=== PATIENT | female | born 1960 | race Caucasian/White ===

== ENCOUNTER 2017-04-26 13:57 | Emergency (ER) | payer BC ==
--- NOTE | 2017-04-26 15:21 | ED ---
General Adult HPI - General Chief complaint: Shortness of Breath Stated complaint: SOB Time Seen by Provider: 04/26/17 15:16 Source: patient Mode of arrival: ambulatory Limitations: no limitations - History of Present Illness Initial comments: Daisy is a 56-year-old every day cigarette smoker who presents to the emergency department today for evaluation of persistent cough and shortness of breath. Patient reports that she saw her primary care physician approximately 3 weeks ago and was diagnosed with bronchitis. At that time she was prescribed an antibiotic, despite being compliant with antibiotic Daisy reports she's had persistent nonproductive cough and progressively worsening shortness of breath. ALLERGY reports that she's been using her home nebulizer 1-2 times daily, though she did not use it today because she was too busy. She reports she has transient improvement in her symptoms after using her nebulizer however her shortness of breath and nonproductive cough persist. She reports a history of pulmonary embolism diagnosed 2 years ago, she states that at that time she had had bronchitis for approximately one month and was diagnosed with a pulmonary embolism. She states she did not stay in hospital and was not started on anticoagulation. She reports a vague tightness in her chest which she experienced last week but no recent chest pain, no exertional chest pain, nausea, vomiting, fevers, chills change in bowel or bladder habits. MD Complaint: Cough Onset/Timin -: week(s) Radiation: non-radiation Severity scale (1-10): 7 Consistency: intermittent Improves with: medication (Nebulizer) Worsens with: other (Smoking) Associated Symptoms: denies other symptoms - Related Data Home Medications Medication Instructions Recorded Confirmed Aspirin EC [Ecotrin Low Dose] 162 mg PO DAILY PRN 04/26/17 04/26/17 Previous Rx's Medication Instructions Recorded Azithromycin 250 mg PO DAILY #4 tablet 04/26/17 predniSONE 50 mg PO DAILY #5 tablet 04/26/17 Allergies Allergy/AdvReac Type Severity Reaction Status Date / Time Penicillins Allergy Unknown Verified 04/26/17 15:20 Review of Systems ROS Statement: Those systems with pertinent positive or pertinent negative responses have been documented in the HPI. ROS Other: All systems not noted in ROS Statement are negative. Constitutional: Denies: fever, chills Eyes: Denies: vision change ENT: Denies: throat pain, hearing loss Respiratory: Reports: cough, dyspnea, wheezes. Denies: hemoptysis, stridor Cardiovascular: Reports: dyspnea on exertion. Denies: chest pain, palpitations , orthopnea, edema Endocrine: Reports: fatigue Gastrointestinal: Denies: abdominal pain, nausea, vomiting Genitourinary: Denies: urgency, dysuria Musculoskeletal: Reports: back pain (Last week) Skin: Denies: rash, lesions Neurological: Denies: headache, weakness Psychiatric: Denies: anxiety, depression Hematological/Lymphatic: Denies: easy bleeding, easy bruising Past Medical History Past Medical History: Cancer, COPD, Pulmonary Embolus (PE) History of Any Multi-Drug Resistant Organisms: None Reported Past Surgical History: Appendectomy, Bladder Surgery, Cholecystectomy, Hysterectomy Additional Past Surgical History / Comment(s): cyst on breast removed, sinus surgery Past Psychological History: No Psychological Hx Reported Smoking Status: Current every day smoker Past Alcohol Use History: None Reported Past Drug Use History: None Reported General Exam Limitations: no limitations General appearance: alert, in no apparent distress Head exam: Present: atraumatic, normocephalic Eye exam: Present: normal appearance, PERRL ENT exam: Present: normal exam Neck exam: Present: normal inspection Respiratory exam: Present: wheezes, prolonged expiratory Cardiovascular Exam: Present: normal rhythm, tachycardia GI/Abdominal exam: Present: soft. Absent: distended, tenderness, guarding, rebound, rigid Rectal exam: Present: deferred Extremities exam: Present: normal inspection, full ROM, normal capillary refill. Absent: tenderness, pedal edema Back exam: Present: normal inspection Neurological exam: Present: alert, oriented X3 Psychiatric exam: Present: normal affect, normal mood Skin exam: Present: warm, dry Course Vital Signs 04/26/17 04/26/17 04/26/17 14:44 15:39 16:00 Temperature 99.4 F Pulse Rate 101 H 110 H Respiratory 18 26 H Rate Blood Pressure 127/78 O2 Sat by Pulse 97 Oximetry 04/26/17 04/26/17 04/26/17 16:29 17:20 17:56 Temperature 98 F Pulse Rate 122 H 97 Respiratory 18 16 Rate Blood Pressure 111/76 O2 Sat by Pulse 95 Oximetry Medical Decision Making - Medical Decision Making Patient was seen and evaluated, history was obtained from the patient Vital signs were reviewed, revealed tachycardia with a heart rate of 101 History and physical exam are concerning for bronchitis with COPD exacerbation, however given that the patient reports a history of pulmonary embolism there is also a high risk for pulmonary embolism Labs and duonebs were ordered Patient went improvement in wheezing and cough after DuoNeb's Labs with no significant abnormalities aside from elevated d-dimer for which a CT pulmonary embolus him study was ordered Chest x-ray with no acute findings CT pulmonary embolism study with no evidence of pulmonary embolus him, there is noted emphysematous changes as well as possible and to straighten the right upper lobe. At this point and will treat for community-acquired pneumonia as well as COPD exacerbation. Dose of azithromycin was ordered in the emergency department as well as a dose of Solu-Medrol for COPD exacerbation. Patient was discharged home with the remaining doses of a azithromycin Z-Shaun and prednisone for 5 days duration. Patient was advised that smoking sensation would likely improve her symptoms. Patient was advised to follow-up with her primary care physician by the end of the week for reevaluation of symptoms and possible referral to a solar applications development engineer. Patient requested an off work note for the dates of the to the , advised the patient that I cannot provide an off work note for this number of days however I will excuse her from work tonight and tomorrow night so she has time to rest before returning to work. She was agreeable to this. All questions pertaining to care were answered to the best of my ability and the patient was discharged home in stable condition with a diagnosis of COPD exacerbation and community-acquired pneumonia. Upon discharge the patient requested that the nurse provide her with a work note for the to the . I again reemphasized to the patient that I will only provide her a note for today and tomorrow. - Lab Data Result diagrams: 04/26/17 15:35 04/26/17 15:35 Lab Results 04/26/17 04/26/17 04/26/17 Range/Units 15:35 15:35 15:35 WBC 10.7 H (3.8-10.6) k/uL RBC 5.17 (3.80-5.40) m/uL Hgb 15.0 (11.4-16.0) gm/dL Hct 46.0 (34.0-46.0) % MCV 89.0 (80.0-100.0) fL MCH 29.1 (25.0-35.0) pg MCHC 32.7 (31.0-37.0) g/dL RDW 15.8 H (11.5-15.5) % Plt Count 389 (150-450) k/uL Neutrophils % 56 % Lymphocytes % 32 % Monocytes % 4 % Eosinophils % 6 % Basophils % 1 % Neutrophils # 5.9 (1.3-7.7) k/uL Lymphocytes # 3.4 (1.0-4.8) k/uL Monocytes # 0.4 (0-1.0) k/uL Eosinophils # 0.6 (0-0.7) k/uL Basophils # 0.1 (0-0.2) k/uL PT (9.0-12.0) sec INR (<1.2) APTT (22.0-30.0) sec D-Dimer (<0.60) mg/L FEU Sodium 142 (137-145) mmol/L Potassium 4.6 (3.5-5.1) mmol/L Chloride 109 H (98-107) mmol/L Carbon Dioxide 21 L (22-30) mmol/L Anion Gap 12 mmol/L BUN 9 (7-17) mg/dL Creatinine 0.83 (0.52-1.04) mg/dL Est GFR (MDRD) Af Amer >60 (>60 ml/min/1.73 sqM) Est GFR (MDRD) Non-Af >60 (>60 ml/min/1.73 sqM) Glucose 93 (74-99) mg/dL Calcium 9.9 (8.4-10.2) mg/dL Troponin I (0.000-0.034) ng/mL NT-Pro-B Natriuret Pep 124 pg/mL Urine Color Urine Appearance (Clear) Urine pH (5.0-8.0) Ur Specific [place] (1.001-1.035) Urine Protein (Negative) Urine Glucose (UA) (Negative) Urine Ketones (Negative) Urine Blood (Negative) Urine Nitrite (Negative) Urine Bilirubin (Negative) Urine Urobilinogen (<2.0) mg/dL Ur Leukocyte Esterase (Negative) 04/26/17 04/26/17 04/26/17 Range/Units 15:35 15:35 17:10 WBC (3.8-10.6) k/uL RBC (3.80-5.40) m/uL Hgb (11.4-16.0) gm/dL Hct (34.0-46.0) % MCV (80.0-100.0) fL MCH (25.0-35.0) pg MCHC (31.0-37.0) g/dL RDW (11.5-15.5) % Plt Count (150-450) k/uL Neutrophils % % Lymphocytes % % Monocytes % % Eosinophils % % Basophils % % Neutrophils # (1.3-7.7) k/uL Lymphocytes # (1.0-4.8) k/uL Monocytes # (0-1.0) k/uL Eosinophils # (0-0.7) k/uL Basophils # (0-0.2) k/uL PT 13.3 H (9.0-12.0) sec INR 1.4 H (<1.2) APTT 26.7 (22.0-30.0) sec D-Dimer 0.81 H (<0.60) mg/L FEU Sodium (137-145) mmol/L Potassium (3.5-5.1) mmol/L Chloride (98-107) mmol/L Carbon Dioxide (22-30) mmol/L Anion Gap mmol/L BUN (7-17) mg/dL Creatinine (0.52-1.04) mg/dL Est GFR (MDRD) Af Amer (>60 ml/min/1.73 sqM) Est GFR (MDRD) Non-Af (>60 ml/min/1.73 sqM) Glucose (74-99) mg/dL Calcium (8.4-10.2) mg/dL Troponin I <0.012 (0.000-0.034) ng/mL NT-Pro-B Natriuret Pep pg/mL Urine Color Yellow Urine Appearance Clear (Clear) Urine pH 5.5 (5.0-8.0) Ur Specific [place] 1.013 (1.001-1.035) Urine Protein Negative (Negative) Urine Glucose (UA) Negative (Negative) Urine Ketones Negative (Negative) Urine Blood Negative (Negative) Urine Nitrite Negative (Negative) Urine Bilirubin Negative (Negative) Urine Urobilinogen 2.0 (<2.0) mg/dL Ur Leukocyte Esterase Negative (Negative) Disposition Clinical Impression: Chronic bronchitis, CAP (community acquired pneumonia) Disposition: HOME SELF-CARE Condition: Good Instructions: Chronic Bronchitis (ED), Chronic Cough (ED) Prescriptions: Azithromycin 250 mg PO DAILY #4 tablet predniSONE 50 mg PO DAILY #5 tablet Referrals: None,Stated [Primary Care Provider] - 1-2 days Time of Disposition: 18:01
[2017-04-26] MEDS ORDERED: IPRATROPIUM-ALBUTEROL 3 ML NEB INHALATION STA ×3 (15:54→15:56)
[2017-04-26 15:56] LABS: Basophils # (A) 0.1 k/uL (0-0.2); Basophils % (A) 1 %; CH 30.2; CHCM 34.2; Eosinophils # (A) 0.6 k/uL (0-0.7); Eosinophils % (A) 6 %; HDW 2.52; Luc # (Auto) 0.16; Luc % (Auto) 2; Lymphocytes # (A) 3.4 k/uL (1.0-4.8); Lymphocytes % (A) 32 %; MCH 29.1 pg (25.0-35.0); MCHC 32.7 g/dL (31.0-37.0); Mean Platelet Volume 7.7; Monocytes # (A) 0.4 k/uL (0-1.0); Monocytes % (A) 4 %; Neutrophils # (A) 5.9 k/uL (1.3-7.7); Neutrophils % (A) 56 %; RBC 5.17 m/uL (3.80-5.40); RDW 15.8 % (11.5-15.5); WBC 10.7 k/uL (3.8-10.6); WBC (Perox) 10.55
[2017-04-26 16:09] LABS: INR 1.4 (<1.2); Partial Thromboplastin Time 26.7 sec (22.0-30.0); Prothrombin Time 13.3 sec (9.0-12.0)
[2017-04-26 16:12] LABS: Anion Gap 12 mmol/L; Blood Urea Nitrogen 9 mg/dL (7-17); Calcium 9.9 mg/dL (8.4-10.2); Carbon Dioxide 21 mmol/L (22-30); Chloride 109 mmol/L (98-107); Glucose 93 mg/dL (74-99); Non-African American GFR(MDRD) >60 (>60 ml/min/1.73 sqM); Potassium 4.6 mmol/L (3.5-5.1); Sodium 142 mmol/L (137-145)
[2017-04-26] MEDS ORDERED: RX INFO: IV CONTRAST WAS GIVEN 1 EACH MISC MISCELLANE PRN (16:15)
--- NOTE | 2017-04-26 17:12 | CT ---
EXAMINATION TYPE: CT angio chest DATE OF EXAM: 04/26/2017 COMPARISON: NONE HISTORY: SOB, hx of PE in past, elevated d-dimer CT DLP: 250.10 mGycm. Automated Exposure Control for Dose Reduction was Utilized. CONTRAST: CTA scan of the thorax is performed with IV Contrast, patient injected with 100 mL of Omnipaque 350, pulmonary embolism protocol. MIP Images are created on CT scanner and reviewed. FINDINGS: LUNGS: There is some patchy lingular and right middle lobe atelectasis and/or scarring. There is 11 x 7 mm focus of groundglass opacity medially right upper lobe near axial image 28. No suspicious addit ional consolidation or groundglass opacity is seen. There is background mild to moderate emphysematou s change. No concerning nodule or mass is present bilaterally. There is no pleural effusion or pneum othorax seen. There is mild central peribronchial wall thickening. MEDIASTINUM: There is satisfactory enhancement of the pulmonary artery and its branches, there is no CT evidence for pulmonary embolism. There are no greater than 1 cm hilar or mediastinal lymph nodes. No cardiomegaly or pericardial effusion is seen. Coronary artery calcification is present which is noted marker for coronary artery disease. OTHER: A small hiatal hernia is present. There is mild to moderate mixed plaque in visualized abdomin al aorta. Osseous structures are demineralized. Underlying scoliosis is present. Cholecystectomy clip s are noted. IMPRESSION: 1. No CT evidence for acute pulmonary embolism. 2. Mild to moderate emphysematous change with small area of focal acute infiltrate medial right upper lobe difficult to exclude.
--- NOTE | 2017-04-26 17:13 | XR ---
EXAMINATION TYPE: XR chest 2V DATE OF EXAM: 04/26/2017 COMPARISON: NONE HISTORY: Cough and shortness of breath for 5 days TECHNIQUE: Frontal and lateral views of the chest are obtained. FINDINGS: Underlying emphysematous change is felt present. There is no focal air space opacity, pleur al effusion, or pneumothorax seen. The cardiac silhouette size is within normal limits with atherosc lerotic change in aortic knob. The osseous structures are demineralized with underlying scoliosis s een. IMPRESSION: No suspicious acute cardiopulmonary process.
[2017-04-26 17:27] LABS: Appearance,Urine Clear (Clear); Bilirubin,Urine Negative (Negative); Glucose,Urine (UA) Negative (Negative); Ketones,Urine Negative (Negative); Leukocyte Esterase,Urine Negative (Negative); Nitrite,Urine Negative (Negative); PH, Urine 5.5 (5.0-8.0); Protein,Urine Negative (Negative); Specific Gravity,Urine 1.013 (1.001-1.035); UA Billing (MACRO vs. MICRO) CHEM
[2017-04-26] MEDS ORDERED: methylPREDNISolone SOD SUCCI 125 MG/2 ML VIAL IV STA (17:30)
[2017-04-26] MEDS ORDERED: AZITHROMYCIN 500 MG TAB PO STA (17:32)
[2017-04-26 17:56] VITALS: BP 111/76; PULSE 97; RESP 16; TEMP 98
== END 2017-04-26 18:00 | disposition home or self-care (01) ==
LOC: EC 13:57
DX: J18.9 Pneumonia, unspecified organism (principal); J42 Unspecified chronic bronchitis; R00.0 Tachycardia, unspecified; F17.200 Nicotine dependence, unspecified, uncomplicated; Z88.0 Allergy status to penicillin
CPT/HCPCS: 99285 ×2; 96374 ×2; 36415; 94640; 85379; 83880; 80048; 84484; 85025; 85610; 85730; 81003; 71020; 71275; J2930; Q9967

== ENCOUNTER → 2017-12-14 | Outpatient (CLI) | payer BC ==
--- NOTE | 2017-12-14 08:31 | XR ---
Lumbosacral spine HISTORY: Low back pain 5 views of the lumbosacral spine There is a levoscoliosis centered at L2. Surgical clips are present in the right upper quadrant. Bone mineralization is reduced. Vertebral body height is maintained. No evident spondylolysis. There is m ultilevel spondylosis. Sclerosis present in the posterior elements. Loss of disc height present at in tervertebral levels. Atherosclerotic vascular calcifications are noted. IMPRESSION: Scoliosis, osteopenia, degenerative disc disease and facet arthropathy.
--- NOTE | 2017-12-14 08:33 | XR ---
Right hip HISTORY: Right hip pain 2 views of the right hip Bone mineralization, joint space and alignment are maintained. 2 small ossific densities are present within the soft tissues which are well-corticated at the level of the greater trochanter and are inde terminate. Sclerotic density within the femoral head is likely a bone island. No fracture or dislocat ion. IMPRESSION: Indeterminate calcifications, consider hip MRI for better evaluation.
--- NOTE | 2017-12-21 12:42 | MM ---
Reason for exam: screening (asymptomatic). Last mammogram was performed 3 years and 2 months ago. History: Patient is postmenopausal, has history of other cancer at age 53, and has history of ovarian cancer at age 41. Family history of breast cancer in paternal aunt at age 50. Excisional biopsy of the left breast. 3 benign excisional biopsies of the left breast. Took estrogen for 6 months. Physical Findings: A clinical breast exam by your physician is recommended on an annual basis and results should be correlated with mammographic findings. MG Screening Mammo w CAD Bilateral CC and MLO view(s) were taken. Prior study comparison: October 10, 2014, mammogram, performed at [facility]. October 09, 2014, mammogram, performed at [facility]. The breast tissue is heterogeneously dense. This may lower the sensitivity of mammography. Previous mammotome biopsy in the left breast. No significant changes when compared with prior studies. ASSESSMENT: Benign, BI-RAD 2 RECOMMENDATION: Routine screening mammogram of both breasts in 1 year.
== END | disposition home or self-care (01) ==
LOC: RADMAMWWP 07:38
PROVIDERS: ATTEND Family Medicine
DX: Z12.31 Encounter for screening mammogram for malignant neoplasm of breast (principal); M51.37 Other intervertebral disc degeneration, lumbosacral region; M46.97 Unspecified inflammatory spondylopathy, lumbosacral region; M85.88 Other specified disorders of bone density and structure, other site; M41.87 Other forms of scoliosis, lumbosacral region; M25.851 Other specified joint disorders, right hip
CPT/HCPCS: 72110; 73502; 77067

== ENCOUNTER → 2018-01-11 | Outpatient (CLI) | payer BC ==
--- NOTE | 2018-01-11 16:25 | BD ---
EXAMINATION TYPE: Axial Bone Density DATE OF EXAM: 01/11/2018 COMPARISON: NONE CLINICAL HISTORY: 57-year-old female disorders of bone density and structure, postmenopausal screenin g Height: 5 FT 3 1/2IN Weight: 167 FRAX RISK QUESTIONS: History of Fracture in Adulthood: YES Secondary Osteoporosis: 3. Menopause before 45: YES Rheumatoid Arthritis: YES Current Tobacco Use: YES RISK FACTORS HISTORY OF: Active: YES Postmenopausal woman: TOTAL HYST AGE 44 How long: TOOK FOR ONE MONTH MEDICATIONS: Additional Medications: LIPITOR Additional History: BLADDER CANCER AGE 51 NO CHEMO OR RADIATION, CARPAL TUNNEL RT WRIST EXAM MEASUREMENTS: Bone mineral densitometry was performed using the [employer] System. Bone mineral density as measured about the Lumbar spine is: ----- L1-L4(G/cm2): 0.959 T Score Values are as follows: ----- L2: -3.1 ----- L3: -1.6 ----- L4: -1.0 ----- L1-L4: -1.8 BASELINE Bone mineral density about the R hip (g/cm2): 0.729 Bone mineral density about the L hip (g/cm2): 0.771 T Score values are as follows: -----R Neck: -2.2 -----L Neck: -1.9 -----R Total: -1.9 -----L Total: -1.6 BASELINE IMPRESSION: Osteopenia (T Score between -2.5 and -1). There is slightly increased risk of fracture and the patient may be considered for treatment. Re-Screen 2-5 years. NOTE: T-SCORE=SD OF THE YOUNG ADULT MEAN.
== END | disposition home or self-care (01) ==
LOC: RADBDWWP 07:32
PROVIDERS: ATTEND Family Medicine
DX: M85.89 Other specified disorders of bone density and structure, multiple sites (principal)
CPT/HCPCS: 77080

== ENCOUNTER 2018-04-26 12:29 | Inpatient (IN) | payer BC ==
[2018-04-26] MEDS ORDERED: methylPREDNISolone SOD SUCCI 125 MG/2 ML VIAL IV STA (13:11)
[2018-04-26] MEDS ORDERED: IPRATROPIUM-ALBUTEROL 3 ML NEB INHALATION STA (13:12)
--- NOTE | 2018-04-26 13:14 | ED ---
SOB HPI - General Chief Complaint: Shortness of Breath Stated Complaint: Poss Pneumonia-sent by Time Seen by Provider: 04/26/18 13:07 Source: patient, RN notes reviewed Mode of arrival: ambulatory Limitations: no limitations - History of Present Illness Initial Comments: 57-year-old female presents emergency Department chief complaint of shortness of breath. Patient states she's been sick for 1 week on Biaxin and treated for upper extremity infection COPD. Patient states that she continues to smoke with known COPD. Patient states that she's been on no recent steroids. Patient denies fever, chills, headache or dizziness. Patient states she has no chest pain but she has chest tightness. Patient states is related to her cough. Patient denies any nausea vomiting. - Related Data Home Medications Medication Instructions Recorded Confirmed Ibuprofen [Motrin Ib] 800 mg PO Q6H PRN 04/26/18 04/26/18 Allergies Allergy/AdvReac Type Severity Reaction Status Date / Time Penicillins Allergy Unknown Verified 04/26/18 13:59 Review of Systems ROS Statement: Those systems with pertinent positive or pertinent negative responses have been documented in the HPI. ROS Other: All systems not noted in ROS Statement are negative. Past Medical History Past Medical History: Cancer, COPD, Pulmonary Embolus (PE) History of Any Multi-Drug Resistant Organisms: None Reported Past Surgical History: Appendectomy, Bladder Surgery, Cholecystectomy, Hysterectomy Additional Past Surgical History / Comment(s): cyst on breast removed, sinus surgery Past Psychological History: No Psychological Hx Reported Smoking Status: Current every day smoker Past Alcohol Use History: None Reported Past Drug Use History: None Reported General Exam Limitations: no limitations General appearance: alert, in no apparent distress Head exam: Present: atraumatic, normocephalic, normal inspection Eye exam: Present: normal appearance, PERRL, EOMI. Absent: scleral icterus, conjunctival injection, periorbital swelling ENT exam: Present: normal exam, normal oropharynx, mucous membranes moist, TM's normal bilaterally, normal external ear exam Neck exam: Present: normal inspection, full ROM. Absent: tenderness, meningismus, lymphadenopathy Respiratory exam: Present: respiratory distress (Mild), wheezes, decreased breath sounds. Absent: normal lung sounds bilaterally, rales, rhonchi, stridor Cardiovascular Exam: Present: normal rhythm, tachycardia, normal heart sounds. Absent: systolic murmur, diastolic murmur, rubs, gallop, clicks Course Vital Signs 04/26/18 04/26/18 04/26/18 12:43 13:00 13:26 Temperature 98.1 F Pulse Rate 117 H Pulse Rate [ 90 [employer] ] Respiratory 24 20 Rate Blood Pressure 135/91 113/85 O2 Sat by Pulse 97 96 Oximetry 04/26/18 04/26/18 04/26/18 13:30 13:40 13:50 Temperature Pulse Rate 95 87 89 Pulse Rate [ [employer] ] Respiratory 14 12 23 Rate Blood Pressure 113/85 113/85 113/85 O2 Sat by Pulse 98 97 97 Oximetry 04/26/18 04/26/18 04/26/18 14:00 14:07 14:10 Temperature 98.0 F Pulse Rate 86 89 85 Pulse Rate [ [employer] ] Respiratory 16 11 L Rate Blood Pressure 110/79 110/79 O2 Sat by Pulse 97 99 Oximetry 04/26/18 04/26/18 14:20 14:23 Temperature Pulse Rate 93 90 Pulse Rate [ [employer] ] Respiratory 11 L Rate Blood Pressure 110/79 O2 Sat by Pulse 100 Oximetry Medical Decision Making - Lab Data Result diagrams: 04/26/18 12:56 04/26/18 12:56 Lab Results 04/26/18 04/26/18 04/26/18 Range/Units 12:56 12:56 12:56 WBC 10.6 (3.8-10.6) k/uL RBC 5.51 H (3.80-5.40) m/uL Hgb 15.9 (11.4-16.0) gm/dL Hct 47.9 H (34.0-46.0) % MCV 87.0 (80.0-100.0) fL MCH 28.8 (25.0-35.0) pg MCHC 33.1 (31.0-37.0) g/dL RDW 14.1 (11.5-15.5) % Plt Count 400 (150-450) k/uL Neutrophils % 50 % Lymphocytes % 38 % Monocytes % 5 % Eosinophils % 4 % Basophils % 1 % Neutrophils # 5.3 (1.3-7.7) k/uL Lymphocytes # 4.0 (1.0-4.8) k/uL Monocytes # 0.5 (0-1.0) k/uL Eosinophils # 0.4 (0-0.7) k/uL Basophils # 0.1 (0-0.2) k/uL PT (9.0-12.0) sec INR (<1.2) APTT (22.0-30.0) sec Sodium 140 (137-145) mmol/L Potassium 4.4 (3.5-5.1) mmol/L Chloride 106 (98-107) mmol/L Carbon Dioxide 24 (22-30) mmol/L Anion Gap 10 mmol/L BUN 12 (7-17) mg/dL Creatinine 0.91 (0.52-1.04) mg/dL Est GFR (CKD-EPI)AfAm 82 (>60 ml/min/1.73 sqM) Est GFR (CKD-EPI)NonAf 71 (>60 ml/min/1.73 sqM) Glucose 93 (74-99) mg/dL Calcium 10.3 H (8.4-10.2) mg/dL Magnesium 2.1 (1.6-2.3) mg/dL Total Bilirubin 0.5 (0.2-1.3) mg/dL AST 24 (14-36) U/L ALT 30 (9-52) U/L Alkaline Phosphatase 110 (38-126) U/L Total Creatine Kinase 115 (30-135) U/L CK-MB (CK-2) 1.3 (0.0-2.4) ng/mL CK-MB (CK-2) Rel Index 1.1 Troponin I <0.012 (0.000-0.034) ng/mL Total Protein 8.0 (6.3-8.2) g/dL Albumin 4.7 (3.5-5.0) g/dL 04/26/18 Range/Units 12:56 WBC (3.8-10.6) k/uL RBC (3.80-5.40) m/uL Hgb (11.4-16.0) gm/dL Hct (34.0-46.0) % MCV (80.0-100.0) fL MCH (25.0-35.0) pg MCHC (31.0-37.0) g/dL RDW (11.5-15.5) % Plt Count (150-450) k/uL Neutrophils % % Lymphocytes % % Monocytes % % Eosinophils % % Basophils % % Neutrophils # (1.3-7.7) k/uL Lymphocytes # (1.0-4.8) k/uL Monocytes # (0-1.0) k/uL Eosinophils # (0-0.7) k/uL Basophils # (0-0.2) k/uL PT 9.7 (9.0-12.0) sec INR 1.0 (<1.2) APTT 24.2 (22.0-30.0) sec Sodium (137-145) mmol/L Potassium (3.5-5.1) mmol/L Chloride (98-107) mmol/L Carbon Dioxide (22-30) mmol/L Anion Gap mmol/L BUN (7-17) mg/dL Creatinine (0.52-1.04) mg/dL Est GFR (CKD-EPI)AfAm (>60 ml/min/1.73 sqM) Est GFR (CKD-EPI)NonAf (>60 ml/min/1.73 sqM) Glucose (74-99) mg/dL Calcium (8.4-10.2) mg/dL Magnesium (1.6-2.3) mg/dL Total Bilirubin (0.2-1.3) mg/dL AST (14-36) U/L ALT (9-52) U/L Alkaline Phosphatase (38-126) U/L Total Creatine Kinase (30-135) U/L CK-MB (CK-2) (0.0-2.4) ng/mL CK-MB (CK-2) Rel Index Troponin I (0.000-0.034) ng/mL Total Protein (6.3-8.2) g/dL Albumin (3.5-5.0) g/dL Disposition Clinical Impression: COPD exacerbation, Failure of outpatient treatment Disposition: ADMITTED IP TO THIS HOSP Condition: Fair Referrals: Marshall Beck MD [Primary Care Provider] - 1-2 days
[2018-04-26 13:40] LABS: Basophils # (A) 0.1 k/uL (0-0.2); Basophils % (A) 1 %; Eosinophils # (A) 0.4 k/uL (0-0.7); Eosinophils % (A) 4 %; HCT 47.9 % (34.0-46.0); HGB 15.9 gm/dL (11.4-16.0); Lymphocytes % (A) 38 %; MCH 28.8 pg (25.0-35.0); MCHC 33.1 g/dL (31.0-37.0); Mean Platelet Volume 7.3; Monocytes # (A) 0.5 k/uL (0-1.0); Monocytes % (A) 5 %; Neutrophils # (A) 5.3 k/uL (1.3-7.7); Neutrophils % (A) 50 %; Platelet Count 400 k/uL (150-450); RBC 5.51 m/uL (3.80-5.40); RDW 14.1 % (11.5-15.5); WBC 10.6 k/uL (3.8-10.6)
[2018-04-26 13:51] LABS: Albumin 4.7 g/dL (3.5-5.0); Calcium 10.3 mg/dL (8.4-10.2); Magnesium 2.1 mg/dL (1.6-2.3); Potassium 4.4 mmol/L (3.5-5.1); Total Bilirubin 0.5 mg/dL (0.2-1.3)
[2018-04-26 13:52] LABS: Partial Thromboplastin Time 24.2 sec (22.0-30.0); Prothrombin Time 9.7 sec (9.0-12.0)
[2018-04-26 14:05] LABS: Creatine Kinase 115 U/L (30-135)
--- NOTE | 2018-04-26 14:14 | XR ---
EXAMINATION TYPE: XR chest 2V DATE OF EXAM: 04/26/2018 COMPARISON: Prior chest x-ray 04/26/2017 HISTORY: Shortness of breath and cough, chest pain TECHNIQUE: Frontal and lateral views of the chest are obtained. FINDINGS: There is no focal air space opacity, pleural effusion, or pneumothorax seen. The cardiac silhouette size is stable. There is bronchial wall thickening. The osseous structures are intact. P rominent lung lines are compatible with underlying COPD. The aorta is dense. Biapical pleural thicken ing is noted. There is eventration of the hemidiaphragms. There are overlying cardiac leads. Surgical clips present in the upper abdomen. IMPRESSION: Correlate for bronchitis, reactive airways disease. Emphysema.
[2018-04-26 14:16] LABS: Creatine Kinase MB 1.3 ng/mL (0.0-2.4); Troponin I <0.012 ng/mL (0.000-0.034)
[2018-04-26] MEDS ORDERED: ALBUTEROL NEBULIZED 2.5 MG/3 ML INHALATION STA (14:29)
[2018-04-26] MEDS ORDERED: ALBUTEROL NEBULIZED 2.5 MG/3 ML INHALATION PRN (14:36)
[2018-04-26 16:50] VITALS: BMI 27.0
[2018-04-26] MEDS ORDERED: methylPREDNISolone SOD SUCCI 125 MG/2 ML VIAL IV SCH (18:00)
[2018-04-26] MEDS ORDERED: predniSONE 20 MG TAB PO SCH (18:00)
--- NOTE | 2018-04-26 18:03 | P.HPIM ---
History of Present Illness 57-year-old female presents emergency Department chief complaint of shortness of breath. Patient states she's been sick for 1 week on Biaxin and treated for upper respiratory infection COPD. Patient states that she continues to smoke with known COPD. Patient states that she's been on no recent steroids. Patient denies fever, chills, headache or dizziness. Patient states she has no chest pain but she has chest tightness. Patient states is related to her cough. Patient denies any nausea vomiting. Patient denied any fever chills chest x-ray did not show any pneumonic process. Review of Systems REVIEW OF SYSTEMS: CONSTITUTIONAL: No fever, no malaise, no fatigue. HEENT: No recent visual problems or hearing problems. Denied any sore throat. CARDIOVASCULAR: No chest pain, orthopnea, PND, no palpitations, no syncope. PULMONARY: no hemoptysis. GASTROINTESTINAL: No diarrhea, no nausea, no vomiting, no abdominal pain. Normoactive bowel sounds. NEUROLOGICAL: No headaches, no weakness, no numbness. HEMATOLOGICAL: Denies any bleeding or petechiae. GENITOURINARY: Denies any burning micturition, frequency, or urgency. MUSCULOSKELETAL/RHEUMATOLOGICAL: Denies any joint pain, swelling, or any muscle pain. ENDOCRINE: Denies any polyuria or polydipsia. The rest of the 14-point review of systems is negative. Past Medical History Past Medical History: Cancer, COPD, Pulmonary Embolus (PE) Additional Past Medical History / Comment(s): bladder cancer History of Any Multi-Drug Resistant Organisms: None Reported Past Surgical History: Appendectomy, Bladder Surgery, Cholecystectomy, Hysterectomy Additional Past Surgical History / Comment(s): bladder surgery to remove cancer. cyst on breast removed,. sinus surgery Past Anesthesia/Blood Transfusion Reactions: No Reported Reaction Past Psychological History: No Psychological Hx Reported Smoking Status: Current every day smoker Past Alcohol Use History: None Reported Additional Past Alcohol Use History / Comment(s): 1/2 pack per day Past Drug Use History: None Reported - Past Family History Mother Additional Family Medical History / Comment(s): liver cirrhosis Father Family Medical History: Myocardial Infarction ([place]) Medications and Allergies Home Medications Medication Instructions Recorded Confirmed Type Ibuprofen [Motrin Ib] 800 mg PO Q6H PRN 04/26/18 04/26/18 History Allergies Allergy/AdvReac Type Severity Reaction Status Date / Time Penicillins Allergy Unknown Verified 04/26/18 13:59 Physical Exam Vitals: Vital Signs Temp Pulse Pulse Resp BP BP Pulse Ox 04/26/18 16:40 98.1 F 93 18 107/72 95 04/26/18 16:10 98.1 F 96 12 118/80 96 04/26/18 16:00 93 17 113/72 04/26/18 15:50 96 13 113/72 94 L 04/26/18 15:40 92 17 113/72 98 04/26/18 15:30 93 16 112/90 97 04/26/18 15:20 98.1 F 94 17 112/90 94 L 04/26/18 15:10 94 15 112/90 98 04/26/18 15:00 91 15 110/79 04/26/18 14:50 106 H 16 110/79 96 04/26/18 14:47 104 H 04/26/18 14:40 93 10 L 110/79 100 04/26/18 14:35 89 04/26/18 14:30 93 12 110/79 97 04/26/18 14:23 90 04/26/18 14:20 93 11 L 110/79 100 04/26/18 14:10 98.0 F 85 11 L 110/79 99 04/26/18 14:07 89 04/26/18 14:00 86 16 110/79 97 04/26/18 13:50 89 23 113/85 97 04/26/18 13:40 87 12 113/85 97 04/26/18 13:30 95 14 113/85 98 04/26/18 13:26 113/85 96 04/26/18 13:00 90 20 04/26/18 12:43 98.1 F 117 H 24 135/91 97 Intake and Output 04/26/18 04/26/18 04/26/18 06:59 14:59 22:59 Other: # Voids 1 Weight 72.575 kg 73.754 kg PHYSICAL EXAMINATION: GENERAL: The patient is alert and oriented x3, not in any acute distress. Well developed, well nourished. [place] was a breathing with minimal exertion HEENT: Pupils are round and equally reacting to light. EOMI. No scleral icterus. No conjunctival pallor. Normocephalic, atraumatic. No pharyngeal erythema. No thyromegaly. CARDIOVASCULAR: S1 and S2 present. No murmurs, rubs, or gallops. PULMONARY: Limited air entry into bilateral lung galarza with significant wheezing ABDOMEN: Soft, nontender, nondistended, normoactive bowel sounds. No palpable organomegaly. MUSCULOSKELETAL: No joint swelling or deformity. EXTREMITIES: No cyanosis, clubbing, or pedal edema. NEUROLOGICAL: Gross neurological examination did not reveal any focal deficits. SKIN: No rashes. Results CBC & Chem 7: 04/26/18 12:56 04/26/18 12:56 Labs: Abnormal Lab Results - Last 24 Hours (Table) 04/26/18 04/26/18 Range/Units 12:56 12:56 RBC 5.51 H (3.80-5.40) m/uL Hct 47.9 H (34.0-46.0) % Calcium 10.3 H (8.4-10.2) mg/dL Thrombosis Risk Factor Assmnt - Choose All That Apply Each Factor Represents 1 point: Abnormal pulmonary function (COPD), Age 41-60 years, Obesity (BMI >25) Thrombosis Risk Factor Assessment Total Risk Factor Score: 3 Thrombosis Risk Factor Assessment Level: Moderate Risk Assessment and Plan Plan: -COPD exacerbation: Patient will be started on oral steroids IV steroids will be discontinued patient was started on doxycycline hospital ipratropium nebulization treatments -Nicotine abuse: Counseling was provided -History of PE not in any anticoagulation presently
[2018-04-26] MEDS: IPRATROPIUM-ALBUTEROL 3 ML NEB INHALATION SCH ×2 (18:13→19:02)
[2018-04-26] MEDS ORDERED: FAMOTIDINE 20 MG TAB PO SCH (21:00)
[2018-04-27] MEDS: IPRATROPIUM-ALBUTEROL 3 ML NEB INHALATION SCH ×2 (08:37→12:18)
[2018-04-27] MEDS ORDERED: predniSONE 20 MG TAB PO SCH ×2 (09:00)
[2018-04-27 09:16] VITALS: RESP 16
[2018-04-27 13:04] VITALS: BP 130/72; PULSE 105; TEMP 98.3
--- NOTE | 2018-04-27 15:54 | P.DS ---
Providers Date of admission: 04/26/18 14:46 Attending physician: Samy Edwards Primary care physician: [facility] Course: 57-year-old female presents emergency Department chief complaint of shortness of breath. Patient states she's been sick for 1 week on Biaxin and treated for upper respiratory infection COPD. Patient states that she continues to smoke with known COPD. Patient states that she's been on no recent steroids. Patient denies fever, chills, headache or dizziness. Patient states she has no chest pain but she has chest tightness. Patient states is related to her cough. Patient denies any nausea vomiting. Patient denied any fever chills chest x-ray did not show any pneumonic process. 04/27/2018 Patient's COPD significant improvement good air entry into bilateral lung galarza no wheezing patient is being discharged today. PHYSICAL EXAMINATION: GENERAL: The patient is alert and oriented x3, not in any acute distress. Well developed, well nourished. HEENT: Pupils are round and equally reacting to light. EOMI. No scleral icterus. No conjunctival pallor. Normocephalic, atraumatic. No pharyngeal erythema. No thyromegaly. CARDIOVASCULAR: S1 and S2 present. No murmurs, rubs, or gallops. PULMONARY: Chest is clear to auscultation, no wheezing or crackles. ABDOMEN: Soft, nontender, nondistended, normoactive bowel sounds. No palpable organomegaly. MUSCULOSKELETAL: No joint swelling or deformity. EXTREMITIES: No cyanosis, clubbing, or pedal edema. NEUROLOGICAL: Gross neurological examination did not reveal any focal deficits. SKIN: No rashes. Assessment and Plan Plan: -COPD exacerbation: -Nicotine abuse: Counseling was provided -History of PE not in any anticoagulation presently Patient Condition at Discharge: Fair Plan - Discharge Summary New Discharge Prescriptions: New Albuterol Inhaler [Ventolin Hfa Inhaler] 1 - 2 puff INHALATION Q6HR PRN #1 inhaler PRN Reason: Shortness Of Breath Or Wheezing Budesonide-Formot 160-4.5 Mcg [Symbicort 160-4.5 Mcg Inhaler] 2 puff INHALATION BID #1 inhaler Doxycycline Monohydrate [Monodox] 100 mg PO BID 3 Days #6 cap predniSONE 10 mg PO DAILY #30 tab Tiotropium [place] [Spiriva] 1 cap INHALATION DAILY #1 device No Action Ibuprofen [Motrin Ib] 800 mg PO Q6H PRN PRN Reason: Pain Discharge Medication List Ibuprofen [Motrin Ib] 800 mg PO Q6H PRN 04/26/18 [History] Albuterol Inhaler [Ventolin Hfa Inhaler] 1 - 2 puff INHALATION Q6HR PRN #1 inhaler 04/27/18 [Rx] Budesonide-Formot 160-4.5 Mcg [Symbicort 160-4.5 Mcg Inhaler] 2 puff INHALATION BID #1 inhaler 04/27/18 [Rx] Doxycycline Monohydrate [Monodox] 100 mg PO BID 3 Days #6 cap 04/27/18 [Rx] Tiotropium [place] [Spiriva] 1 cap INHALATION DAILY #1 device 04/27/18 [Rx] predniSONE 10 mg PO DAILY #30 tab 04/27/18 [Rx] Follow up Appointment(s)/Referral(s): Marshall Beck MD [Primary Care Provider] - 3 Days Cory Harkins MD [STAFF PHYSICIAN] - 1 Week (10:00am on May 14) Patient Instructions/Handouts: Famotidine (By mouth), Albuterol (By breathing) , Prednisone (By mouth), COPD (Chronic Obstructive Pulmonary Disease) (GEN), Shortness of Breath (GEN) Discharge Disposition: HOME SELF-CARE
== END 2018-04-27 13:33 | disposition home or self-care (01) | DRG 192 ==
LOC: EC 12:29 → 4MS4W 14:46 → 6PED 16:08
PROVIDERS: ADMIT Internal Medicine; ATTEND Internal Medicine
DX: J44.1 Chronic obstructive pulmonary disease with (acute) exacerbation (principal); Z71.6 Tobacco abuse counseling; F17.210 Nicotine dependence, cigarettes, uncomplicated; Z82.49 Family history of ischemic heart disease and other diseases of the circulatory system; Z85.51 Personal history of malignant neoplasm of bladder; Z86.711 Personal history of pulmonary embolism; Z90.710 Acquired absence of both cervix and uterus; J06.9 Acute upper respiratory infection, unspecified; Z88.0 Allergy status to penicillin
CPT/HCPCS: 36415; 71046; 80053; 82550; 82553; 83735; 84484; 85025; 85610; 85730; 93005; 94640; 94760; 96374; 99285

== ENCOUNTER 2018-06-15 15:22 | Emergency (ER) | payer BC ==
[2018-06-15] MEDS ORDERED: SODIUM CHLORIDE 0.9% 1,000 ML IV STA (15:41)
[2018-06-15] MEDS ORDERED: ONDANSETRON 4 MG/2 ML VIAL IVP STA (15:41)
[2018-06-15] MEDS ORDERED: DICYCLOMINE 10 MG/ML 2 ML AMP IM STA (15:41)
[2018-06-15] MEDS ORDERED: FAMOTIDINE 20 MG/2 ML VIAL IV STA (15:41)
--- NOTE | 2018-06-15 15:44 | ED ---
General Adult HPI - General Chief complaint: Abdominal Pain Stated complaint: abd pain Time Seen by Provider: 06/15/18 15:34 Source: patient, RN notes reviewed Mode of arrival: ambulatory Limitations: no limitations - History of Present Illness Initial comments: Patient is a pleasant 57-year-old female presenting to the emergency department complaints of abdominal discomfort. Onset of symptoms was 2 days ago. Patient was having diarrhea up to 10 times daily for 2 days however this is now resolved. Patient does have diffuse abdominal cramping. Patient has nausea and decreased appetite without vomiting. No fevers. This is not a chronic problem. Patient did see her primary care physician prior to arrival and was advised come to the emergency department. - Related Data Home Medications Medication Instructions Recorded Confirmed Albuterol Inhaler [Ventolin Hfa 1 - 2 puff INHALATION RT-QID PRN 06/15/18 Inhaler] Budesonide-Formot 160-4.5 Mcg 2 puff INHALATION RT-BID 06/15/18 06/15/18 [Symbicort 160-4.5 Mcg Inhaler] Loperamide HCl [Imodium A-D] 2 - 4 mg PO QID PRN 06/15/18 06/15/18 Tiotropium [place] [Spiriva] 1 cap INHALATION RT-DAILY 06/15/18 06/15/18 Previous Rx's Medication Instructions Recorded Dicyclomine [Bentyl] 20 mg PO QID PRN #20 tablet 06/15/18 Allergies Allergy/AdvReac Type Severity Reaction Status Date / Time Penicillins Allergy Rash/Hives/ Verified 06/15/18 16:03 Nausea Review of Systems ROS Statement: Those systems with pertinent positive or pertinent negative responses have been documented in the HPI. ROS Other: All systems not noted in ROS Statement are negative. Constitutional: Denies: fever, chills Eyes: Denies: eye pain ENT: Denies: ear pain Respiratory: Denies: cough, dyspnea Cardiovascular: Denies: chest pain Endocrine: Denies: fatigue Gastrointestinal: Reports: abdominal pain, nausea, diarrhea. Denies: vomiting Genitourinary: Denies: dysuria Musculoskeletal: Denies: back pain Skin: Denies: rash Neurological: Denies: weakness Past Medical History Past Medical History: Cancer, COPD, Pulmonary Embolus (PE) Additional Past Medical History / Comment(s): bladder cancer- post surgical now History of Any Multi-Drug Resistant Organisms: None Reported Past Surgical History: Appendectomy, Bladder Surgery, Cholecystectomy, Hysterectomy Additional Past Surgical History / Comment(s): bladder surgery to remove cancer. cyst on breast removed,. sinus surgery Past Anesthesia/Blood Transfusion Reactions: No Reported Reaction Past Psychological History: No Psychological Hx Reported Smoking Status: Current every day smoker Past Alcohol Use History: None Reported Past Drug Use History: None Reported - Past Family History Mother Additional Family Medical History / Comment(s): liver cirrhosis Father Family Medical History: Myocardial Infarction ([place]) General Exam Limitations: no limitations General appearance: alert, in no apparent distress Head exam: Present: atraumatic Eye exam: Present: normal appearance, PERRL ENT exam: Present: normal oropharynx Neck exam: Present: normal inspection Respiratory exam: Present: normal lung sounds bilaterally Cardiovascular Exam: Present: regular rate, normal rhythm Expanded Peripheral pulses: 2+: Posterior Tibialis (R), Posterior Tibialis (L) GI/Abdominal exam: Present: soft, tenderness (Mild to moderate diffuse tenderness), hyperactive bowel sounds. Absent: distended, guarding, rigid, pulsatile mass Extremities exam: Present: normal inspection Neurological exam: Present: alert Psychiatric exam: Present: normal affect, normal mood Skin exam: Present: normal color Course Vital Signs 06/15/18 06/15/18 15:26 16:44 Temperature 98.3 F Pulse Rate 87 82 Respiratory 18 16 Rate Blood Pressure 126/85 121/71 O2 Sat by Pulse 98 100 Oximetry Medical Decision Making - Medical Decision Making Patient reevaluated and resting comfortably in bed. Patient still has discomfort however refuses morphine. Patient is receptive to Tylenol with codeine. Patient and family updated on results and need for follow-up. - Lab Data Result diagrams: 06/15/18 15:55 06/15/18 15:55 Lab Results 06/15/18 06/15/18 06/15/18 Range/Units 15:55 15:55 15:55 WBC 11.3 H (3.8-10.6) k/uL RBC 5.04 (3.80-5.40) m/uL Hgb 14.5 (11.4-16.0) gm/dL Hct 43.3 (34.0-46.0) % MCV 85.8 (80.0-100.0) fL MCH 28.7 (25.0-35.0) pg MCHC 33.5 (31.0-37.0) g/dL RDW 14.5 (11.5-15.5) % Plt Count 315 (150-450) k/uL Neutrophils % 56 % Lymphocytes % 34 % Monocytes % 4 % Eosinophils % 4 % Basophils % 1 % Neutrophils # 6.3 (1.3-7.7) k/uL Lymphocytes # 3.8 (1.0-4.8) k/uL Monocytes # 0.5 (0-1.0) k/uL Eosinophils # 0.4 (0-0.7) k/uL Basophils # 0.1 (0-0.2) k/uL PT 18.1 H (9.0-12.0) sec INR 2.0 H (<1.2) APTT 33.3 H (22.0-30.0) sec Sodium 141 (137-145) mmol/L Potassium 4.0 (3.5-5.1) mmol/L Chloride 108 H (98-107) mmol/L Carbon Dioxide 24 (22-30) mmol/L Anion Gap 9 mmol/L BUN 9 (7-17) mg/dL Creatinine 0.93 (0.52-1.04) mg/dL Est GFR (CKD-EPI)AfAm 80 (>60 ml/min/1.73 sqM) Est GFR (CKD-EPI)NonAf 69 (>60 ml/min/1.73 sqM) Glucose 94 (74-99) mg/dL Calcium 9.7 (8.4-10.2) mg/dL Total Bilirubin 0.4 (0.2-1.3) mg/dL AST 33 (14-36) U/L ALT 21 (9-52) U/L Alkaline Phosphatase 107 (38-126) U/L Total Protein 7.8 (6.3-8.2) g/dL Albumin 4.5 (3.5-5.0) g/dL Amylase 47 (30-110) U/L Lipase 28 (23-300) U/L Urine Color Urine Appearance (Clear) Urine pH (5.0-8.0) Ur Specific [place] (1.001-1.035) Urine Protein (Negative) Urine Glucose (UA) (Negative) Urine Ketones (Negative) Urine Blood (Negative) Urine Nitrite (Negative) Urine Bilirubin (Negative) Urine Urobilinogen (<2.0) mg/dL Ur Leukocyte Esterase (Negative) Urine RBC (0-5) /hpf Urine WBC (0-5) /hpf Ur Squamous Epith Cells (0-4) /hpf Urine Bacteria (None) /hpf Urine Mucus (None) /hpf 06/15/18 Range/Units 15:55 WBC (3.8-10.6) k/uL RBC (3.80-5.40) m/uL Hgb (11.4-16.0) gm/dL Hct (34.0-46.0) % MCV (80.0-100.0) fL MCH (25.0-35.0) pg MCHC (31.0-37.0) g/dL RDW (11.5-15.5) % Plt Count (150-450) k/uL Neutrophils % % Lymphocytes % % Monocytes % % Eosinophils % % Basophils % % Neutrophils # (1.3-7.7) k/uL Lymphocytes # (1.0-4.8) k/uL Monocytes # (0-1.0) k/uL Eosinophils # (0-0.7) k/uL Basophils # (0-0.2) k/uL PT (9.0-12.0) sec INR (<1.2) APTT (22.0-30.0) sec Sodium (137-145) mmol/L Potassium (3.5-5.1) mmol/L Chloride (98-107) mmol/L Carbon Dioxide (22-30) mmol/L Anion Gap mmol/L BUN (7-17) mg/dL Creatinine (0.52-1.04) mg/dL Est GFR (CKD-EPI)AfAm (>60 ml/min/1.73 sqM) Est GFR (CKD-EPI)NonAf (>60 ml/min/1.73 sqM) Glucose (74-99) mg/dL Calcium (8.4-10.2) mg/dL Total Bilirubin (0.2-1.3) mg/dL AST (14-36) U/L ALT (9-52) U/L Alkaline Phosphatase (38-126) U/L Total Protein (6.3-8.2) g/dL Albumin (3.5-5.0) g/dL Amylase (30-110) U/L Lipase (23-300) U/L Urine Color Yellow Urine Appearance Clear (Clear) Urine pH 5.0 (5.0-8.0) Ur Specific [place] 1.011 (1.001-1.035) Urine Protein Negative (Negative) Urine Glucose (UA) Negative (Negative) Urine Ketones Negative (Negative) Urine Blood Small H (Negative) Urine Nitrite Negative (Negative) Urine Bilirubin Negative (Negative) Urine Urobilinogen <2.0 (<2.0) mg/dL Ur Leukocyte Esterase Small H (Negative) Urine RBC 2 (0-5) /hpf Urine WBC 4 (0-5) /hpf Ur Squamous Epith Cells 1 (0-4) /hpf Urine Bacteria Rare H (None) /hpf Urine Mucus Occasional H (None) /hpf - Radiology Data Radiology results: report reviewed (Computed tomography scan of the abdomen pelvis reveals no acute process.) Disposition Clinical Impression: Abdominal pain Disposition: HOME SELF-CARE Condition: Stable Instructions: Abdominal Pain (ED) Additional Instructions: Please follow-up with primary care physician in the next couple days for recheck. Return for increased pain, fever, uncontrolled diarrhea, vomiting, worsening symptoms or other concerns. Prescriptions: Dicyclomine [Bentyl] 20 mg PO QID PRN #20 tablet PRN Reason: Pain Is patient prescribed a controlled substance at d/c from ED?: No Referrals: Marshall Beck MD [Primary Care Provider] - 1-2 days Time of Disposition: 17:33
[2018-06-15 16:10] LABS: Appearance,Urine Clear (Clear); Bacteria,Urine Rare /hpf; Bilirubin,Urine Negative (Negative); Blood,Urine Small (Negative); Color,Urine Yellow; Glucose,Urine (UA) Negative (Negative); Ketones,Urine Negative (Negative); Leukocyte Esterase,Urine Small (Negative); Mucus,Urine Occasional /hpf; Nitrite,Urine Negative (Negative); Protein,Urine Negative (Negative); RBC,Urine 2 /hpf (0-5); Specific Gravity,Urine 1.011 (1.001-1.035); Squamous Epithelial Cell,Urine 1 /hpf (0-4); Urobilinogen,Urine <2.0 mg/dL (<2.0); WBC,Urine 4 /hpf (0-5)
[2018-06-15 16:11] LABS: Basophils # (A) 0.1 k/uL (0-0.2); Basophils % (A) 1 %; Eosinophils # (A) 0.4 k/uL (0-0.7); Eosinophils % (A) 4 %; HCT 43.3 % (34.0-46.0); HGB 14.5 gm/dL (11.4-16.0); Lymphocytes # (A) 3.8 k/uL (1.0-4.8); Lymphocytes % (A) 34 %; MCH 28.7 pg (25.0-35.0); MCHC 33.5 g/dL (31.0-37.0); MCV 85.8 fL (80.0-100.0); Mean Platelet Volume 7.1; Monocytes # (A) 0.5 k/uL (0-1.0); Monocytes % (A) 4 %; Neutrophils # (A) 6.3 k/uL (1.3-7.7); Neutrophils % (A) 56 %; Platelet Count 315 k/uL (150-450); RBC 5.04 m/uL (3.80-5.40); RDW 14.5 % (11.5-15.5); WBC 11.3 k/uL (3.8-10.6)
[2018-06-15 16:16] LABS: Partial Thromboplastin Time 33.3 sec (22.0-30.0); Prothrombin Time 18.1 sec (9.0-12.0)
[2018-06-15 16:37] LABS: Albumin 4.5 g/dL (3.5-5.0); Calcium 9.7 mg/dL (8.4-10.2); Total Bilirubin 0.4 mg/dL (0.2-1.3); Total Protein 7.8 g/dL (6.3-8.2)
--- NOTE | 2018-06-15 17:13 | CT ---
EXAMINATION TYPE: CT abdomen pelvis w con DATE OF EXAM: 06/15/2018 COMPARISON: None HISTORY: Abdominal pain, diarrhea x3 days CT DLP: 715.2 mGycm Automated exposure control for dose reduction was used. TECHNIQUE: Helical acquisition of images was performed from the lung bases through the pelvis. CONTRAST: Performed without Oral Contrast and with IV Contrast, patient injected with 100 mL of Isovue 300. FINDINGS: Lung bases are clear. There is no pleural effusion. Heart size is normal. There is no pericardial eff usion. There are clips from cholecystectomy. Liver spleen pancreas appear normal. Bile ducts are not dilated. There is no adrenal mass. Kidneys show satisfactory contrast opacification. There is no hydr onephrosis. Ureters are not dilated. Abdominal aorta is atheromatous. There is minimal plaque in the abdominal aorta. There is no retroperitoneal adenopathy. Bladder distends smoothly. There is no ingui nal hernia. There is no free fluid in the pelvis. Lumbar spine is intact. Bony pelvis appears intact. Appendix is not definitely seen. There is no sign of appendicitis. I see no intestinal wall thickening. There are no dilated loops. There is no mesent zhao edema or adenopathy. IMPRESSION: ATHEROSCLEROTIC VASCULAR DISEASE. OTHERWISE NEGATIVE EXAM. I DO NOT SEE A CAUSE FOR ABDOMINAL PAIN.
[2018-06-15] MEDS ORDERED: Acetaminophen-Codeine 300-30mg TAB PO STA (17:29)
[2018-06-15 17:49] VITALS: BP 137/86; PULSE 89; RESP 18; TEMP 98.2
== END 2018-06-15 17:47 | disposition home or self-care (01) ==
LOC: EC 15:22
DX: R10.84 Generalized abdominal pain (principal); R11.0 Nausea; R63.0 Anorexia; J44.9 Chronic obstructive pulmonary disease, unspecified; F17.200 Nicotine dependence, unspecified, uncomplicated; Z79.51 Long term (current) use of inhaled steroids; Z79.899 Other long term (current) drug therapy; Z88.0 Allergy status to penicillin; Z86.711 Personal history of pulmonary embolism; Z85.51 Personal history of malignant neoplasm of bladder; Z90.49 Acquired absence of other specified parts of digestive tract; Z90.89 Acquired absence of other organs; Z90.710 Acquired absence of both cervix and uterus; Z53.29 Procedure and treatment not carried out because of patient's decision for other reasons
CPT/HCPCS: 99284 ×2; 96374 ×2; 96375 ×2; 96361 ×2; 96372 ×2; 36415; 80053; 82150; 83690; 85025; 85610; 85730; 81001; 74177; J0500; J2405; Q9967

== ENCOUNTER → 2019-01-10 | Outpatient (CLI) | payer BC ==
--- NOTE | 2019-01-11 09:13 | MM ---
Reason for exam: screening (asymptomatic). Last mammogram was performed 1 year and 1 month ago. History: Patient is postmenopausal, has history of other cancer at age 53, and has history of ovarian cancer at age 41. Family history of breast cancer in paternal aunt at age 50. Excisional biopsy of the left breast. 3 benign excisional biopsies of the left breast. Took estrogen for 6 months. Physical Findings: A clinical breast exam by your physician is recommended on an annual basis and results should be correlated with mammographic findings. MG 3D Screening Mammo W/Cad Bilateral CC and MLO view(s) were taken. Prior study comparison: December 14, 2017, bilateral MG screening mammo w CAD. October 10, 2014, mammogram, performed at [facility]. The breast tissue is heterogeneously dense. This may lower the sensitivity of mammography. Benign appearing bilateral calcifications. Previous mammotome biopsy in the left breast. No significant changes when compared with prior studies. ASSESSMENT: Benign, BI-RAD 2 RECOMMENDATION: Routine screening mammogram of both breasts in 1 year.
== END | disposition home or self-care (01) ==
LOC: RADMAMWWP 11:47
PROVIDERS: ATTEND Family Medicine
DX: Z12.31 Encounter for screening mammogram for malignant neoplasm of breast (principal)
CPT/HCPCS: 77063; 77067

== ENCOUNTER 2019-04-07 00:59 | Emergency (ER) | payer BC ==
[2019-04-07] MEDS ORDERED: SODIUM CHLORIDE 0.9% 1,000 ML IV STA (01:29)
[2019-04-07 01:48] LABS: Anisocytosis Slight; Basophils # (A) 0.1 k/uL (0-0.2); Basophils % (A) 1 %; Eosinophils # (A) 0.7 k/uL (0-0.7); Eosinophils % (A) 7 %; HCT 38.8 % (34.0-46.0); HGB 13.4 gm/dL (11.4-16.0); Lymphocytes # (A) 4.1 k/uL (1.0-4.8); Lymphocytes % (A) 39 %; MCH 29.5 pg (25.0-35.0); MCHC 34.5 g/dL (31.0-37.0); MCV 85.5 fL (80.0-100.0); Mean Platelet Volume 7.3; Monocytes # (A) 0.5 k/uL (0-1.0); Monocytes % (A) 5 %; Neutrophils # (A) 4.8 k/uL (1.3-7.7); Neutrophils % (A) 46 %; Platelet Count 404 k/uL (150-450); RBC 4.53 m/uL (3.80-5.40); RDW 16.8 % (11.5-15.5); WBC 10.5 k/uL (3.8-10.6)
[2019-04-07 01:52] LABS: Appearance,Urine Clear (Clear); Bilirubin,Urine Negative (Negative); Blood,Urine Trace (Negative); Color,Urine Yellow; Glucose,Urine (UA) Negative (Negative); Ketones,Urine Negative (Negative); Leukocyte Esterase,Urine Negative (Negative); Mucus,Urine Rare /hpf; Nitrite,Urine Negative (Negative); Protein,Urine Negative (Negative); RBC,Urine 1 /hpf (0-5); Specific Gravity,Urine 1.011 (1.001-1.035); Squamous Epithelial Cell,Urine 3 /hpf (0-4); Urobilinogen,Urine <2.0 mg/dL (<2.0); WBC,Urine 1 /hpf (0-5)
[2019-04-07 01:58] LABS: Albumin 4.2 g/dL (3.5-5.0); Calcium 9.6 mg/dL (8.4-10.2); Total Bilirubin 0.3 mg/dL (0.2-1.3)
--- NOTE | 2019-04-07 02:11 | CT ---
EXAMINATION TYPE: CT abdomen pelvis w con DATE OF EXAM: 04/07/2019 COMPARISON: 06/15/2018 HISTORY: Patient presents with abdominal pain. CT DLP: 1007 mGycm Automated exposure control for dose reduction was used. TECHNIQUE: Helical acquisition of images was performed from the lung bases through the pelvis. CONTRAST: Performed without Oral Contrast and with IV Contrast, patient injected with 100mL mL of Isovue 370. FINDINGS: CT scan of the abdomen pelvis. History abdominal pain and diarrhea. Comparison 06/15/2018. TECHNIQUE: Multiple axial sections were obtained from the diaphragm to the floor the pelvis with intravenous con trast. The contrast was Isovue 100 mL. FINDINGS: Lung bases are clear. There is no pleural effusion. There is mild hiatal hernia. Stomach is otherwise normal. There are clips from cholecystectomy. Liver shows no focal defect. Spleen appears normal. Th ere is no evidence of pancreatic mass. Pancreatic duct is not dilated. Bile ducts are not dilated. There is no adrenal mass. Kidneys show satisfactory contrast opacification. There is no hydronephrosi s. Delayed images show very little contrast in the renal collecting systems. Ureters are not dilated. Abdominal aorta is atheromatous. There is plaque formation in the lower abdominal aorta. There is 2. 8 cm lower abdominal aorta. Bladder distends smoothly. There is no free fluid in the pelvis. There is hysterectomy. There is no inguinal hernia. There is no mesenteric edema. There is no ascites or free air. There is no sign of a bowel obstructio n. Appendix is not seen. There is no sign of thickened appendix. Lumbar vertebra have normal alignment. There is no compression fracture. There is some spurring in th e lumbar spine. Bony pelvis is intact. There is 15% anterior wedging of T11 vertebra. IMPRESSION: NO EVIDENCE OF RENAL STONE OR OBSTRUCTION. DELAYED IMAGES SHOW DECREASED CONTRAST IN THE RENAL COLLEC TING SYSTEMS THAT COULD RELATE TO SOME DEGREE OF RENAL FAILURE. NO DILATED DUCTS. OLD MILD T11 COMPRESSION FRACTURE.
--- NOTE | 2019-04-07 02:15 | ED ---
General Adult HPI - General Chief complaint: Abdominal Pain Stated complaint: Abd Pain Time Seen by Provider: 04/07/19 01:07 Source: patient, family Mode of arrival: ambulatory - History of Present Illness Initial comments: 58-year-old female patient presents to the emergency department today for evaluation of right lower quadrant abdominal pain. Patient states this started this morning and has gradually worsened since. Patient states the pain is constant. She describes it as a burning type pain. Denies any radiation through to her back. Denies any fever, chills, constipation, or diarrhea with this. Reports nausea, denies vomiting. Last bowel movement was this morning and was soft and easy to pass. She denies any hematochezia or melena. She has had a previous cholecystectomy, appendectomy, total hysterectomy, and a recent stent placed to the left femoral artery. Patient denies any recent rash, shortness breath, chest pain, back pain, numbness, tingling, dizziness, weakness, hematuria, dysuria, urinary urgency, urinary frequency, headache, visual changes, or any other complaints. - Related Data Home Medications Medication Instructions Recorded Confirmed Albuterol Inhaler [Ventolin Hfa 1 - 2 puff INHALATION RT-QID PRN 06/15/18 06/15/18 Inhaler] Budesonide-Formot 160-4.5 Mcg 2 puff INHALATION RT-BID 06/15/18 06/15/18 [Symbicort 160-4.5 Mcg Inhaler] Loperamide HCl [Imodium A-D] 2 - 4 mg PO QID PRN 06/15/18 06/15/18 Tiotropium [place] [Spiriva] 1 cap INHALATION RT-DAILY 06/15/18 06/15/18 Previous Rx's Medication Instructions Recorded Dicyclomine [Bentyl] 20 mg PO QID PRN #20 tablet 06/15/18 Allergies Allergy/AdvReac Type Severity Reaction Status Date / Time Penicillins Allergy Rash/Hives/ Verified 04/07/19 01:06 Nausea Review of Systems ROS Statement: Those systems with pertinent positive or pertinent negative responses have been documented in the HPI. ROS Other: All systems not noted in ROS Statement are negative. Past Medical History Past Medical History: Cancer, COPD, Pulmonary Embolus (PE) Additional Past Medical History / Comment(s): bladder cancer- post surgical now History of Any Multi-Drug Resistant Organisms: None Reported Past Surgical History: Appendectomy, Bladder Surgery, Cholecystectomy, Hysterectomy Additional Past Surgical History / Comment(s): bladder surgery to remove cancer. cyst on breast removed,. sinus surgery, left femoral stent Past Anesthesia/Blood Transfusion Reactions: No Reported Reaction Past Psychological History: No Psychological Hx Reported Smoking Status: Current every day smoker Past Alcohol Use History: None Reported Past Drug Use History: None Reported - Past Family History Mother Additional Family Medical History / Comment(s): liver cirrhosis Father Family Medical History: Myocardial Infarction ([place]) General Exam General appearance: alert, in no apparent distress, other (Physical well- developed, well-nourished adult female patient in no acute distress. Vital signs upon presentation are temperature 97.9F, pulse 87, respirations 20, blood pressure 146/86, pulse ox 99% on room air.) ENT exam: Present: normal exam, normal oropharynx, mucous membranes moist Respiratory exam: Present: normal lung sounds bilaterally. Absent: respiratory distress, wheezes, rales, rhonchi, stridor Cardiovascular Exam: Present: regular rate, normal rhythm, normal heart sounds. Absent: systolic murmur, diastolic murmur, rubs, gallop, clicks GI/Abdominal exam: Present: soft, tenderness (Right lower quadrant and mclean prapubic tenderness), normal bowel sounds. Absent: distended, guarding, rebound, rigid Neurological exam: Present: alert, oriented X3, CN II-XII intact Psychiatric exam: Present: normal affect, normal mood Skin exam: Present: warm, dry, intact, normal color. Absent: rash Course Vital Signs 04/07/19 04/07/19 01:02 02:18 Temperature 97.9 F 98 F Pulse Rate 87 77 Respiratory 20 18 Rate Blood Pressure 146/86 108/68 O2 Sat by Pulse 99 99 Oximetry Medical Decision Making - Medical Decision Making 58-year-old female patient presented to the emergency department today for evaluation of abdominal pain and nausea. Physical examination did reveal suprapubic and right lower quadrant tenderness. Labs reviewed and were unremarkable. Urinalysis negative. CT abdomen and pelvis was obtained and showed no acute abdomen ALLERGIES. Discuss findings and results with the patient. She will be discharged TO primary care physician for recheck in 1-2 days. Return parameters were discussed in detail. She verbalizes understanding and agrees with this plan. - Lab Data Result diagrams: 04/07/19 01:41 04/07/19 01:41 Lab Results 04/07/19 04/07/19 04/07/19 Range/Units 01:41 01:41 01:41 WBC 10.5 (3.8-10.6) k/uL RBC 4.53 (3.80-5.40) m/uL Hgb 13.4 (11.4-16.0) gm/dL Hct 38.8 (34.0-46.0) % MCV 85.5 (80.0-100.0) fL MCH 29.5 (25.0-35.0) pg MCHC 34.5 (31.0-37.0) g/dL RDW 16.8 H (11.5-15.5) % Plt Count 404 (150-450) k/uL Neutrophils % 46 % Lymphocytes % 39 % Monocytes % 5 % Eosinophils % 7 % Basophils % 1 % Neutrophils # 4.8 (1.3-7.7) k/uL Lymphocytes # 4.1 (1.0-4.8) k/uL Monocytes # 0.5 (0-1.0) k/uL Eosinophils # 0.7 (0-0.7) k/uL Basophils # 0.1 (0-0.2) k/uL Anisocytosis Slight Sodium 140 (137-145) mmol/L Potassium 4.0 (3.5-5.1) mmol/L Chloride 108 H (98-107) mmol/L Carbon Dioxide 21 L (22-30) mmol/L Anion Gap 11 mmol/L BUN 12 (7-17) mg/dL Creatinine 0.91 (0.52-1.04) mg/dL Est GFR (CKD-EPI)AfAm 81 (>60 ml/min/1.73 sqM) Est GFR (CKD-EPI)NonAf 70 (>60 ml/min/1.73 sqM) Glucose 99 (74-99) mg/dL Calcium 9.6 (8.4-10.2) mg/dL Total Bilirubin 0.3 (0.2-1.3) mg/dL AST 27 (14-36) U/L ALT 32 (9-52) U/L Alkaline Phosphatase 99 (38-126) U/L Total Protein 7.0 (6.3-8.2) g/dL Albumin 4.2 (3.5-5.0) g/dL Amylase 42 (30-110) U/L Lipase 62 (23-300) U/L Urine Color Yellow Urine Appearance Clear (Clear) Urine pH 5.0 (5.0-8.0) Ur Specific [place] 1.011 (1.001-1.035) Urine Protein Negative (Negative) Urine Glucose (UA) Negative (Negative) Urine Ketones Negative (Negative) Urine Blood Trace H (Negative) Urine Nitrite Negative (Negative) Urine Bilirubin Negative (Negative) Urine Urobilinogen <2.0 (<2.0) mg/dL Ur Leukocyte Esterase Negative (Negative) Urine RBC 1 (0-5) /hpf Urine WBC 1 (0-5) /hpf Ur Squamous Epith Cells 3 (0-4) /hpf Urine Mucus Rare H (None) /hpf - Radiology Data Radiology results: report reviewed, image reviewed CT abdomen and pelvis is obtained. Report was reviewed in its entirety. Impression by Dr. Brown shows no evidence of renal stone or obstruction. Delayed images show decreased contrast in the renal collecting systems a could relate to some degree of renal failure. No dilated ducts. Mild T11 compression fracture. Disposition Clinical Impression: Abdominal pain Disposition: HOME SELF-CARE Condition: Good Instructions (If sedation given, give patient instructions): Abdominal Pain (ED) Additional Instructions: Rest. Increase fluids. Follow up with your primary care physician for recheck in 1-2 days. Return to the emergency department for any new, worsening, or concerning symptoms. Is patient prescribed a controlled substance at d/c from ED?: No Referrals: Edmundo Lobato MD [Primary Care Provider] - 1-2 days Time of Disposition: 02:18
[2019-04-07] MEDS ORDERED: ONDANSETRON 4 MG ODT STARTER PACK 2 TAB BTL PO STA (02:18)
[2019-04-07 02:20] VITALS: BP 108/68; RESP 18; TEMP 98
[2019-04-07] MEDS ORDERED: KETOROLAC 30 MG/ML 1 ML VIAL IVP STA (02:24)
[2019-04-07 02:35] VITALS: PULSE 78
== END 2019-04-07 02:33 | disposition home or self-care (01) ==
LOC: EC 00:59
DX: R10.31 Right lower quadrant pain (principal); R11.0 Nausea; J44.9 Chronic obstructive pulmonary disease, unspecified; F17.200 Nicotine dependence, unspecified, uncomplicated; Z85.51 Personal history of malignant neoplasm of bladder; Z90.49 Acquired absence of other specified parts of digestive tract; Z90.710 Acquired absence of both cervix and uterus; Z79.51 Long term (current) use of inhaled steroids; Z79.899 Other long term (current) drug therapy; Z88.0 Allergy status to penicillin
CPT/HCPCS: 36415; 80053; 82150; 83690; 85025; 81001; 74177; 99284; 96374; 96361; J1885; S0119; Q9967

== ENCOUNTER → 2019-08-25 | Outpatient (CLI) | payer BC ==
[2019-08-25 08:47] LABS: HGB 14.1 gm/dL (11.4-16.0); MCH 29.1 pg (25.0-35.0); MCHC 32.9 g/dL (31.0-37.0); MCV 88.5 fL (80.0-100.0); Mean Platelet Volume 7.6; Platelet Count 332 k/uL (150-450); RBC 4.85 m/uL (3.80-5.40); RDW 14.5 % (11.5-15.5); WBC 9.4 k/uL (3.8-10.6)
[2019-08-25 08:58] LABS: Potassium 4.7 mmol/L (3.5-5.1)
== END | disposition home or self-care (01) ==
LOC: LABPAT 08:25
PROVIDERS: ATTEND Internal Medicine Interventional Cardiology
DX: Z01.812 Encounter for preprocedural laboratory examination (principal); I73.9 Peripheral vascular disease, unspecified
CPT/HCPCS: 36415; 80051; 82565; 84520; 85027

== ENCOUNTER 2019-08-26 07:16 | Day surgery (SDC) | payer BC ==
[2019-08-25 13:13] VITALS: BMI 29.4
[~2019-08-26 07:16] MED LIST: ALPRAZolam 0.25 MG TAB PO PRN; ASPIRIN 325 MG TAB PO STA; SODIUM CHLORIDE 0.9% 1,000 ML in EMPTY BAG 1 BAG IV ONE
[2019-08-26 07:44] VITALS: RESP 18; TEMP 98.4
[2019-08-26] MEDS ORDERED: MIDAZOLAM 2 MG/2 ML VIAL IVP ONE (08:43)
[2019-08-26] MEDS ORDERED: LIDOCAINE 1% INJ 10MG/ML (20 ML MDV) SQ ONE (08:47)
[2019-08-26] MEDS ORDERED: IOPAMIDOL-250 100ML BTL INTRAARTER ONE (08:58)
[2019-08-26] MEDS ORDERED: SODIUM CHLORIDE 0.9% 1,000 ML IV SCH (09:15)
--- NOTE | 2019-08-26 09:50 | LTR ---
August 26, 2019 Re: Daisy Delia Dear Dr. Lobato: Ms. Daisy Lin underwent today an abdominal aortogram and bilateral lower extremities runoff for symptoms of left leg intermittent claudication. The study revealed occlusion of her left iliac artery in a stented segment. The patient will be scheduled to undergo a AUDIO/VISUAL MANAGER of the left iliac in the next few weeks. Thank you for allowing me to participate in her care and please do not hesitate to call if you have any question or concern. Sincerely, MD DIRK Calderon / KEEGAN: [id number] /
--- NOTE | 2019-08-26 09:56 | AN ---
ANGIOGRAPHY REPORT DATE OF SERVICE: August 26, 2019 PERFORMING PHYSICIAN: Isael Drew MD. PROCEDURE PERFORMED: 1. An abdominal aortogram. 2. Bilateral lower extremities runoff. INDICATION: This is a 58-year-old female patient who sees Dr. Morales in the office as an outpatient who is known to have peripheral arterial disease and underwent stenting of the left iliac artery at [facility] about 6 months ago, started experiencing left leg intermittent claudication. The claudication is severe enough and interfering with her daily activities. Because of that, she was scheduled to undergo an abdominal aortogram and bilateral lower extremities runoff. APPROACH: Right common femoral artery. COMPLICATION: None. LEVEL OF SEDATION: Moderate with sedation length of 13 minutes. PROCEDURE DESCRIPTION: After obtaining informed consent, the patient was brought to the cardiac lab courier. The right common femoral artery was cannulated using micropuncture technique. Then I placed a 5-[place] sheath in the right common femoral artery. After that I did an abdominal aortogram and bilateral lower extremities runoff using 5-[place] pigtail catheter which was initially placed at the level of the renal arteries then it was pulled into above the bifurcation of the aorta into right and left common iliac arteries. The procedure was completed without any complication. SELECTIVE PERIPHERAL ANGIOGRAM: 1. The aorta appeared to be slightly aneurysmal distally. No occlusive disease seen. 2. Common Iliac Arteries: The right common iliac artery appeared to be angiographically normal and the left common iliac artery appeared to be closed, which seems to be in-stent occlusion. 3. Internal Iliac Arteries: The right and left internal iliac arteries appeared to be angiographically normal. 4. External Iliac Arteries: The right and left externals appeared to be angiographically normal. 5. Common Femoral Arteries: The right and left common femoral arteries appeared to be angiographically normal. 6. Profunda: Both profunda are patent. 7. SFA: The right SFA has eccentric lesion appeared to be in the range of 50%. The left SFA is patent. 8. Popliteal: Both popliteal are patent. 9. Below the knee: There are 3-vessel runoff below the knee bilaterally. CONCLUSION: 1. Severe aortoiliac disease with occluded left common iliac artery in a stented segment. 2. Intermediate disease involving the right SFA. POSTPROCEDURE MANAGEMENT: 1. The patient will be scheduled to undergo a ENGINEERING TEAM SUPERVISOR of the left iliac. 2. I would also do intravascular ultrasound at the same time to rule out any thrombus. 3. Follow up with the patient. DIRK / HEATHN: [id number] /
--- NOTE | 2019-08-26 10:59 | IR ---
Fluoroscopy HISTORY: Report from vascular disease 1.8 minutes fluoroscopy time supplied to the referring clinician. 161 intraoperative C-arm images do cument the procedure. See dictated report from cardiology.
[2019-08-26 13:34] VITALS: BP 113/56; PULSE 78
== END 2019-08-26 14:45 | disposition home or self-care (01) ==
LOC: CATHCVL 07:16
PROVIDERS: ATTEND Internal Medicine Interventional Cardiology
DX: I73.9 Peripheral vascular disease, unspecified (principal); T82.898A Other specified complication of vascular prosthetic devices, implants and grafts, initial encounter; E78.5 Hyperlipidemia, unspecified; F17.210 Nicotine dependence, cigarettes, uncomplicated; Z95.820 Peripheral vascular angioplasty status with implants and grafts; Z79.899 Other long term (current) drug therapy; Z79.82 Long term (current) use of aspirin; Z88.0 Allergy status to penicillin; Z90.710 Acquired absence of both cervix and uterus; Z90.49 Acquired absence of other specified parts of digestive tract; Z82.49 Family history of ischemic heart disease and other diseases of the circulatory system
CPT/HCPCS: 36200; 75625; 75716; C1769 ×4; C1894; J2250; J2001; Q9966

== ENCOUNTER 2019-09-21 13:25 | Day surgery (SDC) | payer BC ==
[2019-09-16 16:14] VITALS: BMI 29.4
[2019-09-21] MEDS ORDERED: SODIUM CHLORIDE 0.9% 1,000 ML IV ONE (14:21)
[2019-09-21] MEDS: MIDAZOLAM 2 MG/2 ML VIAL IV ONE ×2 (15:40→16:25)
[2019-09-21] MEDS ORDERED: HYDROmorphone 1 MG/ML 1 ML SYRINGE IVP ONE (15:40)
[2019-09-21] MEDS ORDERED: LIDOCAINE 1% INJ 10MG/ML (20 ML MDV) SQ ONE (15:42)
[2019-09-21] MEDS ORDERED: IPRATROPIUM 0.5 MG/2.5 ML NEBU INHALATION PRN (16:44)
[2019-09-21] MEDS ORDERED: SODIUM CHLORIDE 0.9% 1,000 ML in EMPTY BAG 1 BAG IV SCH (16:45)
[2019-09-21] MEDS ORDERED: IOPAMIDOL-300 100ML BTL INJ ONE (16:46)
[2019-09-21] MEDS ORDERED: CLOPIDOGREL 75 MG TAB PO ONE (16:46)
[2019-09-21] MEDS ORDERED: MAG HYDROX/AL HYDROX/SIMETH 30 ML CUP PO ONE (16:47)
[2019-09-21] MEDS ORDERED: ONDANSETRON 4 MG/2 ML VIAL IVP PRN (17:16)
[2019-09-21] MEDS ORDERED: ATROPINE SULFATE 0.1 MG/ML 10ML SYRINGE ONE (19:41)
[2019-09-21] MEDS ORDERED: ZOLPIDEM 5 MG TAB PO PRN (21:00)
[2019-09-21] MEDS: SYMBICORT 160-4.5 MCG INHALER INHALATION SCH ×2 (21:03→21:39)
[2019-09-21] MEDS ORDERED: MAG HYDROX/AL HYDROX/SIMETH 30 ML CUP PO PRN (21:17)
--- NOTE | 2019-09-21 22:21 | LTR ---
DATE OF SERVICE: September 21, 2019. Dear Dr. Lobato: Ms. Daisy Lin underwent successful percutaneous peripheral intervention of the right and left iliac arteries with an excellent angiographic results and without any complication. Thank you for allowing us to participate in her care and please do not hesitate to call for any questions or concerns. Sincerely, MD DIRK Calderon / HEATHN: [id number] /
[2019-09-22] MEDS ORDERED: ACETAMINOPHEN TAB 325 MG TAB PO PRN (05:07)
[2019-09-22 05:14] VITALS: TEMP 98.2
--- NOTE | 2019-09-22 05:24 | AN ---
ANGIOGRAPHY REPORT PERCUTANEOUS PERIPHERAL INTERVENTION DATE OF SERVICE: September 20, 2028 PERFORMING PHYSICIAN: Isael Drew MD. PROCEDURE PERFORMED: 1. Selective bilateral common iliac arteries angiogram. 2. Successful stenting of the right and left common iliac arteries using 8 x 39 mm stent with a kissing technique with excellent angiographic results. INDICATION: This is a 58-year-old female patient with history of peripheral arterial disease who underwent stenting of the left iliac artery at [facility] was experiencing left leg intermittent claudication. She was seen by Dr. Morales who felt that her symptoms are related to probably occluded stent. She underwent an angiogram which revealed occluded left iliac artery. She was brought today to undergo an intervention. APPROACH: Right and left femoral arteries. COMPLICATION: None. LEVEL OF SEDATION: Moderate with sedation length of 53 minutes. PROCEDURE DESCRIPTION: After obtaining an informed consent, the patient was brought to the cardiac laborer beam house. The right and left common femoral arteries were cannulated using micropuncture technique, the micropuncture wire passed easily then I placed on the left side a 7- Khmer x 23 cm Brite tip on the left side and on the right side 6 x 23 cm Brite tip sheath. I did after that anticoagulation using heparin with continuous ACT monitoring throughout the procedure. Subsequently, I did bilateral iliac artery angiogram. After that, I did cross the chronic total occlusion of the left iliac artery using 0.035 stiff Glidewire. I did inject contrast in the aorta to prove that I was in the true lumen. After that, I did balloon angioplasty of the left iliac, which using 6 mm balloon. Intravascular ultrasound, IVUS, was applied and showed large clot burden and because of that I decided to use covered stent. I stented bilateral iliac arteries using 2 stents in a kissing technique. On the right side, I deployed 8 x 39 mm and on the left side 8 x 39 mm as well. The one on the right side was Omnilink and the one on the left side was iCAST. Both stents were deployed under 12 atmospheres. The final angiogram showed great angiographic results and the procedure was completed without any complication. After that, I switched my 23 cm into 11 cm sheath. The procedure was completed without any complication. POSTPROCEDURE MANAGEMENT: 1. Dual antiplatelet therapy. 2. Risk factor modifications. 3. Follow up with the patient. MMODL / IJN: [id number] /
[2019-09-22 08:09] VITALS: BP 123/65; PULSE 84; RESP 16
[2019-09-22 08:17] LABS: Basophils # (A) 0.1 k/uL (0-0.2); Basophils % (A) 1 %; Eosinophils # (A) 0.1 k/uL (0-0.7); Eosinophils % (A) 1 %; HCT 38.4 % (34.0-46.0); HGB 12.9 gm/dL (11.4-16.0); Lymphocytes # (A) 2.2 k/uL (1.0-4.8); Lymphocytes % (A) 19 %; MCH 29.3 pg (25.0-35.0); MCHC 33.6 g/dL (31.0-37.0); MCV 87.1 fL (80.0-100.0); Mean Platelet Volume 8.3; Monocytes # (A) 0.7 k/uL (0-1.0); Monocytes % (A) 6 %; Neutrophils # (A) 8.7 k/uL (1.3-7.7); Neutrophils % (A) 72 %; Platelet Count 283 k/uL (150-450); RBC 4.41 m/uL (3.80-5.40); RDW 14.3 % (11.5-15.5)
--- NOTE | 2019-09-22 08:29 | DS ---
DISCHARGE SUMMARY DATE OF ADMISSION: September 21, 2019 DATE OF DISCHARGE: September 22, 2019 BRIEF HISTORY: This is a very pleasant 58-year-old female patient who underwent yesterday successful crossing chronic total occlusion of the left iliac along with successful kissing stents of the right and left iliac artery. The patient was seen today. Both groins are soft and nontender and without any bruises. The patient is going to be discharged home and follow up with Dr. Morales. DIRK / KEEGAN: [id number] /
[2019-09-22 08:33] LABS: African American GFR (CKD) >90 (>60 ml/min/1.73 sqM); Anion Gap 9 mmol/L; Blood Urea Nitrogen 14 mg/dL (7-17); Calcium 9.1 mg/dL (8.4-10.2); Carbon Dioxide 20 mmol/L (22-30); Chloride 109 mmol/L (98-107); Glucose 91 mg/dL (74-99); Non-African American GFR(CKD) >90 (>60 ml/min/1.73 sqM); Potassium 4.2 mmol/L (3.5-5.1); Sodium 138 mmol/L (137-145)
[2019-09-22] MEDS ORDERED: CLOPIDOGREL 75 MG TAB PO SCH (09:00)
[2019-09-22] MEDS ORDERED: ASPIRIN 81 MG PO SCH (09:00)
[2019-09-22] MEDS ORDERED: METOPROLOL SUCCINATE (ER) 25 MG TAB.ER.24H PO SCH (09:00)
[2019-09-22] MEDS ORDERED: ATORVASTATIN 80 MG TAB PO SCH (09:00)
[2019-09-22] MEDS: SYMBICORT 160-4.5 MCG INHALER INHALATION SCH (09:40)
--- NOTE | 2019-09-22 10:01 | IR ---
EXAMINATION TYPE: IR stent intravas non coronary DATE OF EXAM: 09/21/2019 COMPARISON: NONE HISTORY: Fluoroscopy time. Fluoroscopy was provided to the referring clinician.
== END 2019-09-22 09:36 | disposition home or self-care (01) ==
LOC: CATHCVL 13:25 → 3SCARD 16:33 → CATHCVL 09-22 09:36
PROVIDERS: ATTEND Internal Medicine Interventional Cardiology
DX: I70.212 Atherosclerosis of native arteries of extremities with intermittent claudication, left leg (principal); I70.92 Chronic total occlusion of artery of the extremities; Z72.0 Tobacco use; E78.5 Hyperlipidemia, unspecified; Z82.49 Family history of ischemic heart disease and other diseases of the circulatory system; Z88.0 Allergy status to penicillin; Z79.02 Long term (current) use of antithrombotics/antiplatelets; Z79.82 Long term (current) use of aspirin; Z79.899 Other long term (current) drug therapy
CPT/HCPCS: 37221; 85347; 37252; 80048; 85025; C1894 ×3; C1769 ×6; C1725; C1874; C1876; C1887; C1753; J2250; J2405; J2001; J1170; J1644; Q9967; 92978

== ENCOUNTER → 2020-03-15 | Outpatient (CLI) | payer BC ==
--- NOTE | 2020-03-15 09:54 | FL ---
EXAMINATION: Cervical and Thoracic Esophagram DATE OF EXAM: 03/15/2020 CLINICAL INDICATION: 59-year-old female K21.9, GERD. Patient reports progressive worsening. COMPARISON: None Total Fluoroscopy Time: 2 minutes 0 seconds. Total images: 36 FINDINGS: The swallowing mechanism is normal and hypopharyngeal anatomy is preserved. The cervical and thoracic portions have a normal course and caliber and normal motility. The mucosa is normal and no persistent filling defect is encountered. There is a moderate size sliding hiatal hernia. Gastroesophageal reflux could not be elicited during the course of the exam with Valsalva or positional maneuvers. This does not exclude its possibility. IMPRESSION: 1. Sliding moderate-sized hiatal hernia. 2. Otherwise, unremarkable esophagram examination.
== END | disposition home or self-care (01) ==
LOC: RADUSWWP 07:42
PROVIDERS: ATTEND Surgery Plastic and Reconstructive Surgery
DX: K44.9 Diaphragmatic hernia without obstruction or gangrene (principal); K21.9 Gastro-esophageal reflux disease without esophagitis; Z88.0 Allergy status to penicillin; Z88.8 Allergy status to other drugs, medicaments and biological substances
CPT/HCPCS: 74220

== ENCOUNTER 2020-04-04 07:51 | Day surgery (SDC) | payer BC ==
[2020-04-03 07:59] VITALS: BMI 29.2
--- NOTE | 2020-04-04 06:30 | P.GSHP ---
History of Present Illness H&P Date: 04/04/20 CHIEF COMPLAINT: GERD HISTORY OF PRESENT ILLNESS: The patient is a 59-year-old female who presents reports gastroesophageal reflux disease. Upper endoscopy was offered for further evaluation and management. PAST MEDICAL HISTORY: Please see list. PAST SURGICAL HISTORY: Please see list. MEDICATIONS: Please see list. ALLERGIES: Please see list. SOCIAL HISTORY: No illicit drug use FAMILY HISTORY: No reports of Crohn disease or ulcerative colitis. REVIEW OF ORGAN SYSTEMS: CONSTITUTIONAL: No reports of fevers or chills. GI: Denies any blood in stools or constipation. PHYSICAL EXAM: VITAL SIGNS: Stable GENERAL: Well-developed and pleasant in no acute distress. HEENT: No scleral icterus. Extraocular movements grossly intact. Moist buccal mucosa. NECK: Supple without lymphadenopathy. CHEST: Unlabored respirations. Equal bilateral excursions. CARDIOVASCULAR: Regular rate and rhythm. Distal 2+ pulses. ABDOMEN: Soft, nondistended. MUSCULOSKELETAL: No clubbing, cyanosis, or edema. ASSESSMENT: 1. Gastroesophageal reflux disease PLAN: 1. Recommend proceeding with an upper endoscopy Past Medical History Past Medical History: Cancer, COPD, GERD/Reflux, Hyperlipidemia, Hypertension, Myocardial Infarction ([place]), Osteoarthritis (OA), Pulmonary Embolus (PE), Vascular Disorder Additional Past Medical History / Comment(s): Hx Bladder cancer- PE 2014. EMPHYSEMA, HYPOGLYCEMIA Last Myocardial Infarction Date:: UNKNOWN DATE- PER STRESS TEST History of Any Multi-Drug Resistant Organisms: None Reported Past Surgical History: Appendectomy, Bladder Surgery, Breast Surgery, Cholecystectomy, Hysterectomy Additional Past Surgical History / Comment(s): bladder surgery to remove cancer. Angiography. cysts on lt breast removed, sinus surgery, left femoral stent 05/2019, LEFT LEG-2 STENTS Past Anesthesia/Blood Transfusion Reactions: No Reported Reaction Smoking Status: Former smoker - Past Family History Mother Family Medical History: Liver Disease Additional Family Medical History / Comment(s): liver cirrhosis Father Family Medical History: Myocardial Infarction ([place]) Brother(s) Family Medical History: Cancer Additional Family Medical History / Comment(s): LUNG AND BRAIN CANCER Medications and Allergies Home Medications Medication Instructions Recorded Confirmed Type Aspirin 81 mg PO DAILY 08/25/19 04/02/20 History Clopidogrel [Plavix] 75 mg PO DAILY 08/25/19 04/02/20 History Metoprolol Succinate [Toprol XL] 25 mg PO DAILY 08/25/19 04/02/20 History Rosuvastatin Calcium [Crestor] 40 mg PO HS 08/25/19 04/02/20 History Allergies Allergy/AdvReac Type Severity Reaction Status Date / Time atorvastatin Allergy SEVERE Verified 04/02/20 13:48 HEARTBURN Penicillins Allergy Rash/Hives/ Verified 04/02/20 13:48 Nausea
[~2020-04-04 07:51] MED LIST changes: -ALPRAZolam 0.25 MG TAB PO PRN; -ASPIRIN 325 MG TAB PO STA; +LACTATED RINGERS 1,000 ML IV SCH; +MIDAZOLAM 2 MG/2 ML VIAL IV PRN; -SODIUM CHLORIDE 0.9% 1,000 ML in EMPTY BAG 1 BAG IV ONE; +fentaNYL (PF) 50 MCG/ML 2 ML AMP IV PRN; +fentaNYL (PF) 50 MCG/ML 2 ML AMP IVP PRN
[2020-04-04] MEDS ORDERED: LIDOCAINE 1% (10MG/ML) FOR IV START INTRADERMA ONE (08:20)
[2020-04-04 08:21] LABS: Glucose,Whole Blood 100 mg/dL (75-99)
[2020-04-04] MEDS ORDERED: PROPOFOL 10 MG/ML 20 ML VIAL IV ONE (08:24)
[2020-04-04] MEDS ORDERED: LIDOCAINE 1% INJ 10MG/ML (20 ML MDV) ONE (08:24)
[2020-04-04 08:25] VITALS: RESP 18; TEMP 96.9
--- NOTE | 2020-04-04 08:35 | P.OP ---
Date of Procedure: 04/04/20 Description of Procedure: PREOPERATIVE DIAGNOSIS: Gastroesophageal reflux disease. Epigastric abdominal pain Dysphagia POSTOPERATIVE DIAGNOSIS: Gastroesophageal reflux disease. Epigastric abdominal pain Dysphagia Gastritis Diaphragmatic hiatal hernia OPERATION: Esophagogastroduodenoscopy with biopsies along antrum. SURGEON: Cheryl Jacob MD ANESTHESIA: MAC. INDICATIONS: The patient is a 59-year-old female who presents with a history of reflux disease. Benefits and risks of the procedure were described. Informed consent was obtained. DESCRIPTION: The patient was brought into the endoscopy suite and laid in the left lateral decubitus position. An Olympus gastroscope was passed along the posterior oropharynx down to the distal esophagus where the squamocolumnar junction was encountered at 35 cm from the incisors. The stomach was entered and no bile reflux was found. Additional findings are listed below. Biopsies with cold forceps were obtained of the antrum. The first through third portion of the duodenum was examined and unremarkable. Retroflexion of the scope confirmed Hill grade 4 lower esophageal valve. The squamocolumnar junction demonstrated LA grade B erosive esophagitis. The stomach was desufflated. The patient tolerated the procedure well. FINDINGS: Squamocolumnar junction 35 cm from the incisors. Diaphragmatic hiatus at 38 cm. Hiatal hernia, 3 cm Hill grade 4 lower esophageal valve. LA grade B erosive esophagitis. No active duodenitis. Chronic gastritis RECOMMENDATIONS: Upper endoscopy as needed. Plan - Discharge Summary Discharge Rx Participant: No New Discharge Prescriptions: Continue Rosuvastatin Calcium [Crestor] 40 mg PO HS Metoprolol Succinate [Toprol XL] 25 mg PO DAILY Clopidogrel [Plavix] 75 mg PO DAILY Aspirin 81 mg PO DAILY Discharge Medication List Aspirin 81 mg PO DAILY 08/25/19 [History] Clopidogrel [Plavix] 75 mg PO DAILY 08/25/19 [History] Metoprolol Succinate [Toprol XL] 25 mg PO DAILY 08/25/19 [History] Rosuvastatin Calcium [Crestor] 40 mg PO HS 08/25/19 [History] Follow up Appointment(s)/Referral(s): Cheryl Jacob MD [STAFF PHYSICIAN] - 05/01/20 Patient Instructions/Handouts: Hiatal Hernia (DC), Gastroesophageal Reflux Disease (DC) Activity/Diet/Wound Care/Special Instructions: Start PLAVIX and ASPIRIN 04/08/2020 Discharge Disposition: HOME SELF-CARE
[2020-04-04 09:02] VITALS: BP 118/74; PULSE 70
== END 2020-04-04 09:40 | disposition home or self-care (01) ==
LOC: ORWHC2ENDO 07:51
PROVIDERS: ATTEND Surgery Plastic and Reconstructive Surgery
DX: K29.50 Unspecified chronic gastritis without bleeding (principal); K44.9 Diaphragmatic hernia without obstruction or gangrene; K21.0 Gastro-esophageal reflux disease with esophagitis; K22.10 Ulcer of esophagus without bleeding; I10 Essential (primary) hypertension; I25.2 Old myocardial infarction; I25.10 Atherosclerotic heart disease of native coronary artery without angina pectoris; E78.5 Hyperlipidemia, unspecified; I73.9 Peripheral vascular disease, unspecified; J44.9 Chronic obstructive pulmonary disease, unspecified; Z86.711 Personal history of pulmonary embolism; Z79.82 Long term (current) use of aspirin; Z79.02 Long term (current) use of antithrombotics/antiplatelets; Z79.899 Other long term (current) drug therapy; Z88.0 Allergy status to penicillin; Z88.8 Allergy status to other drugs, medicaments and biological substances; Z90.49 Acquired absence of other specified parts of digestive tract; Z90.710 Acquired absence of both cervix and uterus; Z98.890 Other specified postprocedural states; Z95.820 Peripheral vascular angioplasty status with implants and grafts; Z85.51 Personal history of malignant neoplasm of bladder; Z87.891 Personal history of nicotine dependence; Z82.49 Family history of ischemic heart disease and other diseases of the circulatory system; Z80.0 Family history of malignant neoplasm of digestive organs; Z80.8 Family history of malignant neoplasm of other organs or systems
CPT/HCPCS: 88305; 43239; J2001; J2704

== ENCOUNTER 2020-08-31 18:29 | Emergency (ER) | payer BC ==
[2020-08-31 18:34] VITALS: TEMP 98.6
[2020-08-31 19:13] LABS: Basophils # (A) 0.1 k/uL (0-0.2); Basophils % (A) 1 %; Eosinophils # (A) 0.4 k/uL (0-0.7); Eosinophils % (A) 3 %; HCT 41.8 % (34.0-46.0); HGB 14.1 gm/dL (11.4-16.0); Lymphocytes # (A) 3.8 k/uL (1.0-4.8); Lymphocytes % (A) 33 %; MCH 28.7 pg (25.0-35.0); MCHC 33.6 g/dL (31.0-37.0); MCV 85.5 fL (80.0-100.0); Mean Platelet Volume 7.3; Monocytes # (A) 0.6 k/uL (0-1.0); Monocytes % (A) 5 %; Neutrophils # (A) 6.6 k/uL (1.3-7.7); Neutrophils % (A) 57 %; Platelet Count 368 k/uL (150-450); RBC 4.89 m/uL (3.80-5.40); RDW 15.1 % (11.5-15.5); WBC 11.5 k/uL (3.8-10.6)
[2020-08-31 19:15] LABS: Appearance,Urine Clear (Clear); Bilirubin,Urine Negative (Negative); Blood,Urine Negative (Negative); Color,Urine Yellow; Glucose,Urine (UA) Negative (Negative); Ketones,Urine Negative (Negative); Leukocyte Esterase,Urine Negative (Negative); Nitrite,Urine Negative (Negative); Protein,Urine Negative (Negative); Specific Gravity,Urine 1.008 (1.001-1.035); Urobilinogen,Urine <2.0 mg/dL (<2.0)
[2020-08-31 19:21] LABS: Albumin 4.5 g/dL (3.5-5.0); Calcium 10.2 mg/dL (8.4-10.2); Potassium 3.9 mmol/L (3.5-5.1); Total Bilirubin 0.6 mg/dL (0.2-1.3); Total Protein 7.6 g/dL (6.3-8.2)
[2020-08-31 19:38] LABS: INR 0.9 (<1.2); Partial Thromboplastin Time 22.9 sec (22.0-30.0); Prothrombin Time 9.9 sec (9.0-12.0)
--- NOTE | 2020-08-31 19:39 | ED ---
General Adult HPI - General Chief complaint: Back Pain/Injury Stated complaint: Flank pain Time Seen by Provider: 08/31/20 18:51 Source: patient, RN notes reviewed, old records reviewed Mode of arrival: ambulatory Limitations: no limitations - History of Present Illness Initial comments: 59-year-old female presenting for evaluation of flank pain and abdominal pain. Patient was sent in by primary care physician to evaluate abnormal x-ray findings including concern for kidney stone and concern for aneurysm. She states she's had ongoing issues for some time. She does report hematuria. She reports some nausea without significant vomiting. No fevers. No chest pain. - Related Data Home Medications Medication Instructions Recorded Confirmed Aspirin 81 mg PO DAILY 08/25/19 04/04/20 Clopidogrel [Plavix] 75 mg PO DAILY 08/25/19 04/04/20 Metoprolol Succinate [Toprol XL] 25 mg PO DAILY 08/25/19 04/04/20 Rosuvastatin Calcium [Crestor] 40 mg PO HS 08/25/19 04/04/20 Allergies Allergy/AdvReac Type Severity Reaction Status Date / Time atorvastatin Allergy SEVERE Verified 08/31/20 18:34 HEARTBURN Penicillins Allergy Rash/Hives/ Verified 08/31/20 18:34 Nausea Review of Systems ROS Statement: Those systems with pertinent positive or pertinent negative responses have been documented in the HPI. ROS Other: All systems not noted in ROS Statement are negative. Past Medical History Past Medical History: Cancer, COPD, Hyperlipidemia, Hypertension, Osteoarthritis (OA), Pulmonary Embolus (PE), Vascular Disorder Additional Past Medical History / Comment(s): Hx Bladder cancer- post surgical now. PE 2014. Pain in lt leg, discoloration in great toe. History of Any Multi-Drug Resistant Organisms: None Reported Past Surgical History: Appendectomy, Bladder Surgery, Breast Surgery, Cholecystectomy, Hysterectomy Additional Past Surgical History / Comment(s): bladder surgery to remove cancer. 08/26/19 Angiography. cysts on lt breast removed, sinus surgery, left femoral stent 05/2019 Past Anesthesia/Blood Transfusion Reactions: No Reported Reaction Past Psychological History: No Psychological Hx Reported Smoking Status: Former smoker Past Alcohol Use History: None Reported - Past Family History Mother Family Medical History: Liver Disease Additional Family Medical History / Comment(s): liver cirrhosis Father Family Medical History: Myocardial Infarction ([place]) Brother(s) Family Medical History: Cancer Additional Family Medical History / Comment(s): LUNG AND BRAIN CANCER General Exam Limitations: no limitations General appearance: alert, in no apparent distress Head exam: Present: atraumatic, normocephalic Eye exam: Present: normal appearance, PERRL ENT exam: Present: normal exam Neck exam: Present: normal inspection. Absent: tenderness, meningismus Respiratory exam: Present: normal lung sounds bilaterally. Absent: respiratory distress, wheezes Cardiovascular Exam: Present: regular rate, normal rhythm GI/Abdominal exam: Present: soft, tenderness. Absent: distended, guarding, rebound Extremities exam: Present: normal inspection, normal capillary refill, other (Distal pulses 2+). Absent: pedal edema Back exam: Present: normal inspection Neurological exam: Present: alert, oriented X3, CN II-XII intact. Absent: motor sensory deficit Psychiatric exam: Present: normal affect, normal mood Skin exam: Present: warm, dry, intact. Absent: cyanosis, diaphoretic Course Vital Signs 08/31/20 18:32 Temperature 98.6 F Pulse Rate 101 H Respiratory 20 Rate Blood Pressure 135/87 O2 Sat by Pulse 100 Oximetry Medical Decision Making - Medical Decision Making 59-year-old female had presented for evaluation of low back pain, and x-ray performed which was concerning for possible kidney stone and abdominal aortic aneurysm. CT was performed, shows a 2.8 cm lower abdominal aortic aneurysm which is unchanged compared to CT performed approximately 18 months ago. There is stenting in the iliacs. Patient does have good peripheral pulses. There is no stones or hydronephrosis. There is no hematuria. She has a normal CBC, normal CMP. She did not request any pain medication. She can continue to follow with her primary care regarding these symptoms. - Lab Data Result diagrams: 08/31/20 18:59 08/31/20 18:59 Lab Results 08/31/20 08/31/20 08/31/20 Range/Units 18:59 18:59 18:59 WBC 11.5 H (3.8-10.6) k/uL RBC 4.89 (3.80-5.40) m/uL Hgb 14.1 (11.4-16.0) gm/dL Hct 41.8 (34.0-46.0) % MCV 85.5 (80.0-100.0) fL MCH 28.7 (25.0-35.0) pg MCHC 33.6 (31.0-37.0) g/dL RDW 15.1 (11.5-15.5) % Plt Count 368 (150-450) k/uL MPV 7.3 Neutrophils % 57 % Lymphocytes % 33 % Monocytes % 5 % Eosinophils % 3 % Basophils % 1 % Neutrophils # 6.6 (1.3-7.7) k/uL Lymphocytes # 3.8 (1.0-4.8) k/uL Monocytes # 0.6 (0-1.0) k/uL Eosinophils # 0.4 (0-0.7) k/uL Basophils # 0.1 (0-0.2) k/uL PT 9.9 (9.0-12.0) sec INR 0.9 (<1.2) APTT 22.9 (22.0-30.0) sec Sodium (137-145) mmol/L Potassium (3.5-5.1) mmol/L Chloride (98-107) mmol/L Carbon Dioxide (22-30) mmol/L Anion Gap mmol/L BUN (7-17) mg/dL Creatinine (0.52-1.04) mg/dL Est GFR (CKD-EPI)AfAm (>60 ml/min/1.73 sqM) Est GFR (CKD-EPI)NonAf (>60 ml/min/1.73 sqM) Glucose (74-99) mg/dL Calcium (8.4-10.2) mg/dL Total Bilirubin (0.2-1.3) mg/dL AST (14-36) U/L ALT (4-34) U/L Alkaline Phosphatase (38-126) U/L Total Protein (6.3-8.2) g/dL Albumin (3.5-5.0) g/dL Amylase (30-110) U/L Lipase (23-300) U/L Urine Color Yellow Urine Appearance Clear (Clear) Urine pH 5.0 (5.0-8.0) Ur Specific [place] 1.008 (1.001-1.035) Urine Protein Negative (Negative) Urine Glucose (UA) Negative (Negative) Urine Ketones Negative (Negative) Urine Blood Negative (Negative) Urine Nitrite Negative (Negative) Urine Bilirubin Negative (Negative) Urine Urobilinogen <2.0 (<2.0) mg/dL Ur Leukocyte Esterase Negative (Negative) 08/31/20 Range/Units 18:59 WBC (3.8-10.6) k/uL RBC (3.80-5.40) m/uL Hgb (11.4-16.0) gm/dL Hct (34.0-46.0) % MCV (80.0-100.0) fL MCH (25.0-35.0) pg MCHC (31.0-37.0) g/dL RDW (11.5-15.5) % Plt Count (150-450) k/uL MPV Neutrophils % % Lymphocytes % % Monocytes % % Eosinophils % % Basophils % % Neutrophils # (1.3-7.7) k/uL Lymphocytes # (1.0-4.8) k/uL Monocytes # (0-1.0) k/uL Eosinophils # (0-0.7) k/uL Basophils # (0-0.2) k/uL PT (9.0-12.0) sec INR (<1.2) APTT (22.0-30.0) sec Sodium 140 (137-145) mmol/L Potassium 3.9 (3.5-5.1) mmol/L Chloride 106 (98-107) mmol/L Carbon Dioxide 25 (22-30) mmol/L Anion Gap 9 mmol/L BUN 17 (7-17) mg/dL Creatinine 0.86 (0.52-1.04) mg/dL Est GFR (CKD-EPI)AfAm 87 (>60 ml/min/1.73 sqM) Est GFR (CKD-EPI)NonAf 75 (>60 ml/min/1.73 sqM) Glucose 78 (74-99) mg/dL Calcium 10.2 (8.4-10.2) mg/dL Total Bilirubin 0.6 (0.2-1.3) mg/dL AST 23 (14-36) U/L ALT 24 (4-34) U/L Alkaline Phosphatase 98 (38-126) U/L Total Protein 7.6 (6.3-8.2) g/dL Albumin 4.5 (3.5-5.0) g/dL Amylase 58 (30-110) U/L Lipase 67 (23-300) U/L Urine Color Urine Appearance (Clear) Urine pH (5.0-8.0) Ur Specific [place] (1.001-1.035) Urine Protein (Negative) Urine Glucose (UA) (Negative) Urine Ketones (Negative) Urine Blood (Negative) Urine Nitrite (Negative) Urine Bilirubin (Negative) Urine Urobilinogen (<2.0) mg/dL Ur Leukocyte Esterase (Negative) Disposition Clinical Impression: Low back pain Disposition: HOME SELF-CARE Condition: Good Instructions (If sedation given, give patient instructions): Acute Low Back Pain (ED) Is patient prescribed a controlled substance at d/c from ED?: No Referrals: Edmundo Lobato MD [Primary Care Provider] - 1-2 days Time of Disposition: 20:12
--- NOTE | 2020-08-31 19:47 | CT ---
EXAMINATION TYPE: CT abdomen pelvis w con DATE OF EXAM: 08/31/2020 COMPARISON: 04/07/2019 HISTORY: low back pain CT DLP: 1030.9 mGycm Automated exposure control for dose reduction was used. CONTRAST: Performed with IV Contrast, patient injected with 100 mL of Isovue 300. Lung bases are clear of consolidation. There is mild subsegmental atelectasis at the left lung base. There is no pleural effusion. Heart size is normal. There is no pericardial effusion. There are clips from cholecystectomy. Liver spleen stomach pancreas appear normal. Bile ducts are not dilated. There are clips from cholecystectomy. There is no adrenal mass. Kidneys show satisfactory contrast opacification. There is no hydronephrosi s. Ureters are not dilated. There is no retroperitoneal adenopathy. Bladder distends smoothly. There is no inguinal hernia. There is no free fluid in the pelvis. Appendix is not seen. There is no sign of thickened appendix. There is some retained fecal material i n the large bowel. There is thoracolumbar levoscoliosis. There is no lumbar compression fracture. Bony pelvis is intact. Hip joints are intact. Abdominal aorta is atheromatous. IMPRESSION: Mild constipation increased compared to old exam. No acute abnormality of the abdomen pelvis.
[2020-08-31] MEDS ORDERED: HYDROcodone/APAP 5-325MG 1 EACH TAB PO STA (20:18)
[2020-08-31 20:27] VITALS: BP 123/76; PULSE 78; RESP 18
== END 2020-08-31 20:27 | disposition home or self-care (01) ==
LOC: EC 18:29
DX: M54.5 Low back pain (principal); I71.4 Abdominal aortic aneurysm, without rupture; I10 Essential (primary) hypertension; E78.5 Hyperlipidemia, unspecified; M19.90 Unspecified osteoarthritis, unspecified site; Z79.82 Long term (current) use of aspirin; Z79.899 Other long term (current) drug therapy; Z79.02 Long term (current) use of antithrombotics/antiplatelets; Z88.8 Allergy status to other drugs, medicaments and biological substances; Z88.0 Allergy status to penicillin; Z90.710 Acquired absence of both cervix and uterus; Z95.820 Peripheral vascular angioplasty status with implants and grafts; Z90.89 Acquired absence of other organs; Z87.891 Personal history of nicotine dependence; Z86.711 Personal history of pulmonary embolism; Z85.51 Personal history of malignant neoplasm of bladder; Z90.49 Acquired absence of other specified parts of digestive tract
CPT/HCPCS: 36415; 80053; 82150; 83690; 85025; 85610; 85730; 81003; 74177; 99284; Q9967

== ENCOUNTER 2020-09-14 10:15 | Observation (INO) | payer BC ==
--- NOTE | 2020-09-14 04:42 | P.GSHP ---
History of Present Illness H&P Date: 09/14/20 CHIEF COMPLAINT: Paraesophageal hiatal hernia with gastroesophageal reflux disease. HISTORY OF PRESENT ILLNESS: The patient is a 59-year-old female who presents with paraesophageal hiatal hernia. She has completed an esophageal manometry including upper endoscopy workup. Now she presents for surgical intervention. PAST MEDICAL HISTORY: Please see list. PAST SURGICAL HISTORY: Please see list. MEDICATIONS: Please see list. ALLERGIES: Please see list. SOCIAL HISTORY: No illicit drug use FAMILY HISTORY: No reports of Crohn disease or ulcerative colitis. REVIEW OF ORGAN SYSTEMS: CONSTITUTIONAL: No reports of fevers or chills. GI: Denies any blood in stools or constipation. PHYSICAL EXAM: VITAL SIGNS: Stable GENERAL: Well-developed pleasant and in no acute distress. HEENT: No scleral icterus. Extraocular movements grossly intact. Moist buccal mucosa. NECK: Supple without lymphadenopathy. CHEST: Unlabored respirations. Equal bilateral excursions. CARDIOVASCULAR: Regular rate and rhythm. Distal 2+ pulses. ABDOMEN: Soft, nondistended. No peritoneal signs. MUSCULOSKELETAL: No clubbing, cyanosis, or edema. SKIN: Well-perfused. Good skin turgor. MANOMETRY: Shows no evidence of achalasia or scleroderma. ASSESSMENT: 1. Diaphragmatic paraesophageal hiatal hernia with severe gastroesophageal reflux disease. PLAN: 1. Recommend proceeding with a robotic paraesophageal hiatal hernia with possible mesh. 2. Benefits and risks of surgical intervention was discussed including possibility of open technique. 3. Inpatient hospitalization recommended of 2 nights 4. DVT prophylaxis. 5. Antibiotic prophylaxis. 6. She has also completed a very low caloric high-protein diet to address underlying hepatomegaly. Past Medical History Past Medical History: Cancer, COPD, Hyperlipidemia, Hypertension, Osteoarthritis (OA), Pulmonary Embolus (PE), Vascular Disorder Additional Past Medical History / Comment(s): Hx Bladder cancer- post surgical now. PE 2014. History of Any Multi-Drug Resistant Organisms: None Reported Past Surgical History: Appendectomy, Bladder Surgery, Breast Surgery, Cholecystectomy, Hysterectomy Additional Past Surgical History / Comment(s): bladder surgery to remove cancer. 08/26/19 Angiography. cysts on lt breast removed, sinus surgery, left femoral stent 05/2019, stenting right & left iliac artery September 2019 Past Anesthesia/Blood Transfusion Reactions: No Reported Reaction Smoking Status: Former smoker - Past Family History Mother Family Medical History: Liver Disease Additional Family Medical History / Comment(s): liver cirrhosis Father Family Medical History: Myocardial Infarction ([place]) Brother(s) Family Medical History: Cancer Additional Family Medical History / Comment(s): LUNG AND BRAIN CANCER Medications and Allergies Home Medications Medication Instructions Recorded Confirmed Type Aspirin 81 mg PO HS 08/25/19 09/04/20 History Clopidogrel [Plavix] 75 mg PO HS 08/25/19 09/04/20 History Metoprolol Succinate [Toprol XL] 25 mg PO HS 08/25/19 09/04/20 History Rosuvastatin Calcium [Crestor] 40 mg PO HS 08/25/19 09/04/20 History Fluticasone/Umeclidin/Vilanter 1 inhalation INHALATION HS 09/04/20 09/04/20 History [Ray Hanley 100-62.5-25] Allergies Allergy/AdvReac Type Severity Reaction Status Date / Time atorvastatin Allergy SEVERE Verified 09/04/20 16:20 HEARTBURN Penicillins Allergy Rash/Hives/ Verified 09/04/20 16:20 Nausea
[~2020-09-14 10:15] MED LIST changes: +ACETAMINOPHEN TAB 500 MG TAB PO PRN; +DEXAMETHASONE SOD PHOSPHATE 4 MG/ML 1 ML VIAL IV ONE; +GABAPENTIN 300 MG CAP PO PRN; +HEPARIN SODIUM,PORCINE 5,000 UNIT/ML 1 ML VIAL SQ PRN; +HYDROmorphone 0.5 MG/0.5 ML SYRINGE IVP PRN; -LACTATED RINGERS 1,000 ML IV SCH; +MELOXICAM 7.5 MG TAB PO PRN; +ONDANSETRON 4 MG/2 ML VIAL IVP ONE; +SCOPOLAMINE 1.5MG/72HR PATCH TRANSDERM ONE; -fentaNYL (PF) 50 MCG/ML 2 ML AMP IV PRN; -fentaNYL (PF) 50 MCG/ML 2 ML AMP IVP PRN
[2020-09-14] MEDS ORDERED: LIDOCAINE 1% (10MG/ML) FOR IV START INTRADERMA ONE (11:01)
[2020-09-14] MEDS: LACTATED RINGERS 1,000 ML IV SCH (11:01)
[2020-09-14 11:16] LABS: Basophils # (A) 0.1 k/uL (0-0.2); Basophils % (A) 1 %; Eosinophils # (A) 0.3 k/uL (0-0.7); Eosinophils % (A) 2 %; HCT 45.3 % (34.0-46.0); HGB 15.6 gm/dL (11.4-16.0); Lymphocytes # (A) 3.7 k/uL (1.0-4.8); Lymphocytes % (A) 27 %; MCH 29.1 pg (25.0-35.0); MCHC 34.4 g/dL (31.0-37.0); MCV 84.6 fL (80.0-100.0); Mean Platelet Volume 7.3; Monocytes # (A) 0.6 k/uL (0-1.0); Monocytes % (A) 5 %; Neutrophils # (A) 8.9 k/uL (1.3-7.7); Neutrophils % (A) 64 %; Platelet Count 408 k/uL (150-450); RBC 5.36 m/uL (3.80-5.40); WBC 13.8 k/uL (3.8-10.6)
[2020-09-14 11:27] LABS: ALT 30 U/L (4-34); African American GFR (CKD) >90 (>60 ml/min/1.73 sqM); Albumin 4.8 g/dL (3.5-5.0); Anion Gap 10 mmol/L; Blood Urea Nitrogen 20 mg/dL (7-17); Calcium 10.2 mg/dL (8.4-10.2); Carbon Dioxide 20 mmol/L (22-30); Chloride 106 mmol/L (98-107); Glucose 100 mg/dL (74-99); Non-African American GFR(CKD) 88 (>60 ml/min/1.73 sqM); Sodium 136 mmol/L (137-145); Total Bilirubin 0.7 mg/dL (0.2-1.3); Total Protein 8.1 g/dL (6.3-8.2)
[2020-09-14] MEDS ORDERED: fentaNYL (PF) 50 MCG/ML 2 ML AMP IV ONE (11:28)
[2020-09-14] MEDS ORDERED: MIDAZOLAM 2 MG/2 ML VIAL IV ONE (11:28)
[2020-09-14 11:32] LABS: AST 35 U/L (14-36)
[2020-09-14 11:33] LABS: Alkaline Phosphatase 102 U/L (38-126)
[2020-09-14] MEDS ORDERED: FAMOTIDINE 20 MG/2 ML VIAL IV ONE (11:59)
[2020-09-14] MEDS ORDERED: ROCURONIUM 10 MG/ML (5 ML VIAL) IV ONE (13:28)
[2020-09-14] MEDS ORDERED: ePHEDrine SULFATE/0.9% NACL/PF 50 MG/5 ML SYRINGE IV ONE (13:28)
[2020-09-14] MEDS ORDERED: ROPIVACAINE 5 MG/ML 30 ML VIAL ONE (13:28)
[2020-09-14] MEDS ORDERED: fentaNYL (PF) 50 MCG/ML 2 ML AMP ONE (13:28)
[2020-09-14] MEDS ORDERED: NEOSTIGMINE 1 MG/ML 10 ML VIAL ONE (13:28)
[2020-09-14] MEDS ORDERED: PROPOFOL 10 MG/ML 20 ML VIAL IV ONE (13:28)
[2020-09-14] MEDS ORDERED: SUCCINYLCHOLINE CHLORIDE 100 MG/5 ML SYR IV ONE (13:28)
[2020-09-14] MEDS ORDERED: LIDOCAINE 1% INJ 10MG/ML (20 ML MDV) ONE (13:28)
[2020-09-14] MEDS ORDERED: MIDAZOLAM 2 MG/2 ML VIAL ONE (13:28)
[2020-09-14] MEDS ORDERED: GLYCOPYRROLATE 0.2 MG/ML 2 ML VIAL ONE (13:28)
[2020-09-14] MEDS ORDERED: LACTATED RINGERS 1,000 ML IV ONE (14:07)
--- NOTE | 2020-09-14 14:12 | P.ANPRN ---
Procedure Note - Anesthesia - Nerve Block Performed Bilateral Erector Spinae Single Time Out Performed: Yes ([id number]) Date of Procedure: 09/14/20 Procedure Start Time: 11:29 Procedure Stop Time: 11:38 Location of Patient: PreOp Indication: Acute Post-Operative Pain, Requested by Surgeon Specifically requested for management of pain by : Cheryl Jacob Sedation Type: Sedate with meaningful contact maintained Preparation: Sterile Prep Position: Prone Catheter: None Needle Types: Pajunk Needle Gauge: 21 Ultrasound used to visualize needle placement: Yes Ultrasound used to observe medication spread: Yes Injectate: Other (see comment) (Ropi 0.25% 30cc each side) Blood Aspirated: No Pain Paresthesia on Injection Noted: No Resistance on Injection: Normal Image Stored and Saved: Yes Events: Uneventful and Well Tolerated
[2020-09-14] MEDS ORDERED: BUPIVACAIN-EPI 0.5%-1:200,000 30 ML VIAL SQ ONE (14:40)
[2020-09-14] MEDS ORDERED: SODIUM CHLORIDE 0.9% 1,000 ML IV ONE (15:22)
[2020-09-14] MEDS ORDERED: ONDANSETRON 4 MG/2 ML VIAL IVP PRN (15:27)
[2020-09-14] MEDS ORDERED: DEXAMETHASONE SOD PHOSPHATE 10 MG/ML 1 ML VIAL IV PRN (15:28)
[2020-09-14] MEDS ORDERED: HYDROmorphone 1 MG/ML 1 ML SYRINGE IVP PRN (15:29)
[2020-09-14] MEDS ORDERED: diphenhydrAMINE 50 MG/ML 1 ML VIAL IVP PRN (15:29)
[2020-09-14] MEDS ORDERED: NALOXONE 0.4 MG/ML 1 ML VIAL IV PRN (15:29)
--- NOTE | 2020-09-14 15:41 | P.OP ---
Date of Procedure: 09/14/20 Description of Procedure: SURGEON: RENE ZURITA MD PREOPERATIVE DIAGNOSES: 1. Symptomatic paraesophageal diaphragmatic hiatal hernia. 2. Gastroesophageal reflux disease. 3. Chronic obstructive pulmonary disease 4. Coronary artery disease 5. Chronic antiplatelet use 6. Hypertensive heart disease 7. History of tobacco abuse 8. Hyperlipidemia 9. Ineffective esophageal dysmotility POSTOPERATIVE DIAGNOSES: 1. Paraesophageal midline diaphragmatic hernia, 6 cm, with incarceration. 2. Gastroesophageal reflux disease. 3. Chronic obstructive pulmonary disease 4. Coronary artery disease 5. Chronic antiplatelet use 6. Hypertensive heart disease 7. History of tobacco abuse 8. Hyperlipidemia 9. Ineffective esophageal dysmotility OPERATION: 1. Robotic-assisted da Neftali Xi laparoscopic repair of incarcerated paraesophageal hiatal hernia, 6 x 5 cm, with Canby Biopatch A 8 x 8 cm. 2. Intraoperative esophagogastroduodenoscopy 3. Placement of 56-Spanish bougie for esophageal dysmotility ANESTHESIA: General with local anesthetic. ESTIMATED BLOOD LOSS: 5 mL SPECIMENS REMOVED: None COMPLICATIONS: None. Condition: stable Disposition: floor FINDINGS: 1. Midline incarcerated paraesophageal hiatal hernia 5 x 6 cm 2. Intraoperative upper endoscopy confirms complete closure of hiatal hernia from Hill grade 3 to Hill grade 1 3. Intraesophageal length over 3 cm INDICATIONS: The patient is a 59-year-old female who presents with gastroesophageal reflux disease poorly controlled despite medications, and a symptomatic diaphragmatic hiatal hernia. She underwent complete tobacco discontinuance as she was counseled that any tobacco abuse will complicate her procedure. Preoperative workup including upper endoscopy demonstrated fixed sliding hiatal hernia. The patient completed an esophageal manometry demonstrating ineffective esophageal dysmotility with reflux. Given the severity of symptoms, the patient had elected for surgical intervention. Benefits and risks including bleeding, infection, recurrence, dysphagia, injury to the lung, need for further surgery was described at length. Risks of patient noncompliance and complications were described. Informed consent was obtained. DESCRIPTION: The patient was brought into the operating room and placed in supine position. Preoperatively the patient had received heparin subcutaneously for DVT prophylaxis. After general induction, the abdomen was prepped and draped in standard sterile fashion. The patient had previously voided prior to coming to the operating room. Ioban draping was placed along the abdomen. A timeout protocol was confirmed with the surgical team, for which the patient's name, procedure to be performed including DVT prophylaxis with bilateral SCDs, and preoperative antibiotics were also confirmed. A robotic da Neftali Xi system was prepped and primed. At 12 cm from the xiphoid to just below the umbilicus, proposed port sites were marked with indelible marker along the left axillary line, left mid-clavicular line with each ports were marked 10 cm from each other. A 5 mm 0 degrees laparoscopic trocar entry was performed along the left upper quadrant. The abdomen was insufflated to 15 mmHg pressure was tolerated well. Diagnostic laparoscopy demonstrated no injury to bowel, viscera, or mesentery. No injury had occurred to the small bowel or viscera. The liver was smooth consistent with two-week high-protein low-carb diet. Previous trochar sites from cholecystectomy were used. Next, one 8 mm robotic port was placed along the right upper abdomen. An 8-mm port was were placed along the right lateral lateral abdominal wall. The camera 8-mm port was maintained along the epigastrium. Another 12 mm port was placed along the left upper abdominal wall after exchanging the 5 mm port. Please note that the ports were placed at least 20 cm away from the target anatomy. Care was taken to check that each robotic arm were safely away from collision with the bed or the patient. At the epigastrium, a medium sized Chaparro liver retractor was placed under direct visualization with the Iron Registered Physical Therapist placed under the right shoulder of the patient. All robotic arms were used. The patient was repositioned in reverse Trendelenburg position at 21-degrees after lowering the bed. The robot was docked above the right side of the patient. Using a grasper for arm 3, a grasper for arm 1, including vessel sealer for arm 2, the robotic system was docked and primed as described. Instruments were interchanged by the assistant unit forester. I had sat at the console. The gastrohepatic ligament was cleaved using a vessel sealer. Next, the phrenoesophageal ligament was mobilized and the distal esophagus was mobilized circumferentially. The left and right crura was identified. Circumferentially, the hernia sac was excised and brought into the peritoneal cavity. Moderate dissection into the mediastinum was performed to release the esophagus into the abdominal cavity. The paraesophageal hiatal hernia sac was also incised and divided from the esophagus. Care was taken to avoid any gastrotomy. The measured defect was consistent with 3 cm axial length and 3 cm in width. After dissection, the distal esophagus of 3 cm was brought into the abdominal cavity. Once the hiatus and crura was dissected, nonabsorbable #1 VLOC suture was placed to reapproximate the diaphragmatic hiatus posteriorly. To buttress the repair, a [place] Biopatch A was prepared along the back table and cut in half of a santiago-hole fashion as to reinforce the repair as an underlay. The mesh was placed along the crural repair and tagged using horizontal mattress sutures using nonabsorbable #1 VLOC. I went to the head of the bed to perform intraoperative esophagogastroduodenoscopy and placement of a 56Fr bougie. Patient had pre- existing sharp chip tooth including poor dentition. The bougie was passed along the posterior oropharynx into the stomach to address pre-existing esophageal dysmotility for 2 minutes then removed. An Olympus gastroscope was passed through posterior oropharynx. Retroflexion of the scope confirmed a Hill grade 1 lower esophageal valve. The stomach had been desufflated. No evidence of leaks were found of the esophagus or stomach. The GI tract with desufflated This concluded the endoscopic portion of the case. The robot was undocked from the patient. I re-scrubbed into the case. All instruments and pneumoperitoneum and specimens were evacuated from the abdominal cavity. Incisions were reapproximated using 4-0 Monocryl in an interrupted subcuticular fashion. Liquid glue was applied to the skin. Local anesthetic was infiltrated in all wounds for postop analgesia. At the end of the procedure, needle, sponge, and instrument count was verified correct by the surgical training specialist. The patient had tolerated the procedure well and was taken to the postanesthesia unit in stable condition. Plan - Discharge Summary Discharge Rx Participant: Yes New Discharge Prescriptions: Continue Rosuvastatin Calcium [Crestor] 40 mg PO HS Metoprolol Succinate [Toprol XL] 25 mg PO HS Clopidogrel [Plavix] 75 mg PO HS Aspirin 81 mg PO HS Fluticasone/Umeclidin/Vilanter [Trelegy Ellipta 100-62.5-25] 1 inhalation INHALATION HS Discharge Medication List Aspirin 81 mg PO HS 08/25/19 [History] Clopidogrel [Plavix] 75 mg PO HS 08/25/19 [History] Metoprolol Succinate [Toprol XL] 25 mg PO HS 08/25/19 [History] Rosuvastatin Calcium [Crestor] 40 mg PO HS 08/25/19 [History] Fluticasone/Umeclidin/Vilanter [Trelegy Ellipta 100-62.5-25] 1 inhalation INHALATION HS 09/04/20 [History]
[2020-09-14] MEDS ORDERED: KETOROLAC 15 MG/ML 1 ML VIAL IVP ONE (15:50)
[2020-09-14] MEDS ORDERED: ALBUTEROL NEBULIZED 2.5 MG/3 ML INHALATION SCH (16:00)
[2020-09-14] MEDS: HYOSCYAMINE ORAL DROPS 1.875 MG/15 ML BOTTLE PO SCH (17:50)
[2020-09-14] MEDS: SIMETHICONE 40 MG/0.6 ML DROPS 2,000 MG/30 ML BOTTLE PO SCH (17:51)
[2020-09-14] MEDS: METOCLOPRAMIDE 5 MG/ML 2 ML VIAL IVP SCH (17:52)
[2020-09-14] MEDS: DEXAMETHASONE SOD PHOSPHATE 4 MG/ML 1 ML VIAL IV SCH (17:53)
[2020-09-14] MEDS ORDERED: KETOROLAC 15 MG/ML 1 ML VIAL IVP SCH (18:00)
[2020-09-14] MEDS ORDERED: LEVOFLOXACIN 500MG-D5W PMX 500 MG in DEXTROSE/WATER 1 100ML.BAG IVPB SCH (18:00)
[2020-09-14] MEDS: IPRATROPIUM-ALBUTEROL 3 ML NEB INHALATION SCH (20:33)
[2020-09-14] MEDS ORDERED: METOPROLOL SUCCINATE (ER) 25 MG TAB.ER.24H PO SCH (21:00)
[2020-09-14] MEDS: KETOROLAC 15 MG/ML 1 ML VIAL IVP SCH (21:32)
[2020-09-15] MEDS: SIMETHICONE 40 MG/0.6 ML DROPS 2,000 MG/30 ML BOTTLE PO SCH ×3 (00:07→12:23)
[2020-09-15] MEDS: METOCLOPRAMIDE 5 MG/ML 2 ML VIAL IVP SCH ×3 (00:07→12:23)
[2020-09-15] MEDS: DEXAMETHASONE SOD PHOSPHATE 4 MG/ML 1 ML VIAL IV SCH ×3 (00:07→12:23)
[2020-09-15] MEDS: HYOSCYAMINE ORAL DROPS 1.875 MG/15 ML BOTTLE PO SCH ×3 (00:07→12:23)
[2020-09-15] MEDS: LACTATED RINGERS 1,000 ML IV SCH ×2 (00:08→08:46)
[2020-09-15] MEDS: KETOROLAC 15 MG/ML 1 ML VIAL IVP SCH ×2 (03:08→08:45)
[2020-09-15 06:13] LABS: Appearance,Urine Clear (Clear); Bilirubin,Urine Negative (Negative); Blood,Urine Negative (Negative); Color,Urine Yellow; Glucose,Urine (UA) Negative (Negative); Ketones,Urine Negative (Negative); Leukocyte Esterase,Urine Negative (Negative); Nitrite,Urine Negative (Negative); Protein,Urine Negative (Negative); Specific Gravity,Urine 1.019 (1.001-1.035); Urobilinogen,Urine <2.0 mg/dL (<2.0)
[2020-09-15] MEDS: IPRATROPIUM-ALBUTEROL 3 ML NEB INHALATION SCH ×2 (07:50→12:23)
[2020-09-15] MEDS ORDERED: IPRATROPIUM 0.5 MG/2.5 ML NEBU INHALATION SCH (08:00)
[2020-09-15] MEDS ORDERED: SYMBICORT 80-4.5 MCG INHALER INHALATION SCH (08:00)
[2020-09-15 08:42] VITALS: BP 119/71; RESP 16; TEMP 98.2
[2020-09-15] MEDS ORDERED: SODIUM CHLORIDE 0.9% 1,000 ML IV SCH (08:45)
[2020-09-15] MEDS ORDERED: ENOXAPARIN 30 MG/0.3 ML SYRINGE SQ SCH (09:00)
[2020-09-15] MEDS ORDERED: ACETAMINOPHEN IV (For NPO) 1,000 MG in EMPTY BAG 1 BAG IVPB SCH (09:00)
[2020-09-15] MEDS ORDERED: PANTOPRAZOLE 40 MG/10 ML VIAL IV SCH (09:00)
--- NOTE | 2020-09-15 09:46 | XR ---
Abdomen with contrast HISTORY: Status post Alfredo fundoplication Patient was given 50 cc Isovue-370 and frontal images were obtained. [address] images obtained. Correlation to CT scan 08/31/2020 Contrast material is present within the distal esophagus as well as within the stomach. Splenic arter y calcification is noted incidentally to the left paraspinal location, there are bilateral common benton ac artery stents. Surgical clips are present right upper quadrant. There is a scoliotic curvature to the spine. No evident pneumoperitoneum. IMPRESSION: Persistent contrast noted within the distal esophagus with contrast within the stomach mclean ggests some mild to moderate obstruction.
[2020-09-15 10:31] VITALS: BMI 27.1
[2020-09-15 11:13] LABS: African American GFR (CKD) >90 (>60 ml/min/1.73 sqM); Anion Gap 10 mmol/L; Basophils % (A) 0 %; Blood Urea Nitrogen 16 mg/dL (7-17); Calcium 9.9 mg/dL (8.4-10.2); Carbon Dioxide 22 mmol/L (22-30); Chloride 106 mmol/L (98-107); Eosinophils # (A) 0.1 k/uL (0-0.7); Eosinophils % (A) 0 %; Glucose 176 mg/dL (74-99); HCT 41.8 % (34.0-46.0); HGB 13.2 gm/dL (11.4-16.0); Lymphocytes # (A) 0.8 k/uL (1.0-4.8); Lymphocytes % (A) 4 %; MCH 27.6 pg (25.0-35.0); MCHC 31.5 g/dL (31.0-37.0); MCV 87.6 fL (80.0-100.0); Mean Platelet Volume 7.4; Monocytes # (A) 0.6 k/uL (0-1.0); Monocytes % (A) 3 %; Neutrophils # (A) 20.1 k/uL (1.3-7.7); Neutrophils % (A) 93 %; Non-African American GFR(CKD) 84 (>60 ml/min/1.73 sqM); Platelet Count 382 k/uL (150-450); Potassium 3.9 mmol/L (3.5-5.1); RBC 4.77 m/uL (3.80-5.40); RDW 15.2 % (11.5-15.5); Sodium 138 mmol/L (137-145); WBC 21.5 k/uL (3.8-10.6)
[2020-09-15 12:24] VITALS: PULSE 90
--- NOTE | 2020-09-17 20:10 | P.DS ---
Providers Date of admission: 09/15/20 08:55 Expected date of discharge: 09/15/20 Attending physician: Cheryl Jacbo Primary care physician: Chevy Lobato - Discharge Diagnosis(es) (1) Gastroesophageal reflux disease Status: Acute (2) Paraesophageal hernia with obstruction but no gangrene Status: Acute Hospital Course: POSTOPERATIVE DIAGNOSES: 1. Paraesophageal midline diaphragmatic hernia, 6 cm, with incarceration. 2. Gastroesophageal reflux disease. 3. Chronic obstructive pulmonary disease 4. Coronary artery disease 5. Chronic antiplatelet use 6. Hypertensive heart disease 7. History of tobacco abuse 8. Hyperlipidemia 9. Ineffective esophageal dysmotility COURSE: The patient is a 59-year-old female who presented with gastroesophageal reflux disease poorly controlled despite medications, and a symptomatic diaphragmatic hiatal hernia. She had a hiatal hernia repair. Postoperatively, her pain was well controlled. She was tolerating liquids. Prior to discharge, she was hemodynamically stable. Procedures: OPERATION: 1. Robotic-assisted da Neftali Xi laparoscopic repair of incarcerated paraesophageal hiatal hernia, 6 x 5 cm, with [place] Biopatch A 8 x 8 cm. 2. Intraoperative esophagogastroduodenoscopy 3. Placement of 56-Kyrgyz bougie for esophageal dysmotility ANESTHESIA: General with local anesthetic. ESTIMATED BLOOD LOSS: 5 mL SPECIMENS REMOVED: None COMPLICATIONS: None. Condition: stable Disposition: floor FINDINGS: 1. Midline incarcerated paraesophageal hiatal hernia 5 x 6 cm 2. Intraoperative upper endoscopy confirms complete closure of hiatal hernia from Hill grade 3 to Hill grade 1 3. Intraesophageal length over 3 cm Patient Condition at Discharge: Good Plan - Discharge Summary Discharge Rx Participant: Yes New Discharge Prescriptions: New bisacodyL [Dulcolax] 5 mg PO DAILY PRN #10 tablet.dr PRN Reason: Constipation Simethicone 40 mg/0.6 ml Drops [Mylicon Drops] 40 mg PO PCHS PRN #30 ml PRN Reason: Gas Ondansetron Odt [Zofran Odt] 4 mg PO Q8HR PRN #9 tab PRN Reason: Nausea Acetaminophen Oral Susp [Tylenol Oral Susp] 500 mg PO Q4-6H PRN #400 ml PRN Reason: Pain Continue Rosuvastatin Calcium [Crestor] 40 mg PO HS Metoprolol Succinate [Toprol XL] 25 mg PO HS Clopidogrel [Plavix] 75 mg PO HS Aspirin 81 mg PO HS Fluticasone/Umeclidin/Vilanter [Trelegy Ellipta 100-62.5-25] 1 inhalation INHALATION HS Discharge Medication List Aspirin 81 mg PO HS 08/25/19 [History] Clopidogrel [Plavix] 75 mg PO HS 08/25/19 [History] Metoprolol Succinate [Toprol XL] 25 mg PO HS 08/25/19 [History] Rosuvastatin Calcium [Crestor] 40 mg PO HS 08/25/19 [History] Fluticasone/Umeclidin/Vilanter [Trelegy Ellipta 100-62.5-25] 1 inhalation INHALATION HS 09/04/20 [History] Acetaminophen Oral Susp [Tylenol Oral Susp] 500 mg PO Q4-6H PRN #400 ml 09/15/20 [Rx] Ondansetron Odt [Zofran Odt] 4 mg PO Q8HR PRN #9 tab 09/15/20 [Rx] Simethicone 40 mg/0.6 ml Drops [Mylicon Drops] 40 mg PO HS PRN #30 ml 09/15/20 [Rx] bisacodyL [Dulcolax] 5 mg PO DAILY PRN #10 tablet. 09/15/20 [Rx] Follow up Appointment(s)/Referral(s): Cheryl Jacob MD [STAFF PHYSICIAN] - 09/18/20 Patient Instructions/Handouts: Hiatal Hernia (DC), Laparoscopic Hiatal Hernia Repair (DC) Activity/Diet/Wound Care/Special Instructions: START PLAVIX ON ThursdaySEPTEMBER 17 No carbonated beverages. No straws. FULL Liquid diet only for 2 weeks until September 28. No lifting over 4 pounds in 4 weeks, October 15November shower No soaking in bath tubs for 2 weeks, until September 28. Please notify your surgeon if you develop nausea and vomiting including new onset of abdominal pain. Please ambulate. Use Tylenol and ibuprofen or Aleve scheduled for the next 24-48 hours for best pain relief. Use ice along incisions for the today to prevent swelling. Please open, cut, crush pills larger than the size of a tic tack Do not remove scopolamine patch for 3 days, if present Follow up with physician as directed. call with any questions comments concerns worsening returning symptoms, fever 101.1 or higher, not tolerating diet or fluids, pain not controlled by medications prescribed. Discharge Disposition: HOME SELF-CARE
[2020-09-18 08:24] LABS: Anabasine Urine <2.0 ng/mL (<2.0)
== END 2020-09-15 12:55 | disposition home or self-care (01) ==
LOC: OR 10:15 → 6PED 15:46 → OR 09-15 08:55 → 6PED 09-15 08:55
PROVIDERS: ADMIT Surgery Plastic and Reconstructive Surgery; ATTEND Surgery Plastic and Reconstructive Surgery
DX: K44.0 Diaphragmatic hernia with obstruction, without gangrene (principal); K21.9 Gastro-esophageal reflux disease without esophagitis; K22.4 Dyskinesia of esophagus; E78.5 Hyperlipidemia, unspecified; J44.9 Chronic obstructive pulmonary disease, unspecified; I11.9 Hypertensive heart disease without heart failure; I25.10 Atherosclerotic heart disease of native coronary artery without angina pectoris; Z72.0 Tobacco use; Z79.82 Long term (current) use of aspirin; Z80.8 Family history of malignant neoplasm of other organs or systems; Z82.49 Family history of ischemic heart disease and other diseases of the circulatory system; Z85.51 Personal history of malignant neoplasm of bladder; Z86.711 Personal history of pulmonary embolism; Z90.710 Acquired absence of both cervix and uterus
CPT/HCPCS: 43233; 43282; S2900; 64461; 74018; 80048; 80053; 80323; 81003; 85025; 94640

== ENCOUNTER → 2020-10-08 | Outpatient (CLI) | payer BC ==
[2020-10-08 19:55] LABS: Basophils # (A) 0.09 X 10*3/uL (0.00-0.10); Basophils % (A) 0.8 %; Eosinophils # (A) 0.34 X 10*3/uL (0.04-0.35); Eosinophils % (A) 3.1 %; HCT 44.2 % (37.2-46.3); HGB 14.3 g/dL (12.0-15.0); Lymphocytes # (A) 4.06 X 10*3/uL (0.90-5.00); Lymphocytes % (A) 36.5 %; MCH 28.4 pg (27.0-32.0); MCHC 32.4 g/dL (32.0-37.0); MCV 87.7 fL (80.0-97.0); Mean Platelet Volume 10.3 fL (9.5-12.2); Monocytes # (A) 0.71 X 10*3/uL (0.20-1.00); Monocytes % (A) 6.4 %; Neutrophils # (A) 5.88 X 10*3/uL (1.80-7.70); Neutrophils % (A) 52.8 %; Platelet Count 412 X 10*3/uL (140-440); RBC 5.04 X 10*6/uL (4.10-5.20); WBC 11.13 X 10*3/uL (4.50-10.00)
[2020-10-11 08:40] LABS: Anabasine Urine <2.0 ng/mL (<2.0)
== END | disposition home or self-care (01) ==
LOC: LABWHC1 15:08
PROVIDERS: ATTEND Surgery Plastic and Reconstructive Surgery
DX: F17.200 Nicotine dependence, unspecified, uncomplicated (principal); D72.829 Elevated white blood cell count, unspecified
CPT/HCPCS: 36415; 80323; 85025

== ENCOUNTER → 2020-10-25 | Outpatient (CLI) | payer BC ==
--- NOTE | 2020-10-25 09:07 | FL ---
EXAMINATION TYPE: FL barium swallow DATE OF EXAM: 10/25/2020 COMPARISON: 04/11/2020 HISTORY: Hiatal hernia TECHNIQUE: Single contrast technique was utilized to evaluate the esophagus. FINDINGS: Esophagus dilates to normal caliber has normal contour the gastroesophageal junction. Gastr oesophageal junction is status post Conner fundoplication and has moderate has seen passing through t his region. However, widely patent opening is evident. IMPRESSION: 1. Moderate hesitancy of contrast passing through the niece and fundoplication. Persistent stenosis however is not evident.
== END | disposition home or self-care (01) ==
LOC: RADUSWWP 07:44
PROVIDERS: ATTEND Surgery Plastic and Reconstructive Surgery
DX: K44.9 Diaphragmatic hernia without obstruction or gangrene (principal)
CPT/HCPCS: 74220

== ENCOUNTER 2020-11-14 09:11 | Day surgery (SDC) | payer BC ==
[2020-11-12 09:27] VITALS: BMI 27.4
[~2020-11-14 09:11] MED LIST changes: -ACETAMINOPHEN TAB 500 MG TAB PO PRN; -DEXAMETHASONE SOD PHOSPHATE 4 MG/ML 1 ML VIAL IV ONE; -GABAPENTIN 300 MG CAP PO PRN; -HEPARIN SODIUM,PORCINE 5,000 UNIT/ML 1 ML VIAL SQ PRN; -HYDROmorphone 0.5 MG/0.5 ML SYRINGE IVP PRN; +LACTATED RINGERS 1,000 ML IV SCH; +LIDOCAINE 1% (10MG/ML) FOR IV START INTRADERMA PRN; -MELOXICAM 7.5 MG TAB PO PRN; -MIDAZOLAM 2 MG/2 ML VIAL IV PRN; -ONDANSETRON 4 MG/2 ML VIAL IVP ONE; -SCOPOLAMINE 1.5MG/72HR PATCH TRANSDERM ONE
--- NOTE | 2020-11-14 09:11 | P.GSHP ---
History of Present Illness H&P Date: 11/14/20 CHIEF COMPLAINT: Esophageal stricture HISTORY OF PRESENT ILLNESS: The patient is a 60-year-old female who presents reports dysphagia. Upper endoscopy was offered for further evaluation and management. PAST MEDICAL HISTORY: Please see list. PAST SURGICAL HISTORY: Please see list. MEDICATIONS: Please see list. ALLERGIES: Please see list. SOCIAL HISTORY: No illicit drug use FAMILY HISTORY: No reports of Crohn disease or ulcerative colitis. REVIEW OF ORGAN SYSTEMS: CONSTITUTIONAL: No reports of fevers or chills. GI: Denies any blood in stools or constipation. PHYSICAL EXAM: VITAL SIGNS: Stable GENERAL: Well-developed and pleasant in no acute distress. HEENT: No scleral icterus. Extraocular movements grossly intact. Moist buccal mucosa. NECK: Supple without lymphadenopathy. CHEST: Unlabored respirations. Equal bilateral excursions. CARDIOVASCULAR: Regular rate and rhythm. Distal 2+ pulses. ABDOMEN: Soft, nondistended. MUSCULOSKELETAL: No clubbing, cyanosis, or edema. ASSESSMENT: 1. Esophageal stricture PLAN: 1. Recommend proceeding with an upper endoscopy with rigid dilators. Past Medical History Past Medical History: Cancer, COPD, Hyperlipidemia, Hypertension, Osteoarthritis (OA), Pulmonary Embolus (PE), Vascular Disorder Additional Past Medical History / Comment(s): "feels like stuff is getting stuck", Hx Bladder cancer- post surgical now. PE 2014. intermittent Pain in lt leg, discoloration in great toe. History of Any Multi-Drug Resistant Organisms: None Reported Past Surgical History: Appendectomy, Bladder Surgery, Breast Surgery, Cholecystectomy, Hysterectomy Additional Past Surgical History / Comment(s): bladder surgery to remove cancer. 08/26/19 peripheral Angiography,. cysts on lt breast removed, sinus surgery, left femoral stent 05/2019 Past Anesthesia/Blood Transfusion Reactions: No Reported Reaction Smoking Status: Former smoker - Past Family History Mother Family Medical History: Liver Disease Additional Family Medical History / Comment(s): liver cirrhosis Father Family Medical History: Myocardial Infarction ([place]) Brother(s) Family Medical History: Cancer Additional Family Medical History / Comment(s): LUNG AND BRAIN CANCER Medications and Allergies Home Medications Medication Instructions Recorded Confirmed Type Aspirin 81 mg PO HS 08/25/19 11/12/20 History Clopidogrel [Plavix] 75 mg PO HS 08/25/19 11/12/20 History Metoprolol Succinate [Toprol XL] 25 mg PO HS 08/25/19 11/12/20 History Rosuvastatin Calcium [Crestor] 40 mg PO HS 08/25/19 11/12/20 History Allergies Allergy/AdvReac Type Severity Reaction Status Date / Time atorvastatin Allergy SEVERE Verified 11/12/20 09:20 HEARTBURN Penicillins Allergy Rash/Hives/ Verified 11/12/20 09:20 Nausea
[2020-11-14 09:27] VITALS: RESP 16; TEMP 97.4
[2020-11-14] MEDS ORDERED: PROPOFOL 10 MG/ML 20 ML VIAL IV ONE (10:25)
[2020-11-14] MEDS ORDERED: LIDOCAINE 1% INJ 10MG/ML (20 ML MDV) ONE (10:25)
--- NOTE | 2020-11-14 10:53 | P.PCN ---
Date of Procedure: 11/14/20 Description of Procedure: PREOPERATIVE DIAGNOSIS: Dysphagia. Gastroesophageal reflux disease Chronic obstructive pulmonary disease POSTOPERATIVE DIAGNOSIS: Esophageal stricture, upper Dysphagia. Gastroesophageal reflux disease Chronic obstructive pulmonary disease Esophageal stricture, distal OPERATION: Esophagogastroduodenoscopy with rigid dilator over the guidewire 54 Fr. Esophagogastroduodenoscopy with cold forceps biopsies along antrum SURGEON: Cheryl Jacob MD ANESTHESIA: MAC. INDICATIONS: The patient is a 60-year-old female who presents with a history of dysphagia. Benefits and risks of the procedure were described. Informed consent was obtained. DESCRIPTION: The patient was brought into the endoscopy suite and laid in the left lateral decubitus position. After a timeout was confirmed, the procedure was initiated. An Olympus gastroscope was passed and the stomach was entered. Mild gastritis was identified. The scope was advanced to the duodenum which was unremarkable. Retroflexion the scope confirmed a Hill grade 1 lower esophageal valve. Next using an [place] rigid dilator, a guidewire was placed through the pediatric gastroscope. Next the scope was withdrawn. A 54-Bruneian rigid [place]an dilator was passed carefully along the posterior oropharynx to 50 cm a nd left in place for 2-3 minutes stretch. The dilator was withdrawn including the guidewire. The scope was reentered along the posterior oropharynx with superficial tear of the upper esophageal sphincter without full-thickness injury. Next, inflammation of the antrum was identified with cold forceps biopsies obtained. No full-thickness injury was encountered. The GI tract was desufflated. The patient tolerated the procedure well. FINDINGS: Squamocolumnar junction unremarkable Upper esophageal stricture Distal esophageal stricture R[place]andan rigid dilator 57-Bruneian completed. No hiatus hernia Hill grade 1 lower esophageal valve. No LA grade A esophagitis. RECOMMENDATIONS: Upper endoscopy as needed Plan - Discharge Summary Discharge Rx Participant: No New Discharge Prescriptions: New Acetaminophen Oral Susp [Tylenol Oral Susp] 500 mg PO Q4-6H PRN #400 ml PRN Reason: Pain Continue Rosuvastatin Calcium [Crestor] 40 mg PO HS Metoprolol Succinate [Toprol XL] 25 mg PO HS Clopidogrel [Plavix] 75 mg PO HS Aspirin 81 mg PO HS Discharge Medication List Aspirin 81 mg PO HS 08/25/19 [History] Clopidogrel [Plavix] 75 mg PO HS 08/25/19 [History] Metoprolol Succinate [Toprol XL] 25 mg PO HS 08/25/19 [History] Rosuvastatin Calcium [Crestor] 40 mg PO HS 08/25/19 [History] Acetaminophen Oral Susp [Tylenol Oral Susp] 500 mg PO Q4-6H PRN #400 ml 11/14/20 [Rx] Follow up Appointment(s)/Referral(s): Cheryl Jacob MD [STAFF PHYSICIAN] - 11/20/20 Patient Instructions/Handouts: Esophageal Dilation (DC) Activity/Diet/Wound Care/Special Instructions: Expect sore throat. Use of water gargle twice daily. Take Tylenol as needed for pain. Avoid acidic beverages including orange juice. Start Plavix and Aspirin 11/16/20 Discharge Disposition: HOME SELF-CARE
[2020-11-14 11:15] VITALS: BP 109/73; PULSE 76
== END 2020-11-14 11:40 | disposition home or self-care (01) ==
LOC: ORWHC2ENDO 09:11
PROVIDERS: ATTEND Surgery Plastic and Reconstructive Surgery
DX: K22.2 Esophageal obstruction (principal); K21.9 Gastro-esophageal reflux disease without esophagitis; K29.70 Gastritis, unspecified, without bleeding; J44.9 Chronic obstructive pulmonary disease, unspecified; E78.5 Hyperlipidemia, unspecified; I10 Essential (primary) hypertension; M19.90 Unspecified osteoarthritis, unspecified site; Z86.711 Personal history of pulmonary embolism; Z85.51 Personal history of malignant neoplasm of bladder; Z90.89 Acquired absence of other organs; Z90.49 Acquired absence of other specified parts of digestive tract; Z90.710 Acquired absence of both cervix and uterus; Z87.891 Personal history of nicotine dependence; Z95.820 Peripheral vascular angioplasty status with implants and grafts; Z83.79 Family history of other diseases of the digestive system; Z82.49 Family history of ischemic heart disease and other diseases of the circulatory system; Z80.1 Family history of malignant neoplasm of trachea, bronchus and lung; Z80.8 Family history of malignant neoplasm of other organs or systems; Z79.02 Long term (current) use of antithrombotics/antiplatelets; Z79.82 Long term (current) use of aspirin; Z79.899 Other long term (current) drug therapy; Z88.0 Allergy status to penicillin; Z88.8 Allergy status to other drugs, medicaments and biological substances
CPT/HCPCS: 43239; 43248; J2001; J2704; 43249

== ENCOUNTER → 2021-04-05 | Outpatient (CLI) | payer BC ==
[2021-04-05 19:39] LABS: Chol/HDL Ratio 4.35
== END | disposition home or self-care (01) ==
LOC: LABWHC1 08:38
PROVIDERS: ATTEND Internal Medicine Cardiovascular Disease
DX: E78.2 Mixed hyperlipidemia (principal)
CPT/HCPCS: 36415; 80061; 84450; 84460

== ENCOUNTER 2021-12-12 08:26 | Day surgery (SDC) | payer BC ==
[2021-12-11 12:20] VITALS: BMI 26.9
--- NOTE | 2021-12-12 07:52 | P.GSHP ---
History of Present Illness H&P Date: 12/12/21 CHIEF COMPLAINT: GERD and colon screen HISTORY OF PRESENT ILLNESS: The patient is a 61-year-old female who presents with gastroesophageal reflux disease and need for colon screen. Upper and lower endoscopy were offered for further evaluation and management. PAST MEDICAL HISTORY: Please see list. PAST SURGICAL HISTORY: Please see list. MEDICATIONS: Please see list. ALLERGIES: Please see list. SOCIAL HISTORY: No illicit drug use FAMILY HISTORY: No reports of Crohn disease or ulcerative colitis. REVIEW OF ORGAN SYSTEMS: CONSTITUTIONAL: No reports of fevers or chills. GI: Denies any blood in stools or constipation. PHYSICAL EXAM: VITAL SIGNS: Stable GENERAL: Well-developed pleasant in no acute distress. HEENT: No scleral icterus. Extraocular movements grossly intact. Moist buccal mucosa. NECK: Supple without lymphadenopathy. CHEST: Unlabored respirations. Equal bilateral excursions. CARDIOVASCULAR: Regular rate and rhythm. Distal 2+ pulses. ABDOMEN: Soft, nondistended. MUSCULOSKELETAL: No clubbing, cyanosis, or edema. ASSESSMENT: 1. Gastroesophageal reflux disease 2. Colon screen. PLAN: 1. Recommend proceeding with an upper and lower endoscopy Past Medical History Past Medical History: Cancer, COPD, Hyperlipidemia, Hypertension, Osteoarthritis (OA), Pulmonary Embolus (PE), Vascular Disorder Additional Past Medical History / Comment(s): "feels like stuff is getting stuck", Hx Bladder cancer- post surgical now. PE 2014. intermittent Pain in lt leg, discoloration in great toe. History of Any Multi-Drug Resistant Organisms: None Reported Past Surgical History: Appendectomy, Bladder Surgery, Breast Surgery, Cholecystectomy, Hysterectomy Additional Past Surgical History / Comment(s): bladder surgery to remove cancer. 08/26/19 peripheral Angiography, cysts on lt breast removed, sinus surgery, left femoral stent 05/2019, COLONOSCOPY/EGD Past Anesthesia/Blood Transfusion Reactions: No Reported Reaction Smoking Status: Current every day smoker - Past Family History Mother Family Medical History: Liver Disease Additional Family Medical History / Comment(s): liver cirrhosis Father Family Medical History: Myocardial Infarction ([place]) Brother(s) Family Medical History: Cancer Additional Family Medical History / Comment(s): LUNG AND BRAIN CANCER Medications and Allergies Home Medications Medication Instructions Recorded Confirmed Type Aspirin 81 mg PO HS 08/25/19 12/11/21 History Clopidogrel [Plavix] 75 mg PO HS 08/25/19 12/11/21 History Metoprolol Succinate [Toprol XL] 25 mg PO HS 08/25/19 12/11/21 History Rosuvastatin Calcium [Crestor] 40 mg PO HS 08/25/19 12/11/21 History Acetaminophen Oral Susp [Tylenol 500 mg PO Q4-6H PRN #400 ml 11/14/20 12/11/21 Rx Oral Susp] Allergies Allergy/AdvReac Type Severity Reaction Status Date / Time atorvastatin Allergy SEVERE Verified 10/19/21 15:27 HEARTBURN Penicillins Allergy Rash/Hives/ Verified 12/11/21 12:09 Nausea
[~2021-12-12 08:26] MED LIST changes: -LIDOCAINE 1% (10MG/ML) FOR IV START INTRADERMA PRN
[2021-12-12 09:01] VITALS: RESP 16; TEMP 97.5
[2021-12-12] MEDS ORDERED: LIDOCAINE 1% (10MG/ML) FOR IV START INTRADERMA ONE (09:12)
[2021-12-12] MEDS ORDERED: PROPOFOL 10 MG/ML 100 ML VIAL IV ONE (09:49)
[2021-12-12] MEDS ORDERED: LIDOCAINE 2% INJ 20 MG/ML (2 ML VIAL) ONE (09:49)
--- NOTE | 2021-12-12 10:02 | P.PCN ---
Date of Procedure: 12/12/21 Description of Procedure: PREOPERATIVE DIAGNOSIS: Gastroesophageal reflux disease. POSTOPERATIVE DIAGNOSIS: Gastroesophageal reflux disease. Gastritis. Diaphragmatic hiatal hernia, recurrent OPERATION: Esophagogastroduodenoscopy with biopsies along antrum. SURGEON: Cheryl Jacob MD ANESTHESIA: MAC. INDICATIONS: The patient is a 61-year-old female who presents with reflux disease. Benefits and risks of the procedure were described. Informed consent was obtained. DESCRIPTION: The patient was brought into the endoscopy suite and laid in the left lateral decubitus position. An Olympus gastroscope was passed along the posterior oropharynx down to the distal esophagus where the squamocolumnar junction was encountered at 34 cm from the incisors. The stomach was entered and no bile reflux was found. Additional findings are listed below. Biopsies with cold forceps were obtained of the antrum. The first through third portion of the duodenum was examined. Retroflexion of the scope confirmed Hill grade 2 lower esophageal valve. The squamocolumnar junction demonstrated LA grade B erosive es ophagitis. The stomach was desufflated. The patient tolerated the procedure well. FINDINGS: Squamocolumnar junction 34 cm from the incisors. Diaphragmatic hiatus at 36 cm. Hiatal hernia, 2 cm Hill grade 2 lower esophageal valve. LA grade B erosive esophagitis. No active duodenitis. Chronic gastritis RECOMMENDATIONS: Upper endoscopy as needed.
--- NOTE | 2021-12-12 10:31 | P.PCN ---
Date of Procedure: 12/12/21 Description of Procedure: PREOPERATIVE DIAGNOSIS: Personal history of colon polyps POSTOPERATIVE DIAGNOSIS: Tubular adenoma hepatic flexure Tubular adenoma transverse colon Tubular adenoma rectum Sigmoid diverticulosis Internal hemorrhoids, grade 2 OPERATION: Colonoscopy to the ileocecal valve and appendiceal orifice, cecum Colonoscopy with hot snare polypectomy Colonoscopy with cold forceps biopsy SURGEON: Cheryl Jacob MD. ANESTHESIA: MAC. INDICATIONS: The patient is an 66-year-old male who presents family history of malignant colon polyps and personal history of colon polyps. Last colonoscopy 5 years. Benefits and risks were described and informed consent was obtained. DESCRIPTION OF PROCEDURE: The patient had undergone Sutab prep. The patient had been brought into the operating room and laid in the left lateral decubitus position. After adequate intravenous sedation, the rectum was examined with 2% lidocaine jelly. The prostate was unremarkable. External hemorrhoids were encountered. The rectal tone was within normal limits. No lesions were palpated in the rectal vault. An Olympus colonoscope was advanced until the cecum, ileocecal valve and appendiceal orifice were clearly viewed. The prep was fair. Sigmoid diverticulosis was encountered. Colonic polyps were found and removed. No evidence of focal colitis was found. Retroflexion of the scope demonstrated grade 2 internal hemorrhoids without active bleeding or inflammation. The colon was desufflated. The patient had tolerated the procedure well. Withdrawal time was over 6 minutes. FINDINGS: Aronchick preparation quality scale 3 (1-5) Internal hemorrhoids, grade 3 with recent inflammation and bleeding External hemorrhoids, grade 4. No arteriovenous malformations. Sigmoid diverticulosis Removal of 5 polyps: - Snare polypectomy 10 cm from the anal verge, 5 mm tubulovillous adenoma polyp, rectum - Snare polypectomy transverse colon 2, 6 to 8 mm flat villous adenoma polyp. - Snare polypectomy hepatic flexure 2, 4-8 mm flat villous adenoma polyp. No focal colitis. RECOMMENDATIONS: Given severity of tubular adenomas, recommend repeat colonoscopy 2 years, 2023 Plan - Discharge Summary Discharge Rx Participant: No New Discharge Prescriptions: Continue Rosuvastatin Calcium [Crestor] 40 mg PO HS Metoprolol Succinate [Toprol XL] 25 mg PO HS Clopidogrel [Plavix] 75 mg PO HS Aspirin 81 mg PO HS Acetaminophen Oral Susp [Tylenol] 500 mg PO Q4-6H PRN #400 ml PRN Reason: Pain Discharge Medication List Aspirin 81 mg PO HS 08/25/19 [History] Clopidogrel [Plavix] 75 mg PO HS 08/25/19 [History] Metoprolol Succinate [Toprol XL] 25 mg PO HS 08/25/19 [History] Rosuvastatin Calcium [Crestor] 40 mg PO HS 08/25/19 [History] Acetaminophen Oral Susp [Tylenol] 500 mg PO Q4-6H PRN #400 ml 11/14/20 [Rx] Follow up Appointment(s)/Referral(s): Cheryl Jacob MD [STAFF PHYSICIAN] - 01/07/22 Patient Instructions/Handouts: Hiatal Hernia (DC), Colorectal Polyps (GEN), Diverticulosis Diet (GEN), Diverticulosis (DC) Activity/Diet/Wound Care/Special Instructions: Repeat colonoscopy in 2 years, 2023 Discharge Disposition: HOME SELF-CARE
[2021-12-12 10:52] VITALS: BP 120/81; PULSE 75
== END 2021-12-12 11:09 | disposition home or self-care (01) ==
LOC: ORWHC2ENDO 08:26
PROVIDERS: ATTEND Surgery Plastic and Reconstructive Surgery
DX: Z12.11 Encounter for screening for malignant neoplasm of colon (principal); D12.3 Benign neoplasm of transverse colon; K63.5 Polyp of colon; K44.9 Diaphragmatic hernia without obstruction or gangrene; K57.30 Diverticulosis of large intestine without perforation or abscess without bleeding; K29.50 Unspecified chronic gastritis without bleeding; J44.9 Chronic obstructive pulmonary disease, unspecified; K21.9 Gastro-esophageal reflux disease without esophagitis; K64.1 Second degree hemorrhoids; K64.4 Residual hemorrhoidal skin tags; E78.5 Hyperlipidemia, unspecified; Z87.19 Personal history of other diseases of the digestive system; I10 Essential (primary) hypertension; M19.90 Unspecified osteoarthritis, unspecified site; F17.210 Nicotine dependence, cigarettes, uncomplicated; Z86.711 Personal history of pulmonary embolism; Z86.718 Personal history of other venous thrombosis and embolism; Z79.01 Long term (current) use of anticoagulants; Z85.51 Personal history of malignant neoplasm of bladder; Z90.49 Acquired absence of other specified parts of digestive tract; Z90.710 Acquired absence of both cervix and uterus; Z98.890 Other specified postprocedural states; Z83.79 Family history of other diseases of the digestive system; Z82.49 Family history of ischemic heart disease and other diseases of the circulatory system; Z80.1 Family history of malignant neoplasm of trachea, bronchus and lung; Z80.8 Family history of malignant neoplasm of other organs or systems; Z79.02 Long term (current) use of antithrombotics/antiplatelets; Z79.82 Long term (current) use of aspirin; Z79.899 Other long term (current) drug therapy; Z88.0 Allergy status to penicillin; Z88.8 Allergy status to other drugs, medicaments and biological substances
CPT/HCPCS: 88305; 45385; 43239; J2704; J2001

== ENCOUNTER 2022-05-26 14:46 | Emergency (ER) | payer BC ==
[2022-05-26 15:43] LABS: Basophils # (A) 0.1 k/uL (0-0.2); Basophils % (A) 1 %; Eosinophils # (A) 0.3 k/uL (0-0.7); Eosinophils % (A) 3 %; HCT 42.4 % (34.0-46.0); HGB 14.4 gm/dL (11.4-16.0); Lymphocytes # (A) 4.1 k/uL (1.0-4.8); Lymphocytes % (A) 39 %; MCH 29.1 pg (25.0-35.0); MCHC 33.8 g/dL (31.0-37.0); MCV 86.1 fL (80.0-100.0); Mean Platelet Volume 7.9; Monocytes # (A) 0.5 k/uL (0-1.0); Monocytes % (A) 4 %; Neutrophils # (A) 5.3 k/uL (1.3-7.7); Neutrophils % (A) 50 %; Platelet Count 347 k/uL (150-450); RBC 4.93 m/uL (3.80-5.40); RDW 14.5 % (11.5-15.5); WBC 10.6 k/uL (3.8-10.6)
[2022-05-26 15:54] LABS: Partial Thromboplastin Time 24.4 sec (22.0-30.0); Prothrombin Time 10.9 sec (9.0-12.0)
[2022-05-26 15:56] LABS: Albumin 4.7 g/dL (3.5-5.0); Calcium 9.8 mg/dL (8.4-10.2); Potassium 4.2 mmol/L (3.5-5.1); Total Bilirubin 0.6 mg/dL (0.2-1.3); Total Protein 7.3 g/dL (6.3-8.2)
--- NOTE | 2022-05-26 16:01 | XR ---
EXAMINATION TYPE: XR chest 2V DATE OF EXAM: 05/26/2022 COMPARISON: 04/26/2018 TECHNIQUE: PA and lateral views submitted. HISTORY: Dizziness FINDINGS: The lungs are clear and there is no pneumothorax, pleural effusion, or focal pneumonia. There are 2 nodules in the left upper lobe measuring approximately a centimeter hyperinflation suggests COPD. He art size normal with no overt failure. Ectasia of the aorta with atherosclerotic change. Degenerative changes of the spine. IMPRESSION: 1. COPD correlate for chronic pulmonary interstitial fibrosis. 2. There are two suspected left upper lobe pulmonary nodules measuring approximately 1 cm recommend C T of the chest..
[2022-05-26 16:17] LABS: Appearance,Urine Clear (Clear); Bilirubin,Urine Negative (Negative); Blood,Urine Negative (Negative); Color,Urine Yellow; Glucose,Urine (UA) Negative (Negative); Ketones,Urine Negative (Negative); Leukocyte Esterase,Urine Negative (Negative); Nitrite,Urine Negative (Negative); PH, Urine 5.5 (5.0-8.0); Protein,Urine Negative (Negative); Specific Gravity,Urine 1.011 (1.001-1.035); Urobilinogen,Urine <2.0 mg/dL (<2.0)
--- NOTE | 2022-05-26 16:28 | ED ---
Dizziness HPI - General Chief Complaint: Dizziness Stated Complaint: Urgent care sent,possible heart attack Time Seen by Provider: 05/26/22 15:07 Source: patient Mode of arrival: ambulatory - History of Present Illness Initial Comments: Patient is a 61 year-old female who presents to the emergency department from urgent care for evaluation of dizziness. Patient states she had an episode of dizziness last night which lasted for about 7 minutes. She felt as if the room was spinning and felt lightheaded. Patient states she felt "foggy" through the night and this morning. Denies syncope. States she went to urgent care for a work note to return to work. With patient's extensive cardiac history she was sent to the emergency department for ACS rule out. Patient does not have chest pain or shortness of breath. She denies fever, chills, upper respiratory symptoms, palpitations, nausea, vomiting, burning with urination, diarrhea. Does admit to smoker's cough which is unchanged. Smokes half pack a day for 40 years. Denies illicit drug use. Denies use of new medications. - Related Data Home Medications Medication Instructions Recorded Confirmed Aspirin 81 mg PO HS 08/25/19 05/26/22 Clopidogrel [Plavix] 75 mg PO HS 08/25/19 05/26/22 Metoprolol Succinate [Toprol XL] 25 mg PO HS 08/25/19 05/26/22 Rosuvastatin Calcium [Crestor] 40 mg PO HS 08/25/19 05/26/22 Albuterol Sulfate [Albuterol 2 puff PO RT-Q6H 05/26/22 05/26/22 Sulfate Hfa] Allergies Allergy/AdvReac Type Severity Reaction Status Date / Time atorvastatin Allergy SEVERE Verified 05/26/22 16:36 HEARTBURN Penicillins Allergy Rash/Hives/ Verified 05/26/22 16:36 Nausea Review of Systems ROS Statement: Those systems with pertinent positive or pertinent negative responses have been documented in the HPI. ROS Other: All systems not noted in ROS Statement are negative. Past Medical History Past Medical History: Coronary Artery Disease (CAD), Cancer, Chest Pain / Angina, COPD, Hyperlipidemia, Hypertension, Myocardial Infarction ([place]), Osteoarthritis (OA), Pulmonary Embolus (PE), Vascular Disorder Additional Past Medical History / Comment(s): "feels like stuff is getting stuck", Hx Bladder cancer- post surgical now. PE 2015. intermittent Pain in lt leg, discoloration in great toe. History of Any Multi-Drug Resistant Organisms: None Reported Past Surgical History: Appendectomy, Bladder Surgery, Breast Surgery, C holecystectomy, Heart Catheterization, Heart Catheterization With Stent, Hysterectomy Additional Past Surgical History / Comment(s): bladder surgery to remove cancer. 08/26/19 peripheral Angiography, cysts on lt breast removed, sinus surgery, left femoral stent 05/2019, COLONOSCOPY/EGD Past Anesthesia/Blood Transfusion Reactions: No Reported Reaction Past Psychological History: No Psychological Hx Reported Smoking Status: Current every day smoker - Past Family History Mother Family Medical History: Liver Disease Additional Family Medical History / Comment(s): liver cirrhosis Father Family Medical History: Myocardial Infarction ([place]) Brother(s) Family Medical History: Cancer Additional Family Medical History / Comment(s): LUNG AND BRAIN CANCER General Exam General appearance: alert, in no apparent distress Head exam: Present: atraumatic, normocephalic, normal inspection Neck exam: Present: normal inspection. Absent: tenderness, meningismus, lymphadenopathy Respiratory exam: Present: normal lung sounds bilaterally. Absent: respiratory distress, wheezes, rales, rhonchi, stridor Cardiovascular Exam: Present: regular rate, normal rhythm, normal heart sounds. Absent: systolic murmur, diastolic murmur, rubs, gallop, clicks Neurological exam: Present: alert, oriented X3, CN II-XII intact Psychiatric exam: Present: normal affect, normal mood Skin exam: Present: warm, dry, intact, normal color. Absent: rash Course Vital Signs 05/26/22 05/26/22 14:55 17:27 Temperature 97.7 F 97.8 F Pulse Rate 70 61 Respiratory 20 16 Rate Blood Pressure 141/91 116/70 O2 Sat by Pulse 99 99 Oximetry EKG Findings - EKG Comments: EKG Findings:: EKG taken at 15:06, interpreted by myself. Sinus rhythm, no new ST segment or T-wave abnormalities. Ventricular rate 76. ND interval 137. QRS duration 100. QTc 424 Medical Decision Making - Medical Decision Making This is a 61 year-old female presenting for evaluation of dizziness and lightheadedness last night. Patient well appearing and in no apparent distress. Again patient does not have chest pain or shortness of breath. EKG obtained interpreted by me which shows sinus rhythm with no new ST segment or T-wave abnormality. Laboratory studies obtained which are relatively unremarkable. Troponin is within normal limits. Chest xray obtained and intepreted by me which shows COPD and 2 suspected left upper left upper lobe pulmonary nodules approx 1 cm. Results discussed with patient. We discussed incidental x-ray findings. With long smoking history it is important patient follows up with primary care for CT of the chest. Patient verbalizes understanding and is cleared medically for discharge. Dr. Watt is my attending. - Lab Data Result diagrams: 05/26/22 15:12 05/26/22 15:12 Lab Results 05/26/22 05/26/22 05/26/22 Range/Units 15:12 15:12 15:12 WBC 10.6 (3.8-10.6) k/uL RBC 4.93 (3.80-5.40) m/uL Hgb 14.4 (11.4-16.0) gm/dL Hct 42.4 (34.0-46.0) % MCV 86.1 (80.0-100.0) fL MCH 29.1 (25.0-35.0) pg MCHC 33.8 (31.0-37.0) g/dL RDW 14.5 (11.5-15.5) % Plt Count 347 (150-450) k/uL MPV 7.9 Neutrophils % 50 % Lymphocytes % 39 % Monocytes % 4 % Eosinophils % 3 % Basophils % 1 % Neutrophils # 5.3 (1.3-7.7) k/uL Lymphocytes # 4.1 (1.0-4.8) k/uL Monocytes # 0.5 (0-1.0) k/uL Eosinophils # 0.3 (0-0.7) k/uL Basophils # 0.1 (0-0.2) k/uL PT 10.9 (9.0-12.0) sec INR 1.0 (<1.2) APTT 24.4 (22.0-30.0) sec Sodium 139 (137-145) mmol/L Potassium 4.2 (3.5-5.1) mmol/L Chloride 108 H (98-107) mmol/L Carbon Dioxide 21 L (22-30) mmol/L Anion Gap 10 mmol/L BUN 11 (7-17) mg/dL Creatinine 0.89 (0.52-1.04) mg/dL Est GFR (CKD-EPI)AfAm 82 (>60 ml/min/1.73 sqM) Est GFR (CKD-EPI)NonAf 71 (>60 ml/min/1.73 sqM) Glucose 94 (74-99) mg/dL Calcium 9.8 (8.4-10.2) mg/dL Magnesium 2.0 (1.6-2.3) mg/dL Total Bilirubin 0.6 (0.2-1.3) mg/dL AST 49 H (14-36) U/L ALT 41 H (4-34) U/L Alkaline Phosphatase 124 (38-126) U/L Troponin I (0.000-0.034) ng/mL Total Protein 7.3 (6.3-8.2) g/dL Albumin 4.7 (3.5-5.0) g/dL Urine Color Urine Appearance (Clear) Urine pH (5.0-8.0) Ur Specific [place] (1.001-1.035) Urine Protein (Negative) Urine Glucose (UA) (Negative) Urine Ketones (Negative) Urine Blood (Negative) Urine Nitrite (Negative) Urine Bilirubin (Negative) Urine Urobilinogen (<2.0) mg/dL Ur Leukocyte Esterase (Negative) 05/26/22 05/26/22 Range/Units 15:12 15:30 WBC (3.8-10.6) k/uL RBC (3.80-5.40) m/uL Hgb (11.4-16.0) gm/dL Hct (34.0-46.0) % MCV (80.0-100.0) fL MCH (25.0-35.0) pg MCHC (31.0-37.0) g/dL RDW (11.5-15.5) % Plt Count (150-450) k/uL MPV Neutrophils % % Lymphocytes % % Monocytes % % Eosinophils % % Basophils % % Neutrophils # (1.3-7.7) k/uL Lymphocytes # (1.0-4.8) k/uL Monocytes # (0-1.0) k/uL Eosinophils # (0-0.7) k/uL Basophils # (0-0.2) k/uL PT (9.0-12.0) sec INR (<1.2) APTT (22.0-30.0) sec Sodium (137-145) mmol/L Potassium (3.5-5.1) mmol/L Chloride (98-107) mmol/L Carbon Dioxide (22-30) mmol/L Anion Gap mmol/L BUN (7-17) mg/dL Creatinine (0.52-1.04) mg/dL Est GFR (CKD-EPI)AfAm (>60 ml/min/1.73 sqM) Est GFR (CKD-EPI)NonAf (>60 ml/min/1.73 sqM) Glucose (74-99) mg/dL Calcium (8.4-10.2) mg/dL Magnesium (1.6-2.3) mg/dL Total Bilirubin (0.2-1.3) mg/dL AST (14-36) U/L ALT (4-34) U/L Alkaline Phosphatase (38-126) U/L Troponin I <0.012 (0.000-0.034) ng/mL Total Protein (6.3-8.2) g/dL Albumin (3.5-5.0) g/dL Urine Color Yellow Urine Appearance Clear (Clear) Urine pH 5.5 (5.0-8.0) Ur Specific [place] 1.011 (1.001-1.035) Urine Protein Negative (Negative) Urine Glucose (UA) Negative (Negative) Urine Ketones Negative (Negative) Urine Blood Negative (Negative) Urine Nitrite Negative (Negative) Urine Bilirubin Negative (Negative) Urine Urobilinogen <2.0 (<2.0) mg/dL Ur Leukocyte Esterase Negative (Negative) Disposition Clinical Impression: Dizziness, Lightheadedness, Brain fog, Pulmonary nodule Disposition: HOME SELF-CARE Condition: Good Instructions (If sedation given, give patient instructions): Lightheadedness (ED), Dizziness (ED), Pulmonary Nodules (ED) Additional Instructions: Please follow up with primary care provider. Discuss the pulmonary nodules found on x-ray today. You will likely need further imaging with CT. Return to the emergency department if you experience new, concerning, or worsening symptoms. Is patient prescribed a controlled substance at d/c from ED?: No Referrals: Edmundo Lobato MD [Primary Care Provider] - 1-2 days Time of Disposition: 16:35
[2022-05-26 17:30] VITALS: BP 116/70; PULSE 61; RESP 16; TEMP 97.8
== END 2022-05-26 17:30 | disposition home or self-care (01) ==
LOC: EC 14:46
DX: R42 Dizziness and giddiness (principal); I11.9 Hypertensive heart disease without heart failure; I25.10 Atherosclerotic heart disease of native coronary artery without angina pectoris; C80.1 Malignant (primary) neoplasm, unspecified; I25.2 Old myocardial infarction; M19.90 Unspecified osteoarthritis, unspecified site; J44.9 Chronic obstructive pulmonary disease, unspecified; I26.99 Other pulmonary embolism without acute cor pulmonale; E78.5 Hyperlipidemia, unspecified; F17.200 Nicotine dependence, unspecified, uncomplicated; R41.840 Attention and concentration deficit; R91.1 Solitary pulmonary nodule; Z79.82 Long term (current) use of aspirin; Z79.811 Long term (current) use of aromatase inhibitors; Z79.02 Long term (current) use of antithrombotics/antiplatelets; Z88.0 Allergy status to penicillin; Z88.8 Allergy status to other drugs, medicaments and biological substances
CPT/HCPCS: 36415; 71046; 80053; 81003; 83735; 84484; 85025; 85610; 85730; 87635; 93005; 99284

== ENCOUNTER → 2022-06-19 | Outpatient (CLI) | payer BC ==
--- NOTE | 2022-06-19 13:40 | CT ---
EXAMINATION TYPE: CT chest w con DATE OF EXAM: 06/19/2022 COMPARISON: 04/26/2017 HISTORY: Abnormal lung galarza CT DLP: 438 mGycm Automated exposure control for dose reduction was used. CONTRAST: CT scan of the chest is performed with IV Contrast, patient injected with 100 mL of Isovue 300. FINDINGS: LUNGS: The medial Pleural-based 1.2 x 1.2 cm right upper lobe pulmonary nodule medially seen best on image #9 series 4. New 8mm nodule left upper lobe seen best on image 16 series 4. Adjacent groundglas s nodule measuring 1.2 cm image 16 series 4. No additional nodules seen. Mild upper lobe emphysematou s change. No evidence for consolidation or pleural effusion. MEDIASTINUM: There are no greater than 1 cm hilar or mediastinal lymph nodes. No pericardial effusi on is seen. Thoracic aorta is of normal caliber. The heart is not enlarged. UPPER ABDOMEN: No significant abnormality appreciated. OTHER: No additional significant abnormality is seen. IMPRESSION: 1. PET CT recommended for right upper lobe pulmonary nodule
== END | disposition home or self-care (01) ==
LOC: RADCTMAIN 12:49
PROVIDERS: ATTEND Family Medicine
DX: R91.8 Other nonspecific abnormal finding of lung field (principal)
CPT/HCPCS: 71260; Q9967

== ENCOUNTER → 2022-07-11 | Outpatient (CLI) | payer BC ==
--- NOTE | 2022-07-11 22:50 | PE ---
EXAMINATION TYPE: PET CT fusion skull to thigh DATE OF EXAM: 07/11/2022 CLINICAL INDICATION:Female, 61 years old with history of M16.0 Primary osteoarthritis of hip, left; TECHNIQUE: Following the intravenous administration of 11.61 mCi of F-18 FDG, whole body images are performed from the skull base to the midthigh. Images are reviewed on the computer in the coronal, axial, and sagittal planes. Reconstructed rotating images are created on independent workstation and reviewed on the computer. A non-contrast CT is performed in conjunction with the PET scan. Glucose level 89 mg/dL COMPARISON: CT 08/31/2020 CT abdomen, 06/19/2022 CT chest, PET/CT None, FINDINGS: Mediastinal SUV mean is 1.3. Hepatic parenchyma SUV mean is 2.0. SKULL BASE AND NECK: No suspicious radiotracer activity. CHEST, MEDIASTINUM, AND HILAR REGION: * 9 mm left upper lobe pulmonary nodule with increased radiotracer activity max SUV 2.1. * 12 mm right upper lobe mm pulmonary nodule without increased activity max SUV 1.0. ABDOMEN AND PELVIS: No suspicious radiotracer activity. OSSEOUS STRUCTURES: No suspicious radiotracer activity. OTHER CT: Mild paranasal sinuses mucosal thickening. Atherosclerosis of the arterial vasculature incl uding the carotid bifurcations and the coronary arteries. Bilateral iliac artery stents. Distal abdom inal aorta dilation up to 3.0 cm. The gallbladder surgically absent. Nonobstructing left renal calcul us versus vascular calcification measuring 3 mm. Bilateral femoral heads bone islands. IMPRESSION: * 9 mm left upper lobe pulmonary nodule with increased FDG activity concerning for malignancy. The r ight upper lobe pulmonary nodule does not demonstrate increased radiotracer activity. * No evidence for abnormal activity within the abdomen or pelvis .
== END | disposition home or self-care (01) ==
LOC: RADPETMAIN 14:16
PROVIDERS: ATTEND Internal Medicine Critical Care Medicine
DX: C67.9 Malignant neoplasm of bladder, unspecified (principal); R91.8 Other nonspecific abnormal finding of lung field
CPT/HCPCS: 78815; A9552

== ENCOUNTER → 2022-08-11 | Outpatient (CLI) | payer BC ==
[2022-08-11 12:07] LABS: Partial Thromboplastin Time 23.2 sec (22.0-30.0)
[2022-08-11 15:18] LABS: Basophils # (A) 0.11 X 10*3/uL (0.00-0.10); Eosinophils # (A) 0.22 X 10*3/uL (0.04-0.35); HCT 44.8 % (37.2-46.3); HGB 14.5 g/dL (12.0-15.0); Immature Grans, Automated 0.4 %; Lymphocytes # (A) 3.61 X 10*3/uL (0.90-5.00); Lymphocytes % (A) 32.2 %; MCHC 32.4 g/dL (32.0-37.0); MCV 86.7 fL (80.0-97.0); Mean Platelet Volume 10.3 fL (9.5-12.2); Monocytes # (A) 0.64 X 10*3/uL (0.20-1.00); Monocytes % (A) 5.7 %; NRBC Per 100 WBC 0 /100 WBCS (0.0-0.0); Neutrophils # (A) 6.59 X 10*3/uL (1.80-7.70); Neutrophils % (A) 58.7 %; Platelet Count 343 X 10*3/uL (140-440); RBC 5.17 X 10*6/uL (4.10-5.20); RDW 14.7 % (11.5-14.5); WBC 11.22 X 10*3/uL (4.50-10.00)
[2022-08-11 16:05] LABS: INR 0.9 (<1.2); Prothrombin Time 9.8 sec (9.0-12.0)
[2022-08-11 19:14] LABS: African American GFR (CKD) 70.9 (60.0-200.0); Non-African American GFR(CKD) 61.2 (60.0-200.0); Potassium 4.3 mmol/L (3.5-5.5)
[2022-08-11 20:04] LABS: Appearance,Urine Clear (Clear); Bilirubin,Urine Negative (Negative); Blood,Urine Negative (Negative); Color,Urine Yellow (Yellow); Ketones,Urine Negative (Negative); Nitrite,Urine Negative (Negative); PH, Urine 5.5 (5.0-8.0); Urobilinogen,Urine 0.2 (0.2,1.0)
== END | disposition home or self-care (01) ==
LOC: LABPAT 11:07
PROVIDERS: ATTEND Thoracic Surgery (Cardiothoracic Vascular Surgery)
DX: Z01.812 Encounter for preprocedural laboratory examination (principal); R91.8 Other nonspecific abnormal finding of lung field; R94.31 Abnormal electrocardiogram [ECG] [EKG]
CPT/HCPCS: 80051; 81003; 82565; 82947; 84520; 85025; 85610; 85730; 86850; 86900; 86901; 87086; 93005

== ENCOUNTER → 2022-12-04 | Outpatient (CLI) | payer BC ==
[2022-12-04 11:26] VITALS: BP 101/68; PULSE 86; RESP 18; TEMP 98.1
--- NOTE | 2022-12-04 14:45 | P.PAINPG ---
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 Pt states pain level is provoked at 10 /10 in intensity, constant, localized in the lower L breast, stabbing in character w shooting pain towards the mid chest. Pain is provoked by repositioning. Pain is alleviated by medications (Ibu), inactivity. PMH: CAD, Bladder CA, Angina, COPD, Hyperlipidemia, HTN, NE, OA, PE, PVD PSH: Bladder CA 15 yrs ago, Bladder Surgery (2019), Lung CA, Brain CA, Angiography (2019), Appendectomy, Bladder Surgery, Breast Surgery, Cholecystectomy, Heart Catheterization, Hysterectomy, Tubal Ligation, L Femoral Stent (2018), EGD/ Colonoscopy, HH Repair, Sinus Surgery SH: Former tobacco user, FH: Mo- Liver Cirrhosis, Fa- NE, Bro- Brain/ Lung CA. All: See list Meds: See list REVIEW OF ORGAN SYSTEMS: CONSTITUTIONAL: No fevers or chills. No recent weight loss. NEUROLOGICAL: + numbness and tingling along the distal extremities. No seizure disorders or headaches. MUSCULOSKELETAL: + pain PSYCHIATRIC: Denies current depression or suicidal thoughts. Physical Examinations : Constitutional : Cooperative , not in acute distress . Neurologic : Cranial nerve II to XII intact. No focal neurological deficits. Psychiatric : alert & oriented x 3. Matching mood & appropriate affect. Judgment & insight intact. Musculoskeletal : Cervical Spine Motor strength in the deltoid and biceps: Normal right side. Normal Left side Motor strength biceps and the wrist extensors: Normal right side . Normal left side Motor strength in the triceps muscle: Normal right side. Normal left side Deep tendon reflexes: Normal at the biceps. Normal at Brachioradialis. Normal at triceps Vertebral body tenderness to deep palpation over Cervical facet loading test: positive bilaterally Spurling test: positive bilaterally Neck distraction test: positive bilaterally Megan sign: positive bilaterally Thoracic spine TTP and 1" hyperpigmentation scar over L 5th intercostal space at mid axillae line Lumbar spine Motor strength lower extremities ,thigh and legs 5/5 Right side , 5/5 Left side Deep tendon reflexes : Normal Knee Jerk. Normal Ankle Jerk Vertebral body tenderness over Arzola Test positive Lumbar facet Loading Test: positive Right / positive Left Range of motion of the lumbar spine Flexion 30 degrees, extension 10 degrees Straight Leg Raise test: Left/ Right positive at degree Isabel test: positive right / positive left. Severe tenderness over the Sacroiliac joint on the Right / Left sides Gaenslen test: positive bilaterally Seated flexion test: positive bilaterally. Sacral spine : Severe tenderness over the Sacroiliac joint: right side / left side Range of motion: Flexion of the lumbar spine <60 degrees Range of motion: Extension of the lumbar spine <20 degrees Gaenslen's Test positive Reynold's Test positive Isabel test: positive right side / left side Thigh Thrust Test Sacral Thrust Test Imaging: CT non contrast of chest from 06/19/22 reviewed Assessment/ Plan : L 5th intercostal Neuralgia Recommendation of L 5th-6th intercostal nerve block. May need a series of injections for optimal pain relief. Risks, benefits of procedure discussed and patient verbalized understanding. Admits to aspirin or anti- coagulant use or medical history of diabetes. Protocol for discontinuation/ continuation of medications francisco procedure discussed. Minimal anesthesia provided, if clinically indicated, consisting of Versed and Fentanyl. All questions answered. I have spent greater than 30 minutes on patient care today. Dr Hirsch was available by phone for the evaluation of this patient. The time was used to review the medical records including relevant urine studies and Prescription history (MAPs), review of the available imaging, evaluation and examination of the patient, coordination of care with the medical staff and if applicable referring physicians, as well as creation of the medical record PQRS Narrative: Smoking Status Current every day smoker Home Medications: Ambulatory Orders Aspirin 81 mg PO HS 08/25/19 Clopidogrel [Plavix] 75 mg PO HS 08/25/19 Metoprolol Succinate [Toprol XL] 25 mg PO HS 08/25/19 Rosuvastatin Calcium [Crestor] 40 mg PO HS 08/25/19 Albuterol Sulfate [Albuterol Sulfate Hfa] 2 puff PO RT-Q6H PRN 05/26/22 Fluticasone/Umeclidin/Vilanter [Trelegy Ellipta 100-62.5-25] 1 inhalation INHALATION HS 08/18/22 Acetaminophen Tab [Tylenol] 650 mg PO Q4HR PRN tab 08/27/22 Gabapentin [Neurontin] 300 mg PO BID #60 cap 10/09/22 Controlled Substance Measures - Controlled Substance Measures Is patient prescribed a controlled substance at discharge?: No
== END ==
LOC: PNWHC3 08:05
PROVIDERS: ATTEND Specialist
DX: R07.82 Intercostal pain (principal); F17.200 Nicotine dependence, unspecified, uncomplicated; Z79.82 Long term (current) use of aspirin; I25.10 Atherosclerotic heart disease of native coronary artery without angina pectoris; J44.9 Chronic obstructive pulmonary disease, unspecified; E78.5 Hyperlipidemia, unspecified; I10 Essential (primary) hypertension; I25.2 Old myocardial infarction; M19.90 Unspecified osteoarthritis, unspecified site; I26.99 Other pulmonary embolism without acute cor pulmonale; I73.9 Peripheral vascular disease, unspecified; Z88.8 Allergy status to other drugs, medicaments and biological substances; Z88.0 Allergy status to penicillin
CPT/HCPCS: 99211

== ENCOUNTER 2022-12-31 14:56 | Emergency (ER) | payer BC ==
--- NOTE | 2022-12-31 15:53 | US ---
EXAMINATION TYPE: US venous doppler duplex LE LT DATE OF EXAM: 12/31/2022 3:31 PM COMPARISON: NONE CLINICAL INDICATION: Female, 62 years old with history of swelling pain hx dvt; Left leg pain SIDE PERFORMED: Left TECHNIQUE: The lower extremity deep venous system is examined utilizing real time linear array sonog ottoniel with graded compression, doppler sonography and color-flow sonography. VESSELS IMAGED: Common Femoral Vein Deep Femoral Vein Greater Saphenous Vein * Femoral Vein Popliteal Vein Small Saphenous Vein * Proximal Calf Veins (* superficial vessels) Left Leg: Negative for DVT IMPRESSION: Grayscale, color doppler, spectral doppler imaging performed of the deep veins of the lo wer extremities. There is normal flow, compressibility, vascular waveforms.
--- NOTE | 2022-12-31 17:50 | ED ---
Extremity Problem HPI - General Chief complaint: Extremity Problem,Nontraumatic Stated complaint: sob, lt leg pain Time Seen by Provider: 12/31/22 17:22 Source: patient Mode of arrival: ambulatory Limitations: no limitations - History of Present Illness Initial comments: 62-year-old female with past medical history significant for lung cancer presents to the ED with left leg pain. Patient states that this is been an ongoing issue since last October. Patient states that she was at a clinic today and was advised to present to the ED for further evaluation to rule out a blood clot. Patient has been ambulating without difficulty. Denies chest pain or shortness of breath. No other complaints. - Related Data Home Medications Medication Instructions Recorded Confirmed Aspirin 81 mg PO HS 08/25/19 12/04/22 Clopidogrel [Plavix] 75 mg PO HS 08/25/19 12/04/22 Metoprolol Succinate [Toprol XL] 25 mg PO HS 08/25/19 12/04/22 Rosuvastatin Calcium [Crestor] 40 mg PO HS 08/25/19 12/04/22 Albuterol Sulfate [Albuterol 2 puff PO RT-Q6H PRN 05/26/22 12/04/22 Sulfate Hfa] Fluticasone/Umeclidin/Vilanter 1 inhalation INHALATION HS 08/18/22 12/04/22 [Trelegy Ellipta 100-62.5-25] Previous Rx's Medication Instructions Recorded Acetaminophen Tab [Tylenol] 650 mg PO Q4HR PRN tab 08/27/22 Gabapentin [Neurontin] 300 mg PO BID #60 cap 10/09/22 Allergies Allergy/AdvReac Type Severity Reaction Status Date / Time atorvastatin Allergy SEVERE Verified 12/04/22 10:56 HEARTBURN Penicillins Allergy Rash/Hives/ Verified 12/04/22 10:56 Nausea Review of Systems ROS Statement: Those systems with pertinent positive or pertinent negative responses have been documented in the HPI. ROS Other: All systems not noted in ROS Statement are negative. Past Medical History Past Medical History: Coronary Artery Disease (CAD), Cancer, Chest Pain / Angina, COPD, Hyperlipidemia, Hypertension, Myocardial Infarction (AR), Osteoa rthritis (OA), Pulmonary Embolus (PE), Vascular Disorder Additional Past Medical History / Comment(s): "feels like stuff is getting stuck", Hx Bladder cancer- post surgical now. PE 2014. intermittent Pain in lt leg, discoloration in great toe. Last Myocardial Infarction Date:: unk History of Any Multi-Drug Resistant Organisms: None Reported Past Surgical History: Appendectomy, Bladder Surgery, Breast Surgery, Cholecystectomy, Heart Catheterization, Heart Catheterization With Stent, Hysterectomy Additional Past Surgical History / Comment(s): bladder surgery to remove cancer. 08/26/19 peripheral Angiography, cysts on lt breast removed, sinus surgery, left femoral stent 05/2019, COLONOSCOPY/EGD Past Anesthesia/Blood Transfusion Reactions: No Reported Reaction Additional Past Anesthesia/Blood Transfusion Reaction / Comment(s): no problem w/blood transfusion Date of Last Stent Placement:: unknown Past Psychological History: No Psychological Hx Reported Smoking Status: Current every day smoker - Past Family History Mother Family Medical History: Liver Disease Additional Family Medical History / Comment(s): liver cirrhosis Father Family Medical History: Myocardial Infarction (AR) Brother(s) Family Medical History: Cancer Additional Family Medical History / Comment(s): LUNG AND BRAIN CANCER General Exam Limitations: no limitations General appearance: alert Head exam: Present: atraumatic, normocephalic Eye exam: Present: normal appearance Neck exam: Present: normal inspection Respiratory exam: Present: normal lung sounds bilaterally Cardiovascular Exam: Present: regular rate, normal rhythm Extremities exam: Present: other (No tenderness to palpation of the calves/ Negative Homans sign. Strength and sensation equal and intact in bilateral lower extremities. 2+ DP/PT pulses.) Neurological exam: Present: alert, oriented X3 Psychiatric exam: Present: normal affect, normal mood Skin exam: Present: warm, dry Course Vital Signs 12/31/22 15:02 Temperature 97.4 F L Pulse Rate 81 Respiratory 20 Rate Blood Pressure 135/85 O2 Sat by Pulse 100 Oximetry Medical Decision Making - Medical Decision Making Was pt. sent in by a medical professional or institution (, PA, [facility], urgent care, hospital, or halfway...) When possible be specific @ -No Did you speak to anyone other than the patient for history (EMS, parent, family, police, friend...)? What history was obtained from this source @ -No Did you review nursing and triage notes (agree or disagree)? Why? @ -I reviewed and agree with nursing and triage notes Were old charts reviewed (outside hosp., previous admission, EMS record, old EKG, old radiological studies, urgent care reports/EKG's, halfway records)? Report findings @ -Charts reviewed showing a history of cancer Differential Diagnosis (chest pain, altered mental status, abdominal pain women, abdominal pain men, vaginal bleeding, weakness, fever, dyspnea, syncope, headache, dizziness, GI bleed, back pain, seizure, CVA, palpatations, mental health, musculoskeletal)? @ -Cellulitis, DVT, MRSA. This is not meant to be an all-inclusive list. EKG interpreted by me (3pts min.). @ -None X-rays interpreted by me (1pt min.). @ -None done CT interpreted by me (1pt min.). @ -None done U/S interpreted by me (1pt. min.). @ -US Showed No Evidence of DVT. What testing was considered but not performed or refused? (CT, X-rays, U/S, labs)? Why? @ -None What meds were considered but not given or refused? Why? @ -None Did you discuss the management of the patient with other professionals (pr ofessionals i.e. , PA, [facility], lab, RT, psych nurse, clinical social work aide, actuarial internship, teacher, corporate compliance officer, case filler)? Give summary @ -No Was smoking cessation discussed for >3mins.? @ -No Was critical care preformed (if so, how long)? @ -No Were there social determinants of health that impacted care today? How? (Homelessness, low income, unemployed, alcoholism, drug addiction, transportation, low edu. Level, literacy, decrease access to med. care, detention, rehab)? @ -No Was there de-escalation of care discussed even if they declined (Discuss DNR or withdrawal of care, Hospice)? DNR status @ -No What co-morbidities impacted this encounter? (DM, HTN, Smoking, COPD, CAD, Cancer, CVA, ARF, Chemo, Hep., AIDS, mental health diagnosis, sleep apnea, morbid obesity)? @ -None Was patient admitted / discharged? Hospital course, mention meds given and route, prescriptions, significant lab abnormalities, going to OR and other pertinent info. @ -Discharged. Imaging studies as above. At present, patient requesting discharge. States that she has follow-up with Dr. Morales of cardiology for this issue on Thursday. Because return precautions patient verbalizes agreement. Undiagnosed new problem with uncertain prognosis? @ -Yes, left leg pain. Drug Therapy requiring intensive monitoring for toxicity (Heparin, Nitro, Insulin, Cardizem)? @ -No Were any procedures done? @ -No Diagnosis/symptom? @ -Leg pain Acute, or Chronic, or Acute on Chronic? @ -Chronic Uncomplicated (without systemic symptoms) or Complicated (systemic symptoms)? @ -Uncomplicated Side effects of treatment? @ -No Exacerbation, Progression, or Severe Exacerbation? @ -No Poses a threat to life or bodily function? How? (Chest pain, USA, AR, pneumonia, PE, COPD, DKA, ARF, appy, cholecystitis, CVA, Diverticulitis, Homicidal, Suicidal, threat to staff... and all critical care pts) @ -No Disposition Clinical Impression: Left leg pain Disposition: HOME SELF-CARE Additional Instructions: Please return to the Emergency Department if symptoms worsen or any other concerns. Is patient prescribed a controlled substance at d/c from ED?: No Referrals: Edmundo Lobato MD [Primary Care Provider] - 1-2 days Time of Disposition: 17:51
[2022-12-31 18:15] VITALS: BP 135/86; PULSE 74; RESP 16; TEMP 97.6
== END 2022-12-31 18:41 | disposition home or self-care (01) ==
LOC: EC 14:56
DX: M79.605 Pain in left leg (principal); I10 Essential (primary) hypertension; I25.10 Atherosclerotic heart disease of native coronary artery without angina pectoris; I25.2 Old myocardial infarction; E78.5 Hyperlipidemia, unspecified; J44.9 Chronic obstructive pulmonary disease, unspecified; M19.90 Unspecified osteoarthritis, unspecified site; F17.200 Nicotine dependence, unspecified, uncomplicated; Z79.82 Long term (current) use of aspirin; Z79.899 Other long term (current) drug therapy; Z88.0 Allergy status to penicillin; Z88.8 Allergy status to other drugs, medicaments and biological substances; Z90.49 Acquired absence of other specified parts of digestive tract
CPT/HCPCS: 99283

== ENCOUNTER → 2023-01-28 | Outpatient (CLI) | payer BC ==
[2023-01-28 20:13] LABS: ALT 21 U/L (8-44); AST 21 U/L (13-35); Chol/HDL Ratio 3.26 Ratio; LDL Cholesterol,Calculated 93.9 mg/dL (0.0-131.0)
== END | disposition home or self-care (01) ==
LOC: LABWHC1 15:40
PROVIDERS: ATTEND Internal Medicine Cardiovascular Disease
DX: E78.2 Mixed hyperlipidemia (principal)
CPT/HCPCS: 36415; 80061; 84450; 84460

== ENCOUNTER → 2023-03-19 | Outpatient (CLI) | payer BC ==
--- NOTE | 2023-03-19 11:42 | CT ---
EXAMINATION TYPE: CT chest w con DATE OF EXAM: 03/19/2023 COMPARISON: HISTORY: lung CA, f/u CT DLP: 328.1 mGycm, Automated exposure control for dose reduction was used. CONTRAST: Performed injected with 100 mL of Isovue 300. TECHNIQUE: Axial images were obtained at 5 mm thick sections. Reconstructed images are reviewed on [employer] computer in the coronal plane. FINDINGS: Portion of the thyroid visualized is normal. There is a posterior medial right apical nodule measuring 1.3 x 1.1 cm. Series 4 image 9. Stable from comparison. There is a 1.8 x 2.6 cm density adjacent to the posterior aortic arch within the left upper lung fiel d. Series 4 image 17. New from comparison. Previous densities within the posterior left upper lung field are not evident on the current examinat ion. There is a small irregular 0.8 cm density within the anterior right lung. Series 4 image 26. This is increasing from comparison. Small groundglass opacity is in the posterior left lung. Series 4 image 30. Emphysematous changes are evident. No enlarged mediastinal or hilar adenopathy is evident. The ascending aorta diameter at the level o f the main pulmonary artery is 2.6 cm. The main pulmonary artery diameter at the bifurcation is 2.[address] sections are obtained through the upper abdomen. Abdomen is essentially unremarkable. IMPRESSION: 1. New right mid lung anteriorly and Maria Luz aortic arch nodules.
== END | disposition home or self-care (01) ==
LOC: RADCTMAIN 07:47
PROVIDERS: ATTEND Internal Medicine Critical Care Medicine
DX: R91.8 Other nonspecific abnormal finding of lung field (principal)
CPT/HCPCS: 71260; Q9967

== ENCOUNTER 2023-05-14 11:53 | Emergency (ER) | payer BC ==
[2023-05-14 12:16] VITALS: RESP 18
[2023-05-14] MEDS ORDERED: KETOROLAC 15 MG/ML 1 ML VIAL IM STA (12:58)
[2023-05-14] MEDS ORDERED: ORPHENADRINE 30 MG/ML 2 ML VIAL IM STA (12:58)
[2023-05-14 13:02] VITALS: TEMP 98.3
--- NOTE | 2023-05-14 13:10 | ED ---
General Adult HPI - General Chief complaint: Back Pain/Injury Stated complaint: back pain Time Seen by Provider: 05/14/23 12:00 Source: patient, RN notes reviewed, old records reviewed Mode of arrival: ambulatory Limitations: no limitations - History of Present Illness Initial comments: This is a 62-year-old female presents emergency Department complaining of left sided mid back pain. 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 Patient states is not helping. Patient denies any radiation of the pain. Patient denies any direct injury. Patient denies any recent fever chills per patient denies any inciting moment that she knows when the pain began. Patient states she has tried heat and cold does not seem to be helping. Patient states the pain is reproducible someone palpates the area on the left side. - Related Data Home Medications Medication Instructions Recorded Confirmed Aspirin 81 mg PO HS 08/25/19 12/04/22 Clopidogrel [Plavix] 75 mg PO HS 08/25/19 12/04/22 Metoprolol Succinate [Toprol XL] 25 mg PO HS 08/25/19 12/04/22 Rosuvastatin Calcium [Crestor] 40 mg PO HS 08/25/19 12/04/22 Albuterol Sulfate [Albuterol 2 puff PO RT-Q6H PRN 05/26/22 12/04/22 Sulfate Hfa] Fluticasone/Umeclidin/Vilanter 1 inhalation INHALATION HS 08/18/22 12/04/22 [Ray Ellipta 100-62.5-25] Previous Rx's Medication Instructions Recorded Acetaminophen Tab [Tylenol] 650 mg PO Q4HR PRN tab 08/27/22 Gabapentin [Neurontin] 300 mg PO BID #60 cap 10/09/22 Cyclobenzaprine [Flexeril] 10 mg PO TID #20 tab 05/14/23 Ketorolac [Toradol] 10 mg PO Q6HR #15 tab 05/14/23 Allergies Allergy/AdvReac Type Severity Reaction Status Date / Time atorvastatin Allergy SEVERE Verified 05/14/23 11:57 HEARTBURN Penicillins Allergy Rash/Hives/ Verified 05/14/23 11:57 Nausea Review of Systems ROS Statement: Those systems with pertinent positive or pertinent negative responses have been documented in the HPI. ROS Other: All systems not noted in ROS Statement are negative. Past Medical History Past Medical History: Coronary Artery Disease (CAD), Cancer, Chest Pain / Angina, COPD, Hyperlipidemia, Hypertension, Myocardial Infarction (NM), Osteoarthritis (OA), Pulmonary Embolus (PE), Vascular Disorder Additional Past Medical History / Comment(s): "feels like stuff is getting stuck", Hx Bladder cancer- post surgical now. PE 2015. intermittent Pain in lt leg, discoloration in great toe. Last Myocardial Infarction Date:: unk History of Any Multi-Drug Resistant Organisms: None Reported Past Surgical History: Appendectomy, Bladder Surgery, Breast Surgery, Cholecystectomy, Heart Catheterization, Heart Catheterization With Stent, Hysterectomy Additional Past Surgical History / Comment(s): bladder surgery to remove cancer. 08/26/19 peripheral Angiography, cysts on lt breast removed, sinus surgery, left femoral stent 05/2019, COLONOSCOPY/EGD Past Anesthesia/Blood Transfusion Reactions: No Reported Reaction Additional Past Anesthesia/Blood Transfusion Reaction / Comment(s): no problem w/blood transfusion Date of Last Stent Placement:: unknown Past Psychological History: No Psychological Hx Reported Smoking Status: Former smoker Past Alcohol Use History: None Reported Past Drug Use History: None Reported - Past Family History Mother Family Medical History: Liver Disease Additional Family Medical History / Comment(s): liver cirrhosis Father Family Medical History: Myocardial Infarction (NM) Brother(s) Family Medical History: Cancer Additional Family Medical History / Comment(s): LUNG AND BRAIN CANCER General Exam - General Exam Comments Initial Comments: GENERAL Patient is well-developed and well-nourished. Patient is in mild distress. EYES Patient's pupils are equal and round. Extraocular motion is intact SKIN Unremarkable NEURO The patient is alert and oriented 3 PYSCH Patient has normal interpersonal interactions. MUSCULOSKELETAL Patient has tenderness along the paraspinous muscles on the left and the thoracic region of the back. Patient has no spinous process tenderness. Patient has no neurologic deficit. Limitations: no limitations Course Vital Signs 05/14/23 05/14/23 11:55 12:46 Temperature 98.8 F 98.3 F Pulse Rate 100 64 Respiratory 18 18 Rate Blood Pressure 143/73 118/77 O2 Sat by Pulse 98 98 Oximetry Medical Decision Making - Medical Decision Making Was pt. sent in by a medical professional or institution (BOUBACAR Johnson, RN EXAMINER, urgent care, hospital, or correction...) When possible be specific @ -No Did you speak to anyone other than the patient for history (EMS, parent, family, police, friend...)? What history was obtained from this source @ -No Did you review nursing and triage notes (agree or disagree)? Why? @ -I reviewed and agree with nursing and triage notes Were old charts reviewed (outside hosp., previous admission, EMS record, old EKG, old radiological studies, urgent care reports/EKG's, correction records)? Report findings @ -No old charts were reviewed Differential Diagnosis (chest pain, altered mental status, abdominal pain women, abdominal pain men, vaginal bleeding, weakness, fever, dyspnea, syncope, headache, dizziness, GI bleed, back pain, seizure, CVA, palpatations, mental health, musculoskeletal)? @ -Differential Musculoskeletal Muscular strain, contusion, ligament sprain, fracture, arthritis, septic arthritis, bursitis, cellulitis, muscle spasm, nerve compression, DVT, arterial occlusion, herpes zoster, electrolyte abnormality, tumor.... This is not meant to be in all inclusive list EKG interpreted by me (3pts min.). @ -As above X-rays interpreted by me (1pt min.). @ -Thoracic spine x-ray shows no acute abnormality CT interpreted by me (1pt min.). @ -None done U/S interpreted by me (1pt. min.). @ -None done What testing was considered but not performed or refused? (CT, X-rays, U/S, labs)? Why? @ -None What meds were considered but not given or refused? Why? @ -None Did you discuss the management of the patient with other professionals (professionals i.e. BOUBACAR Johnson, RN EXAMINER, lab, RT, psych nurse, mental health social worker, wire frame maker, teacher, project control officer, case work aide)? Give summary @ -No Was smoking cessation discussed for >3mins.? @ -No Was critical care preformed (if so, how long)? @ -No Were there social determinants of health that impacted care today? How? (Homelessness, low income, unemployed, alcoholism, drug addiction, transporta tion, low edu. Level, literacy, decrease access to med. care, fdc, rehab)? @ -No Was there de-escalation of care discussed even if they declined (Discuss DNR or withdrawal of care, Hospice)? DNR status @ -No What co-morbidities impacted this encounter? (DM, HTN, Smoking, COPD, CAD, Cancer, CVA, ARF, Chemo, Hep., AIDS, mental health diagnosis, sleep apnea, morbid obesity)? @ -None Was patient admitted / discharged? Hospital course, mention meds given and route, prescriptions, significant lab abnormalities, going to OR and other pertinent info. @ -Norflex in the emergency department she did get some relief with that. Patient's x-ray showed no acute abnormality. Patient was sent home with Toradol and Flexeril and was told to stop the other muscle relaxant as well as the steroid. Patient also was informed that if this does not improve in 3-4 days she is to follow-up with the primary medical care doctor Undiagnosed new problem with uncertain prognosis? @ -No Drug Therapy requiring intensive monitoring for toxicity (Heparin, Nitro, Insulin, Cardizem)? @ -No Were any procedures done? @ -No Diagnosis/symptom? @ -Thoracic back pain Acute, or Chronic, or Acute on Chronic? @ -Acute Uncomplicated (without systemic symptoms) or Complicated (systemic symptoms)? @ -Uncomplicated Side effects of treatment? @ -No Exacerbation, Progression, or Severe Exacerbation? @ -No Poses a threat to life or bodily function? How? (Chest pain, USA, NM, pneumonia, PE, COPD, DKA, ARF, appy, cholecystitis, CVA, Diverticulitis, Homicidal, Suicidal, threat to staff... and all critical care pts) @ -No Disposition Clinical Impression: Thoracic back pain Disposition: HOME SELF-CARE Condition: Good Instructions (If sedation given, give patient instructions): Thoracic Pain (ED) Prescriptions: Cyclobenzaprine [Flexeril] 10 mg PO TID #20 tab Ketorolac [Toradol] 10 mg PO Q6HR #15 tab Is patient prescribed a controlled substance at d/c from ED?: No Referrals: Edmundo Lobato MD [Primary Care Provider] - 1-2 days Time of Disposition: 14:28
--- NOTE | 2023-05-14 14:00 | XR ---
EXAMINATION TYPE: XR thoracic spine complete DATE OF EXAM: 05/14/2023 1:40 PM INDICATION: Patient age:Female; 62 years old; Reason for study: Back pain; [facility]H. COMPARISON: CT chest 03/19/2023, chest radiograph 08/27/2022 TECHNIQUE: 3 views of the thoracic spine in frontal, lateral, and swimmer's projections. FINDINGS: No evidence of acute fracture. No vertebral body height loss. No spondylolisthesis. Mild dextrocurvat ure of the thoracic spine. Increased thoracic kyphosis. Mild multilevel degenerative changes of the t horacic spine with disc space narrowing, endplate sclerosis, and anterior osteophytosis. Atherosclero tic calcification of the aorta. Redemonstration of right medial apical 2.6 cm nodule from prior CT. IMPRESSION: 1. No acute osseous pathology. 2. Mild multilevel degenerative disc disease. 3. Redemonstration of right medial apical 2.6 cm nodule from prior CT.
[2023-05-14] MEDS ORDERED: ACET/COD 300 MG/30 MG STARTER PACK 6 TAB BTL PO STA (14:53)
[2023-05-14 14:59] VITALS: BP 114/74; PULSE 83
== END 2023-05-14 14:57 | disposition home or self-care (01) ==
LOC: EC 11:53
DX: M54.6 Pain in thoracic spine (principal); I10 Essential (primary) hypertension; I25.10 Atherosclerotic heart disease of native coronary artery without angina pectoris; I25.2 Old myocardial infarction; J44.9 Chronic obstructive pulmonary disease, unspecified; E78.5 Hyperlipidemia, unspecified; Z88.0 Allergy status to penicillin; Z88.8 Allergy status to other drugs, medicaments and biological substances; Z79.51 Long term (current) use of inhaled steroids; Z79.02 Long term (current) use of antithrombotics/antiplatelets; Z79.82 Long term (current) use of aspirin; Z79.899 Other long term (current) drug therapy; Z90.49 Acquired absence of other specified parts of digestive tract; Z87.891 Personal history of nicotine dependence; Z86.711 Personal history of pulmonary embolism; Z95.5 Presence of coronary angioplasty implant and graft
CPT/HCPCS: 99284; 96372 ×2; 72072; J2360; J1885

== ENCOUNTER 2023-07-08 10:46 | Emergency (ER) | payer BC ==
--- NOTE | 2023-07-08 11:01 | ED ---
General Adult HPI - General Stated complaint: Abd pain/vomiting - History of Present Illness Initial comments: 62-year-old female with a past medical history significant for recent left pneumonectomy on June 19 presents to ED with a chief complaint of nausea and vomiting. Patient states that she has been unable to hold any fluids down since recent procedure. Also notes she has not had a bowel movement 13 days. Notes that her surgeon was concerned that she possibly has an obstruction secondary to symptoms and was advised to present to the ED for further evaluation. Denies abdominal pain. Follows with Dr. Dieter Rdz - Related Data Home Medications Medication Instructions Recorded Confirmed Aspirin 81 mg PO HS 08/25/19 07/08/23 Clopidogrel [Plavix] 75 mg PO HS 08/25/19 07/08/23 Metoprolol Succinate [Toprol XL] 25 mg PO HS 08/25/19 07/08/23 Rosuvastatin Calcium [Crestor] 40 mg PO HS 08/25/19 07/08/23 Albuterol Sulfate [Albuterol 2 puff PO RT-Q6H PRN 05/26/22 07/08/23 Sulfate Hfa] Fluticasone/Umeclidin/Vilanter 1 puff INHALATION RT-HS 08/18/22 07/08/23 [Trelegy Ellipta 100-62.5-25] Ipratropium-Albuterol Nebulize 3 ml INHALATION RT-QID PRN 07/08/23 07/08/23 [Duoneb 0.5 mg-3 mg/3 ml Soln] Previous Rx's Medication Instructions Recorded Ondansetron Odt [Zofran Odt] 4 mg PO Q8HR PRN #12 tab 07/08/23 Allergies Allergy/AdvReac Type Severity Reaction Status Date / Time atorvastatin Allergy SEVERE Verified 07/08/23 15:02 HEARTBURN Penicillins Allergy Rash/Hives/ Verified 07/08/23 15:02 Nausea Review of Systems ROS Statement: Those systems with pertinent positive or pertinent negative responses have been documented in the HPI. ROS Other: All systems not noted in ROS Statement are negative. Past Medical History Past Medical History: Coronary Artery Disease (CAD), Cancer, Chest Pain / Angina, COPD, Hyperlipidemia, Hypertension, Myocardial Infarction (NC), Osteoarthritis (OA), Pulmonary Embolus (PE), Vascular Disorder Additional Past Medical History / Comment(s): "feels like stuff is getting stuck", Hx Bladder cancer- post surgical now. PE 2015. intermittent Pain in lt leg, discoloration in great toe. Last Myocardial Infarction Date:: unk History of Any Multi-Drug Resistant Organisms: None Reported Past Surgical History: Appendectomy, Bladder Surgery, Breast Surgery, Cholecystectomy, Heart Catheterization, Heart Catheterization With Stent, Hysterectomy Additional Past Surgical History / Comment(s): bladder surgery to remove cancer. 08/26/19 peripheral Angiography, cysts on lt breast removed, sinus surgery, left femoral stent 05/2019, COLONOSCOPY/EGD Past Anesthesia/Blood Transfusion Reactions: No Reported Reaction Additional Past Anesthesia/Blood Transfusion Reaction / Comment(s): no problem w/blood transfusion Date of Last Stent Placement:: unknown Past Psychological History: No Psychological Hx Reported Smoking Status: Former smoker Past Alcohol Use History: None Reported Past Drug Use History: None Reported - Past Family History Mother Family Medical History: Liver Disease Additional Family Medical History / Comment(s): liver cirrhosis Father Family Medical History: Myocardial Infarction (NC) Brother(s) Family Medical History: Cancer Additional Family Medical History / Comment(s): LUNG AND BRAIN CANCER General Exam - General Exam Comments Initial Comments: Visual Physical Exam Vital signs reviewed General: Well-appearing, nontoxic, no acute distress. Head: Normocephalic, atraumatic Eyes: PERRLA, EOMI ENT: Airway patent Chest: Nonlabored breathing Skin: No visual rash, normal skin tone Neuro: Alert and oriented 3 Musculoskeletal: No gross abnormalities General appearance: alert, in no apparent distress Respiratory exam: Present: other (Decreased lung sounds on the left) Cardiovascular Exam: Present: regular rate, normal rhythm GI/Abdominal exam: Present: soft Course Vital Signs 07/08/23 07/08/23 11:29 14:48 Temperature 98.1 F 99.1 F Pulse Rate 92 98 Respiratory 18 16 Rate Blood Pressure 121/85 108/75 O2 Sat by Pulse 100 98 Oximetry Medical Decision Making - Medical Decision Making Was pt. sent in by a medical professional or institution (, PA, SPLITTING MACHINE OPERATOR HELPER, urgent care, hospital, or snf...) When possible be specific @ -no Did you speak to anyone other than the patient for history (EMS, parent, family, police, friend...)? What history was obtained from this source @ -no Did you review nursing and triage notes (agree or disagree)? Why? @ -I reviewed and agree with nursing and triage notes Were old charts reviewed (outside hosp., previous admission, EMS record, old EKG, old radiological studies, urgent care reports/EKG's, snf records)? Report findings @ -No old charts were reviewed Differential Diagnosis (chest pain, altered mental status, abdominal pain women, abdominal pain men, vaginal bleeding, weakness, fever, dyspnea, syncope, headache, dizziness, GI bleed, back pain, seizure, CVA, palpatations, mental health, musculoskeletal)? @ -Differential Abdominal Pain Women: Appendicitis, Cholecystitis, diverticulosis, ischemic bowel, pancreatitis, hepatitis, UTI, gastroenteritis, AAA, incarcerated hernia, bowel obstruction, constipation, inflammatory bowel, hepatitis, peptic ulcer disease, splenic infarction, perforated viscus, vulvitis, ovarian torsion, PID, kidney stone, placenta abruption, this is not meant to be an all-inclusive list EKG interpreted by me (3pts min.). @ -None X-rays interpreted by me (1pt min.). @ -x-ray of the chest and abdomen interpreted by me. X-ray reveals at the thoracotomy tube has been pulled into the subcu tissue. Also posterior left rib fracture which patient states she is aware of. No other findings. CT interpreted by me (1pt min.). @ -None done U/S interpreted by me (1pt. min.). @ -None done What testing was considered but not performed or refused? (CT, X-rays, U/S, labs)? Why? @ -None What meds were considered but not given or refused? Why? @ -None Did you discuss the management of the patient with other professionals (professionals i.e. , PA, SPLITTING MACHINE OPERATOR HELPER, lab, RT, psych nurse, manager social media, collections and archives director, teacher, plant protection officer, case managers)? Give summary @ -No Was smoking cessation discussed for >3mins.? @ -No Was critical care preformed (if so, how long)? @ -No Were there social determinants of health that impacted care today? How? (Homelessness, low income, unemployed, alcoholism, drug addiction, transportation, low edu. Level, literacy, decrease access to med. care, correction, rehab)? @ -No Was there de-escalation of care discussed even if they declined (Discuss DNR or withdrawal of care, Hospice)? DNR status @ -No What co-morbidities impacted this encounter? (DM, HTN, Smoking, COPD, CAD, Cancer, CVA, ARF, Chemo, Hep., AIDS, mental health diagnosis, sleep apnea, morbid obesity)? @ -None Was patient admitted / discharged? Hospital course, mention meds given and route, prescriptions, significant lab abnormalities, going to OR and other pertinent info. @ Discharge 62-year-old female presenting to the ED with complaints of nausea and vomiting. Patient had significant improvement of nausea with a dose of Zofran and reports that she would like to go home. X-ray did not reveal evidence of obstruction however did show stool burden. X-ray also did reveal that the thoracotomy tube has been moved into the subcutaneous tissues. No other acute findings on x-ray. She states that she will follow up as she has follow-up with her surgeon scheduled tomorrow. Discussed return precautions with patient who verbalizes agreement. Undiagnosed new problem with uncertain prognosis? @ -No Drug Therapy requiring intensive monitoring for toxicity (Heparin, Nitro, Insulin, Cardizem)? @ -No Were any procedures done? @ -No Diagnosis/symptom? @ -Nausea Acute, or Chronic, or Acute on Chronic? @ -Acute Uncomplicated (without systemic symptoms) or Complicated (systemic symptoms)? @ -Uncomplicated Side effects of treatment? @ -no Exacerbation, Progression, or Severe Exacerbation? @ -No Poses a threat to life or bodily function? How? (Chest pain, USA, NC, pneumonia, PE, COPD, DKA, ARF, appy, cholecystitis, CVA, Diverticulitis, Homicidal, Suicidal, threat to staff... and all critical care pts) @ -No - Lab Data Result diagrams: 07/08/23 12:14 07/08/23 11:32 Lab Results 07/08/23 07/08/23 07/08/23 Range/Units 11:32 11:32 11:32 WBC (3.8-10.6) k/uL RBC (3.80-5.40) m/uL Hgb (11.4-16.0) gm/dL Hct (34.0-46.0) % MCV (80.0-100.0) fL MCH (25.0-35.0) pg MCHC (31.0-37.0) g/dL RDW (11.5-15.5) % Plt Count (150-450) k/uL MPV Neutrophils % % Lymphocytes % % Monocytes % % Eosinophils % % Basophils % % Neutrophils # (1.3-7.7) k/uL Lymphocytes # (1.0-4.8) k/uL Monocytes # (0-1.0) k/uL Eosinophils # (0-0.7) k/uL Basophils # (0-0.2) k/uL Sodium 139 (137-145) mmol/L Potassium 3.3 L (3.5-5.1) mmol/L Chloride 99 (98-107) mmol/L Carbon Dioxide 28 (22-30) mmol/L Anion Gap 12 mmol/L BUN 8 (7-17) mg/dL Creatinine 0.63 (0.52-1.04) mg/dL Est GFR (CKD-EPI)AfAm >90 (>60 ml/min/1.73 sqM) Est GFR (CKD-EPI)NonAf >90 (>60 ml/min/1.73 sqM) Glucose 113 H (74-99) mg/dL Plasma Lactic Acid Geraldo 1.2 (0.7-2.0) mmol/L Calcium 9.6 (8.4-10.2) mg/dL Total Bilirubin 0.6 (0.2-1.3) mg/dL AST 23 (14-36) U/L ALT 23 (4-34) U/L Alkaline Phosphatase 173 H (38-126) U/L Total Protein 6.8 (6.3-8.2) g/dL Albumin 3.7 (3.5-5.0) g/dL Amylase 41 (30-110) U/L Lipase 77 (23-300) U/L Urine Color Yellow Urine Appearance Cloudy H (Clear) Urine pH 6.0 (5.0-8.0) Ur Specific [place] 1.020 (1.001-1.035) Urine Protein Trace H (Negative) Urine Glucose (UA) Negative (Negative) Urine Ketones Negative (Negative) Urine Blood Negative (Negative) Urine Nitrite Negative (Negative) Urine Bilirubin Negative (Negative) Urine Urobilinogen 3.0 (<2.0) mg/dL Ur Leukocyte Esterase Negative (Negative) Urine RBC 1 (0-5) /hpf Urine WBC 6 H (0-5) /hpf Ur Squamous Epith Cells 6 H (0-4) /hpf Amorphous Sediment Rare H (None) /hpf Urine Bacteria Occasional H (None) /hpf Urine Mucus Many H (None) /hpf 07/08/23 Range/Units 12:14 WBC 11.2 H (3.8-10.6) k/uL RBC 4.57 (3.80-5.40) m/uL Hgb 12.8 (11.4-16.0) gm/dL Hct 38.3 (34.0-46.0) % MCV 83.9 (80.0-100.0) fL MCH 28.0 (25.0-35.0) pg MCHC 33.4 (31.0-37.0) g/dL RDW 14.3 (11.5-15.5) % Plt Count 740 H (150-450) k/uL MPV 7.1 Neutrophils % 65 % Lymphocytes % 24 % Monocytes % 5 % Eosinophils % 4 % Basophils % 1 % Neutrophils # 7.2 (1.3-7.7) k/uL Lymphocytes # 2.7 (1.0-4.8) k/uL Monocytes # 0.6 (0-1.0) k/uL Eosinophils # 0.4 (0-0.7) k/uL Basophils # 0.1 (0-0.2) k/uL Sodium (137-145) mmol/L Potassium (3.5-5.1) mmol/L Chloride (98-107) mmol/L Carbon Dioxide (22-30) mmol/L Anion Gap mmol/L BUN (7-17) mg/dL Creatinine (0.52-1.04) mg/dL Est GFR (CKD-EPI)AfAm (>60 ml/min/1.73 sqM) Est GFR (CKD-EPI)NonAf (>60 ml/min/1.73 sqM) Glucose (74-99) mg/dL Plasma Lactic Acid Geraldo (0.7-2.0) mmol/L Calcium (8.4-10.2) mg/dL Total Bilirubin (0.2-1.3) mg/dL AST (14-36) U/L ALT (4-34) U/L Alkaline Phosphatase (38-126) U/L Total Protein (6.3-8.2) g/dL Albumin (3.5-5.0) g/dL Amylase (30-110) U/L Lipase (23-300) U/L Urine Color Urine Appearance (Clear) Urine pH (5.0-8.0) Ur Specific [place] (1.001-1.035) Urine Protein (Negative) Urine Glucose (UA) (Negative) Urine Ketones (Negative) Urine Blood (Negative) Urine Nitrite (Negative) Urine Bilirubin (Negative) Urine Urobilinogen (<2.0) mg/dL Ur Leukocyte Esterase (Negative) Urine RBC (0-5) /hpf Urine WBC (0-5) /hpf Ur Squamous Epith Cells (0-4) /hpf Amorphous Sediment (None) /hpf Urine Bacteria (None) /hpf Urine Mucus (None) /hpf Disposition Clinical Impression: Nausea Disposition: HOME SELF-CARE Condition: Good Additional Instructions: Please return to the Emergency Department if symptoms worsen or any other concerns. Please follow-up with your surgeon. Prescriptions: Ondansetron Odt [Zofran Odt] 4 mg PO Q8HR PRN #12 tab PRN Reason: Nausea Is patient prescribed a controlled substance at d/c from ED?: No Referrals: Edmundo Lobato MD [Primary Care Provider] - 1-2 days Time of Disposition: 15:11
[2023-07-08] MEDS ORDERED: ONDANSETRON ODT 4 MG TAB PO STA (11:04)
--- NOTE | 2023-07-08 11:44 | XR ---
EXAMINATION TYPE: XR KUB DATE OF EXAM: 07/08/2023 11:33 AM CLINICAL INDICATION:Female, 62 years old with history of no bowel movement 13 days. N/V; [facility] COMPARISON: 08/27/2022.. TECHNIQUE: One radiographic view of the abdomen was obtained. FINDINGS: Large amount of stool throughout the colon. The bowel gas pattern is nonspecific without di lated loops of small or large bowel. There is no evidence for organomegaly or pneumoperitoneum. The osseous structures are intact. No abnormal calcifications are present. Fecal material and gas are de monstrated throughout the colon and rectum. Scoliosis changes spine. Stent grafts noted in the bilat eral common iliac arteries. Left thoracotomy tube appears to be with within the subcutaneous tissues. IMPRESSION: 1. Left thoracotomy tube migration and appears withdrawn from the left lung and in the subcutaneous tissues. 2. Large stool burden throughout the colon.
[2023-07-08 12:00] LABS: ALT 23 U/L (4-34); AST 23 U/L (14-36); African American GFR (CKD) >90 (>60 ml/min/1.73 sqM); Albumin 3.7 g/dL (3.5-5.0); Alkaline Phosphatase 173 U/L (38-126); Amylase 41 U/L (30-110); Anion Gap 12 mmol/L; Blood Urea Nitrogen 8 mg/dL (7-17); Calcium 9.6 mg/dL (8.4-10.2); Carbon Dioxide 28 mmol/L (22-30); Chloride 99 mmol/L (98-107); Glucose 113 mg/dL (74-99); Lipase 77 U/L (23-300); Non-African American GFR(CKD) >90 (>60 ml/min/1.73 sqM); Potassium 3.3 mmol/L (3.5-5.1); Sodium 139 mmol/L (137-145); Total Bilirubin 0.6 mg/dL (0.2-1.3); Total Protein 6.8 g/dL (6.3-8.2)
[2023-07-08 12:24] LABS: Basophils # (A) 0.1 k/uL (0-0.2); Basophils % (A) 1 %; Eosinophils # (A) 0.4 k/uL (0-0.7); Eosinophils % (A) 4 %; HCT 38.3 % (34.0-46.0); HGB 12.8 gm/dL (11.4-16.0); Lymphocytes # (A) 2.7 k/uL (1.0-4.8); Lymphocytes % (A) 24 %; MCHC 33.4 g/dL (31.0-37.0); MCV 83.9 fL (80.0-100.0); Mean Platelet Volume 7.1; Monocytes # (A) 0.6 k/uL (0-1.0); Monocytes % (A) 5 %; Neutrophils # (A) 7.2 k/uL (1.3-7.7); Neutrophils % (A) 65 %; Platelet Count 740 k/uL (150-450); RBC 4.57 m/uL (3.80-5.40); RDW 14.3 % (11.5-15.5); WBC 11.2 k/uL (3.8-10.6)
--- NOTE | 2023-07-08 14:53 | XR ---
EXAMINATION TYPE: XR chest 2V DATE OF EXAM: 07/08/2023 2:41 PM CLINICAL INDICATION:Female, 62 years old with history of thoracotomy tube out of place; COMPARISON: Same day abdominal radiograph. TECHNIQUE: XR chest 2V Frontal and lateral views of the chest. FINDINGS: Lungs/Pleura: There is no evidence of pleural effusion, focal consolidation, or pneumothorax. Pulmonary vascularity: Unremarkable. Heart/mediastinum: Cardiomediastinal silhouette is unremarkable. Musculoskeletal: No acute osseous pathology. Left rib fracture posteriorly which is displaced. Other findings: None Lines/Tubes: Left chest tube appears to be within the subcutaneous tissues. Surgical clips along the left lateral chest wall. IMPRESSION: 1. Left chest tube appears to be within the subcutaneous tissue as seen on same day abdominal radiog raph. Correlate clinically. 2. Posterior left rib fracture which is not definitively seen on immediate prior on 08/27/2022.
[2023-07-08 15:01] LABS: Amorphous Sediment,Urine Rare /hpf; Appearance,Urine Cloudy (Clear); Bacteria,Urine Occasional /hpf; Bilirubin,Urine Negative (Negative); Blood,Urine Negative (Negative); Color,Urine Yellow; Glucose,Urine (UA) Negative (Negative); Ketones,Urine Negative (Negative); Leukocyte Esterase,Urine Negative (Negative); Mucus,Urine Many /hpf; Nitrite,Urine Negative (Negative); Protein,Urine Trace (Negative); RBC,Urine 1 /hpf (0-5); Squamous Epithelial Cell,Urine 6 /hpf (0-4); WBC,Urine 6 /hpf (0-5)
[2023-07-08] MEDS ORDERED: ONDANSETRON 4 MG ODT STARTER PACK 2 TAB BTL PO STA (15:19)
[2023-07-08 15:33] VITALS: BP 108/75; PULSE 98; RESP 16; TEMP 99.1
== END 2023-07-08 15:16 | disposition home or self-care (01) ==
LOC: EC 10:46
DX: R11.0 Nausea (principal); I25.10 Atherosclerotic heart disease of native coronary artery without angina pectoris; J44.9 Chronic obstructive pulmonary disease, unspecified; E78.5 Hyperlipidemia, unspecified; I10 Essential (primary) hypertension; I25.2 Old myocardial infarction; Z87.891 Personal history of nicotine dependence; Z88.0 Allergy status to penicillin; Z88.8 Allergy status to other drugs, medicaments and biological substances; Z79.01 Long term (current) use of anticoagulants; Z79.82 Long term (current) use of aspirin; Z79.899 Other long term (current) drug therapy; Z79.51 Long term (current) use of inhaled steroids
CPT/HCPCS: 36415; 80053; 82150; 83605; 83690; 85025; 81001; 71046; 74018; 99284; S0119

== ENCOUNTER → 2023-10-16 | Outpatient (CLI) | payer OTHER ==
--- NOTE | 2023-10-16 15:51 | CT ---
EXAMINATION TYPE: CT chest wo con DATE OF EXAM: 10/16/2023 COMPARISON: 03/19/2023 HISTORY: Lung CA, surgery June 2023, Lt sided chest pain CT DLP: 398 mGycm, Automated exposure control for dose reduction was used. CONTRAST: Performed injected with 0 mL of Isovue 300. TECHNIQUE: Axial images were obtained at 5 mm thick sections. Reconstructed images are reviewed on [employer] computer in the coronal plane. FINDINGS: Portion of the thyroid visualized is normal. There is partially spiculated nodule at the posterior medial right apex measuring 1.4 cm. This is sta ble in size. There is a stable 0.5 cm nodule lateral right lung. Series 4 image 21 There is some new spiculation within the anterior left upper lung field, example image series 4 image 18. Underlying 0.5 cm nodule is not excluded. Previous streak opacities at the level of the left suprahilar region not identified. There is some thickening measuring 1.1 cm in the left suprahilar region, series 4 image 21. There is a small spiculated area in the right midlung. Series 4 image 27, this may be slightly larger than the comparison Emphysematous changes are present bilaterally. No enlarged mediastinal or hilar adenopathy is evident. The ascending aorta diameter at the level o f the main pulmonary artery is 2.7 cm. The main pulmonary artery diameter at the bifurcation is 1.9 cm. Coronary artery calcification is present. Limited CT sections are obtained through the upper abdomen. Abdomen is essentially unremarkable. IMPRESSION: 1. New area of spiculation within the left upper lung field. There is slightly enlarged spiculated ar ea within the right mid lung. 2. Previous nodularity appears stable from comparison. 3. Additional streak opacities were present previously. 4. No new suspicious adenopathy
== END | disposition home or self-care (01) ==
LOC: RADCTMAIN 10:51
PROVIDERS: ATTEND Thoracic Surgery (Cardiothoracic Vascular Surgery)
DX: C78.00 Secondary malignant neoplasm of unspecified lung (principal); R07.89 Other chest pain
CPT/HCPCS: 71250

== ENCOUNTER → 2024-09-23 | Outpatient (CLI) | payer OTHER ==
--- NOTE | 2024-09-23 08:49 | PE ---
EXAMINATION TYPE: PET CT fusion skull to thigh DATE OF EXAM: 09/23/2024 COMPARISON: Prior PET/CT July 11, 2022. Most recent CT October 16, 2023 HISTORY: Lung cancer newly diagnosed. TECHNIQUE: Following the intravenous administration of 10.27 mCi of F-18 FDG, whole body images are performed from the skull base to the midthigh. Images are reviewed on the computer in the coronal, a xial, and sagittal planes. Reconstructed rotating images are created on independent workstation and reviewed on the computer. A localization and attenuation correction CT is performed in conjunction with the PET scan. Blood glucose level equals 97 SCAN: Initial Scan FINDINGS: SKULL BASE AND NECK: No areas of abnormal hypermetabolic uptake CHEST, MEDIASTINUM, AND HILAR REGION: Moderate underlying emphysematous change bilaterally is redemon strated. Stable 1.4 x 1.3 cm medial right upper lung pulmonary nodule axial image 63 without abnormal hyperme tabolic uptake. Persistent scarlike opacity and sutures anterior left upper to midlung without abnormal hypermetaboli c uptake. More prominent 1.4 cm spiculated nodule in the anterior right midlung axial image 91 with abnormal hy permetabolic uptake, max SUV is 12.82. Left-sided volume loss is redemonstrated. No additional areas of abnormal hypermetabolic uptake. ABDOMEN AND PELVIS: Normal excretion is seen. No hypermetabolic adrenal masses. Stable low dense thic kening to the left adrenal gland. Nonspecific bowel uptake in the lower abdomen and pelvis. No suspic ious abnormal hypermetabolic uptake OSSEOUS STRUCTURES: . No suspicious abnormal hypermetabolic uptake. OTHER CT: Persistent levoconvex scoliosis centered in the upper to mid lumbar spine. Persistent moder ate to severe three-vessel coronary artery calcification. Small-sized hiatal hernia is redemonstrated . Moderate calcified plaque bilateral carotid bulb level is present. Cholecystectomy clips are seen. There is AAA up to 3.4 cm transversely axial image 154. There are bilateral common iliac artery stent grafts. Uterus is surgically absent. IMPRESSION: More prominent right mid lung nodule measures 1.4 cm and has abnormal hypermetabolic upta ke suggestive of malignancy. No suspicious thoracic adenopathy or metastatic disease is seen. [facility], , 09/23/2024 8:46 AM
== END | disposition home or self-care (01) ==
LOC: RADPETMAIN 06:32
PROVIDERS: ATTEND Internal Medicine
DX: C34.81 Malignant neoplasm of overlapping sites of right bronchus and lung (principal); R91.1 Solitary pulmonary nodule
CPT/HCPCS: 78815; A9552

== ENCOUNTER → 2025-01-30 | Outpatient (CLI) | payer OTHER ==
--- NOTE | 2025-01-30 21:05 | CT ---
EXAMINATION TYPE: CT chest wo con DATE OF EXAM: 01/30/2025 3:59 PM COMPARISON: CT 10/16/2023 and 09/23/2024 PET/CT CLINICAL INDICATION: Female, 64 years old with history of C34.11 MALIGNANT NEOPLASM OF UPPER LOBE, RI GHT BRO; [facility], left upper lobe removed 06/2023. Last radiation treatment in TECHNIQUE: CT of the chest without IV contrast. Coronal and sagittal reconstructions performed. CT DLP: 231.30 mGycm, Automated exposure control for dose reduction was used. FINDINGS: The heart is normal size without pericardial effusion. 3 vessel coronary artery calcifications are pr esent and are marker for coronary artery disease. Aorta normal caliber with moderate atherosclerotic arch calcifications and conventional arch vessel b ranching anatomy. No thoracic lymphadenopathy allowing for noncontrast technique. Postsurgical change right upper lobectomy. Some hyperdense surgical material and architectural distor tion. A left upper lung is unchanged. Background moderate to advanced emphysematous change. * 1.0 cm vague nodule posterior left upper lung, axial image 20 is unchanged from 09/23/2024 by more defined compared to 10/16/2023. * 1.1 cm anterior right midlung pulmonary nodule, axial image 31 is unchanged from 09/23/2024 but mor e defined compared to 10/16/2023. * 7 mm lateral right midlung pulmonary nodule, axial image 25, measured 6 mm on 09/23/2024 and 5 mm o n 10/16/2023. * 1.7 cm subpleural pulmonary nodule posteromedial right upper lung, axial image 11 is unchanged fro m 09/23/2024 but increased from 1.4 cm on 10/16/2023. There is a small hiatal hernia. Visualized upper abdomen shows cholecystectomy clips and partially visualized infrarenal abdominal ao rtic ectasia measuring at least 2.8 cm on the current exam but incompletely visualized. Bones: Probably accentuated midthoracic kyphosis. Chronic superior endplate deformity resulting in an terior wedging at T7. Chronic, unchanged from 10/16/2023. IMPRESSION: 1. COPD with moderate to advanced emphysema and previous left upper lobectomy. Scarring and distortio n at the surgical site is unchanged. 2. Approximately 4 pulmonary nodules which are relatively similar compared to 09/23/2024 but increased from 10/16/2023 as outlined above. Indolent neoplasm not excluded and ongoing close surveillance follo w-up is recommended. 3. Small hiatal hernia. 4. Known infrarenal AAA is incompletely imaged. Measured at 3.4 cm on 09/23/2024 PET/CT. [facility], , 01/30/2025 9:02 PM
== END | disposition home or self-care (01) ==
LOC: RADCTMAIN 15:10
PROVIDERS: ATTEND Radiology Radiation Oncology
DX: C34.11 Malignant neoplasm of upper lobe, right bronchus or lung (principal); J43.9 Emphysema, unspecified; J98.4 Other disorders of lung; Z90.2 Acquired absence of lung [part of]; K44.9 Diaphragmatic hernia without obstruction or gangrene; I71.43 Infrarenal abdominal aortic aneurysm, without rupture
CPT/HCPCS: 71250